=== PATIENT | female | born 1940 | race Caucasian/White ===

== ENCOUNTER → 2018-01-19 10:28 | Outpatient (CLI) | payer MEDICARE, SELFPAY | PROVIDERS: PCP Family Medicine; Visit Provider Internal Medicine Interventional Cardiology | DX: R20.0 Anesthesia of skin (principal); I45.4 Nonspecific intraventricular block; I47.1 Supraventricular tachycardia | CPT/HCPCS: 0298T ==

== ENCOUNTER → 2018-02-09 10:15 | Outpatient (CLI) | payer MEDICARE, SELFPAY | PROVIDERS: PCP Family Medicine; Visit Provider Nurse Practitioner Adult Health | DX: G56.02 Carpal tunnel syndrome, left upper limb (principal); I10 Essential (primary) hypertension | CPT/HCPCS: 95909; 99214 ==

== ENCOUNTER 2018-03-26 16:27 | Outpatient (REF) | payer MEDICARE, SELFPAY | END 2018-03-26 16:47 | LOC: NCHCN 16:27 | PROVIDERS: PCP Family Medicine; Visit Provider Family Medicine | DX: R82.90 Unspecified abnormal findings in urine (principal); Z87.440 Personal history of urinary (tract) infections | CPT/HCPCS: 87077; 87086 ==

== ENCOUNTER 2018-04-08 01:06 | Outpatient (CLI) | payer MEDICARE, SELFPAY ==
--- NOTE | 2018-04-08 10:30 | MERGE_ITS ---
*[facility]* *[facility]* [address] [place] [address] Date of study: 04/08/2018 Transthoracic Echocardiography M-mode, complete 2D, complete spectral Doppler, and color Doppler *STUDY CONCLUSIONS* Summary: 1. Left ventricle: The cavity size was normal. Wall thickness was increased increased in a pattern of mild to moderate LVH. Systolic function was normal. The estimated ejection fraction was 60-65%. Wall motion was normal; there were no regional wall motion abnormalities. Findings consistent with diastolic dysfunction. 2. Aortic valve: A bicuspid morphology cannot be excluded; moderately calcified leaflets. There was moderate stenosis. There was trivial regurgitation. Peak velocity (S): 3.5m/sec. Mean gradient (S): 26mm Hg. Valve area (VTI): 1.2cm^2. 3. 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 4. Mitral valve: Moderately calcified annulus. There was mild regurgitation. 5. Right ventricle: The cavity size was normal. Wall thickness was normal. Systolic function was normal. 6. Pulmonary arteries: Pulmonary systolic pressure was increased, in the range of 35mm Hg to 40mm Hg. *PATIENT PRESENTATION* Height: 162.6cm ((64in) ) S/D Pressure: 145 / 80 Weight: 95.7kg ((210.6lb) ) BSA: 2.12m^2 Test start time: 10:45 AM. Test stop time: 11:40 AM. ORDERING Ijeoma rCuz REFERRING Ijeoma Cruz PERFORMING Unknown PERFORMING Nv *PROCEDURE DATA* Procedure information: The patient was identified by two identifiers. This study was interpreted by [facility]. Pertinent images and digital data are archived for permanent storage and are available for subsequent review. Comparison was made to the study of 01/06/2007. Study status: Routine. Transthoracic echocardiography. M-mode, complete 2D, complete spectral Doppler, and color Doppler. A Transthoracic Echocardiogram was performed. Scanning was performed from the parasternal, apical, subcostal, and suprasternal notch acoustic windows. Images were obtained using an [id number] cardiac ultrasound machine. Image quality was adequate. Study completion: The patient tolerated the procedure well. There were no complications. History: PMH: Murmur. *CARDIAC ANATOMY* Left ventricle: The cavity size was normal. Wall thickness was increased increased in a pattern of mild to moderate LVH. Systolic function was normal. The estimated ejection fraction was 60-65%. Wall motion was normal; there were no regional wall motion abnormalities. Findings consistent with diastolic dysfunction. Aortic valve: A bicuspid morphology cannot be excluded; moderately calcified leaflets. Valve mobility was restricted. Doppler: There was moderate stenosis. There was trivial regurgitation. VTI ratio of LVOT to aortic valve: 0.39. Valve area (VTI): 1.2cm^2. Indexed valve area (VTI): 0.6cm^2/m^2. Peak velocity ratio of LVOT to aortic valve: 0.36. Valve area (Vmax): 1.1cm^2. Indexed valve area (Vmax): 0.5cm^2/m^2. Mean velocity ratio of LVOT to aortic valve: 0.41. Valve area (Vmean): 1.3cm^2. Indexed valve area (Vmean): 0.6cm^2/m^2. Mean gradient (S): 26mm Hg. Peak gradient (S): 48.9mm Hg. Aorta: Aortic root: The aortic root was normal in size. 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 Aortic arch: The aortic arch was normal in size. Mitral valve: Moderately calcified annulus. Mobility was not restricted. Doppler: Transvalvular velocity was within the normal range. There was no evidence for stenosis. There was mild regurgitation. Valve area by pressure half-time: 3.8cm^2. Indexed valve area by pressure half-time: 1.8cm^2/m^2. Peak gradient (D): 5.8mm Hg. Left atrium: The atrium was normal in size. Right ventricle: The cavity size was normal. Wall thickness was normal. Systolic function was normal. Pulmonic valve: Doppler: Transvalvular velocity was within the normal range. There was no evidence for stenosis. There was no significant regurgitation. Tricuspid valve: Structurally normal valve. Doppler: Transvalvular velocity was within the normal range. There was no evidence for stenosis. There was mild regurgitation. Pulmonary artery: Pulmonary systolic pressure was increased, in the range of 35mm Hg to 40mm Hg. Right atrium: The atrium was normal in size. Pericardium: There was no pericardial effusion. Systemic veins: Inferior vena cava: Well visualized. The vessel was patent and normal in size. The respirophasic diameter changes were in the normal range (greater than or equal to 50%). Measurements Left ventricle Value Reference LV ID, ED, PLAX 4.9 cm 3.5 - 6.0 LV ID, ES, PLAX 3.4 cm 2.1 - 4.0 LV PW thickness, ED, PLAX 1.1 cm LV end-diastolic volume, 1-p A2C 81 ml LV ejection fraction, 1-p A2C 62 % LV end-diastolic volume, 1-p A4C 55 ml LV ejection fraction, 1-p A4C 53 % LV e', lateral 0.066 m/sec LV E/e', lateral 18 LV e', medial 0.048 m/sec LV E/e', medial 25 LV e', average 0.057 m/sec LV E/e', average 21 Ventricular septum Value Reference IVS thickness, ED, PLAX 1.3 cm LVOT Value Reference LVOT ID, A-P 2.0 cm LVOT area 3.1 cm^2 LVOT peak velocity, S 1.25 m/sec LVOT mean velocity, S 1 m/sec LVOT VTI, S 32.4 cm LVOT peak gradient, S 6.2 mm Hg LVOT mean gradient, S 4.3 mm Hg Stroke volume (SV), LVOT DP 101 ml Stroke index (SV/bsa), LVOT DP 47 ml/m^2 Aortic valve Value Reference Aortic valve peak velocity, S 3.5 m/sec Aortic valve mean velocity, S 2.42 m/sec Aortic valve VTI, S 84.0 cm Aortic mean gradient, S 26 mm Hg Aortic peak gradient, S 48.9 mm Hg VTI ratio, LVOT/AV 0.39 Aortic valve area, VTI 1.2 cm^2 Velocity ratio, peak, LVOT/AV 0.36 Aortic valve area, peak velocity 1.1 cm^2 Velocity ratio, mean, LVOT/AV 0.41 Aortic valve area, mean velocity 1.3 cm^2 Aortic valve area/bsa, mean velocity 0.6 cm^2/m^2 Aortic regurg deceleration 252 cm/s^2 Aortic regurg pressure half-time 456 ms Aorta Value Reference Aortic root ID, ED 2.6 cm Ascending aorta ID, A-P, S 4.1 cm Left atrium Value Reference LA ID, A-P, ES 4.1 cm LA ID/bsa, A-P 1.9 cm/m^2 <=2.2 LA area, ES, A4C 20.6 cm^2 8.8 - 23.4 LA area, ES, A2C 19 cm^2 LA volume/bsa, ES, 1-p A4C 33 ml/m^2 LA volume, ES, 2-p 56 ml LA volume/bsa, ES, 2-p 26 ml/m^2 LA/aortic root ratio 1.58 Mitral valve Value Reference Mitral E-wave peak velocity 1.21 m/sec Mitral A-wave peak velocity 1.61 m/sec Mitral deceleration time 200 ms 150 - 230 Mitral pressure half-time 58 ms Mitral peak gradient, D 5.8 mm Hg Mitral E/A ratio, peak 0.75 Mitral valve area, PHT, DP 3.8 cm^2 Tricuspid valve Value Reference Tricuspid regurg peak velocity 3.1 m/sec Tricuspid peak RV-RA gradient 39.6 mm Hg Right atrium Value Reference RA area, ES, A4C 15.5 cm^2 8.3 - 19.5 Legend: (L) and (H) nicholas values outside specified reference range. I have personally reviewed the images and have reviewed and edited the reported findings. Electronically signed by Chema Constantino 04/08/2018 12:58
== END 2018-04-08 01:26 ==
PROVIDERS: PCP Family Medicine; Visit Provider Family Medicine
DX: R01.1 Cardiac murmur, unspecified (principal); I50.30 Unspecified diastolic (congestive) heart failure; I35.2 Nonrheumatic aortic (valve) stenosis with insufficiency; I34.0 Nonrheumatic mitral (valve) insufficiency
CPT/HCPCS: 93306

== ENCOUNTER → 2018-07-15 13:34 | Outpatient (BNVA) | payer MEDICARE, SELFPAY | PROVIDERS: PCP Family Medicine; Referring Provider Family Medicine; Visit Provider Student in an Organized Health Care Education/Training Program | DX: I35.0 Nonrheumatic aortic (valve) stenosis (principal); I71.9 Aortic aneurysm of unspecified site, without rupture; Z86.73 Personal history of transient ischemic attack (TIA), and cerebral infarction without residual deficits; I10 Essential (primary) hypertension | CPT/HCPCS: 99204; 99215 ==

== ENCOUNTER 2018-09-11 11:12 | Outpatient (CLI) | payer MEDICARE, SELFPAY ==
[2018-09-11 12:32] LABS: ALT 24 U/L (12-78); AST 23 U/L (15-37); Albumin 3.7 g/dL (3.4-5.0); Alkaline Phosphatase 107 U/L (46-116); BUN 22 mg/dL (7-18); Bilirubin, Total 0.5 mg/dL (0.2-1.0); CREATININE 0.83 mg/dL (0.55-1.02); Calcium 8.5 mg/dL (8.5-10.1); Chloride 101 mmol/L (98-107); Glucose 98 mg/dL (70-100); Sodium 140 mmol/L (136-145); Total Protein 6.6 g/dL (6.4-8.2)
== END 2018-09-11 11:32 ==
PROVIDERS: PCP Family Medicine; Visit Provider Family Medicine
DX: R06.09 Other forms of dyspnea (principal)
CPT/HCPCS: 36415; 80053

== ENCOUNTER 2018-09-25 15:32 | Outpatient (REF) | payer MEDICARE, SELFPAY ==
[2018-09-25 19:39] LABS: Abs Immature Grans 0.01 k/cumm (0.0-0.09); Absolute Basophil Count 0.03 k/cumm (0.0-0.2); Absolute Eosinophil Count 0.25 k/cumm (0.0-0.7); Absolute Lymphocyte Count 1.01 k/cumm (1.2-3.4); Absolute Monocyte Count 0.59 k/cumm (0.11-0.7); Absolute Neutrophil Count 4.27 k/cumm (1.2-6.7); Basophils % 0.5; Eosinophils % 4.1; HCT 40.6 % (36.0-46.0); Immature Grans % 0.2; Lymphocytes % 16.4; Mean Corpuscular Hemoglobin 30.7 pg (27.0-33.0); Mean Corpuscular Volume 95.8 fL (80-95); Mean Platelet Volume 11.4 fL (8.0-11.0); Monocytes % 9.6; Neutrophils % 69.2; Platelet Count 267 x1000/uL (130-400); RBC 4.24 m/cumm (4.00-5.20); RBC Distribution Width 12.7 % (11.7-14.6); White Blood Cell Count 6.16 k/cumm (4.4-10.8)
[2018-09-25 21:02] LABS: Cholesterol 182 mg/dL (50-200); HDL Cholesterol 38 mg/dL (40-60); LDL CHOLESTEROL 111 mg/dL (<100); TSH (W/Ref FT4) 1.54 uIU/mL (0.358-3.74); Triglyceride 119 mg/dL (30-150); Vitamin B12 777 pg/mL (193-986)
[2018-09-25 21:09] LABS: ESR 21 MM/HR (0-30)
[2018-09-25 21:24] LABS: C-Reactive Protein 0.55 mg/dL (0.0-0.3); NT-proBNP 83 pg/mL
[2018-09-28 12:41] LABS: IgA 125 mg/dL (85-499); Interpretation SEE COMMENTS; Tissue Transglutaminase IgA <1.2 U/mL (<4.0)
== END 2018-09-25 15:52 ==
LOC: NCHCN 15:32
PROVIDERS: PCP Family Medicine; Visit Provider Family Medicine
DX: E78.5 Hyperlipidemia, unspecified (principal); R53.83 Other fatigue; R06.09 Other forms of dyspnea; R19.7 Diarrhea, unspecified; R63.4 Abnormal weight loss
CPT/HCPCS: 80061; 82784; 83516; 83721; 85652; 82607; 83880; 84443; 85025; 86140

== ENCOUNTER 2018-10-19 01:12 | Outpatient (CLI) | payer MEDICARE, SELFPAY ==
--- NOTE | 2018-10-19 09:38 | DI.RAD_ITS ---
SYMPTOM/DIAGNOSIS: DYSPNEA ON EXERTION, R06.09 PA AND LATERAL CHEST: The heart is normal in size. The lungs are clear. The mediastinal structures and pleura appear intact. CONCLUSION: Normal chest.
== END 2018-10-19 01:32 ==
PROVIDERS: PCP Family Medicine; Visit Provider Family Medicine
DX: R06.09 Other forms of dyspnea (principal)
CPT/HCPCS: 94060; 94726; 71046

== ENCOUNTER 2018-10-19 02:20 | Outpatient (CLI) | payer MEDICARE, SELFPAY ==
--- NOTE | 2018-10-19 | PFT_ITS ---
PULMONARY FUNCTION TEST REPORT Patient - Maite Boggs [birth year] DATE OF SERVICE October 19, 2018 REQUESTING PROVIDER Ijeoma Cruz M.D. INTERPRETATION OF STUDY Spirometry shows no evidence of obstructive airways disease. No bronchodilator response. LUNG VOLUMES - Lung volumes show no evidence of restriction. DIFFUSION CAPACITY- The patient was unable to perform acceptable DLCO maneuver AIRWAY RESISTANCE Normal. IMPRESSION No evidence of obstructive or restrictive pattern. The patient was unable to perform DLCO maneuver. Clinical correlation recommended. When this study was compared to previous one from 07/18/2011, the patient has 160 cc improvement in FVC and 130 cc improvement in FEV1. Verónica Stevenson M.D. Britney DD 10/21/2018 DT - 10/21/2018
[2018-10-19] MEDS: Albuterol HFA 18 GM 200 PUFF INH IH (09:22)
[2018-10-19] MEDS: Inhaler, Assist Device 1 EACH MC (09:22)
== END 2018-10-19 02:40 ==
PROVIDERS: PCP Family Medicine; Visit Provider Family Medicine
DX: R06.09 Other forms of dyspnea (principal); Z87.01 Personal history of pneumonia (recurrent)
CPT/HCPCS: 94060; 94726

== ENCOUNTER 2018-10-28 00:04 | Outpatient (CLI) | payer MEDICARE, SELFPAY ==
--- NOTE | 2018-10-28 06:58 | MERGEMPI_ITS ---
*[facility]* *[facility]* [address] [place] [address] Myocardial Perfusion Imaging - SPECT Regadenoson Date of study: 10/28/2018 *PATIENT PRESENTATION* Height: 162.6cm (64in) Blood Pressure: Weight: 97.3kg (214lb) BSA: 2.14m^2 Referring physician: Ramírez Waite MD Ordering physician: Chema Constantino This study was performed as a Stress Only study Impressions: Normal perfusion by Tc99m Sestamibi Imaging. Summary: 1. Myocardial perfusion imaging: No myocardial perfusion defects noted. 2. The calculated left ventricular ejection fraction after stress: 51%. There is moderate hypokinesis involving the septal wall(s) of the left ventricle. Indication: R06.09. History: Risk factors: REASON FOR VISIT: PATIENT HAS BEEN EXPERIENCING SHORTNESS OF BREATH WITH EVERYDAY ACTIVITY AND INCREASING FATIGUE OVER THE PAST YEAR. PAST MEDICAL HISTORY: BIPOLAR DISORDER, GERD, SHIELA ON BIPAP, CVA, HTN, AORTIC STENOSIS, AORTIC DILATION. 10/19/18 PULMONARY FUNCTION TEST IMPRESSION: NO EVIDENCE OF OBSTRUCTIVE OR RESTRICTIVE PATTERN. FAMILY HISTORY: NONE. SMOKING STATUS: NEVER SMOKER. EXERCISE ROUTINE: NONE. Dyslipidemia. Cholesterol: 182mg/dl. HDL: 38mg/dl. LDL: 111mg/dl. Triglycerides: 119mg/dl. ALLERGIES: LISINOPRIL, ARIPIPRAZOLE, LATEX, AMITRIPTYLINE, PREGABALIN, HYDROCHLOROTHIAZIDE, ADHESIVE BANDAGES, ENVIRONMENTAL. MEDICATIONS: ASPIRIN 81MG, DAILY. AMLODIPINE 15MG, DAILY. SIMVASTATIN 10MG, QPM. ROPINIROLE 3MG, QPM. RANITIDINE HCL 300MG, QHS. QUETIAPINE 250MG, QPM. PANTOPRAZOLE 40MG, DAILY. NITROGLYCERIN 0.4MG, SL PRN. MULTIVITAMIN, DAILY. GABAPENTIN 300MG QHS, 600MG QAM AND NOON. VITAMIN B-12 1,000MCG, DAILY. CLOTRIMAZOLE 45GM TOPICAL, BID. CITALOPRAM 40MG, DAILY. VITAMIN D3 1,000UNIT, DAILY. VENTOLIN HFA 2 PUFF INHALATION, Q6H PRN. Imaging Technique: Protocol: Regadenoson. Acquisition: Gated SPECT; 1 day - rest/stress. The patient was imaged in the supine position. Attenuation correction used. Isotope administration: - Rest. Tc[99m]-sestamibi. Dose: 9mCi. Injection time: 08:20 AM. Injection to stress time: 00:45. - Stress. Tc[99m]-sestamibi. Dose: 28.5mCi. Injection time: 10:20 AM. 1-2 min before end of exercise Baseline ECG: TODAY: SINUS RHYTHM WITH LEFT BUNDLE BRANCH BLOCK. HEART RATE 68 BPM. PREVIOUS EKG 12/25/17: SINUS RHYTHM WITH LEFT BUNDLE BRANCH BLOCK AND LEFT AXIS. Stress protocol: +--------+--+ + + + !Stage !HR!BP (mmHg) !Symptoms !Comments ! +--------+--+ + + + !Baseline!68!136/80 (99) ! ! ! +--------+--+ + + + !1 min !90!134/70 (91) !7 out of 10 chest !Inject Regadenoson.! ! ! ! !discomfort, abdominal ! ! ! ! ! !pain/pressure, nausea ! ! +--------+--+ + + + !3 min !86!138/72 (94) !4 out of 10 chest ! ! ! ! ! !discomfort, headache, ! ! ! ! ! !nausea, feels weak ! ! +--------+--+ + + + !6 min !84!140/80 (100)! ! ! +--------+--+ + + + !10 min !76!166/88 (114)! ! ! +--------+--+ + + + !1 min !--! ! !Inject Regadenoson.! +--------+--+ + + + * Stress results: The rate-pressure product for the peak heart rate and blood pressure was [id number] Hg/min. Stress ECG: MPI STRESS TEST ENDED IN 12MIN 45 SEC WHEN EFFECTS OF REGADENOSON INJECTION SUBSIDED. SIDE EFFECTS RESOLVED FOLLOWING AMINOPHYLLINE INJECTION AT 10MIN 22SEC. APPROPRIATE HEART RATE AND BLOOD PRESSURE RESPONSE TO REGADENOSON INJECTION. 7/10 LEFT STERNAL CHEST PAIN OCCURING WITH REGADENOSON INJECTION. OTHER SYMPTOMS REPORTED INCLUDE ABDOMINAL DISCOMFORT, NAUSEA, HEADACHE, AND AN OVERALL FEELING OF WEAKNESS. PATIENT VISIBLY SHAKEY 6 MIN INTO TESTING. SYMPTOMS RESOLVING FOLLOWING AMINOPHYLLINE INJECTION. OCCASIONAL PVC NOTED. NO ST SEGMENT CHANGES OBSERVED. Myocardial perfusion: Imaging information: gated. No myocardial perfusion defects noted. Ventricular Function (Wall Motion): The calculated left ventricular ejection fraction after stress: 51%. There is moderate hypokinesis involving the septal wall(s) of the left ventricle. Study data: Ramírez Waite MD supervised and was readily available during the procedure. This study was interpreted by [facility]. Study status: Routine. Consent: The risks, benefits, and alternatives to the procedure were explained to the patient and informed consent was obtained. Procedure: Initial setup. A baseline ECG was recorded. Surface ECG leads and manual cuff blood pressure measurements were monitored. Heart sounds: Normal. Lung sounds: Normal. Regadenoson stress test. Stress testing was performed, with regadenoson by intravenous bolus, for a total dose of 0.4mgover 10.00sec, followed by a 5ml saline flush. The infusion was terminated due to per protocol. The patient was unable to exercise due to left bundle branch block. Study completion: All catheters inserted during the procedure were removed. The patient tolerated the procedure well and was discharged from the lab. Discharge: The patient left the laboratory in stable condition. Birthdate: Patient birthdate: 1940. Sex: Gender: female. Study date: Study date: 10/28/2018. Study time: 00:01 AM. Electronically signed by Ramírez Waite MD 10/28/2018 16:56
[2018-10-28] MEDS: Regadenoson 0.4 MG/5 ML SYR IVP (10:32)
== END 2018-10-28 00:24 ==
PROVIDERS: PCP Family Medicine; Visit Provider Student in an Organized Health Care Education/Training Program
DX: R06.09 Other forms of dyspnea (principal); R53.83 Other fatigue; I10 Essential (primary) hypertension; I35.0 Nonrheumatic aortic (valve) stenosis; E78.5 Hyperlipidemia, unspecified
CPT/HCPCS: 78452; 93016; 93018; 93017; J0280; J2785

== ENCOUNTER 2018-11-06 00:39 | Outpatient (CLI) | payer MEDICARE, SELFPAY ==
--- NOTE | 2018-11-06 14:02 | MERGE_ITS ---
*[facility]* *[facility]* [address] [place] [address] Date of study: 11/06/2018 Transthoracic Echocardiography M-mode, complete 2D, complete spectral Doppler, and color Doppler *STUDY CONCLUSIONS* Summary: 1. Left ventricle: The cavity size was normal. Wall thickness was increased in a pattern of mild LVH. Asymmetric hypertrophy with significant septal hypertrophy (16 mm). Systolic function was normal. The estimated ejection fraction was 55-60%. Wall motion was normal; there were no regional wall motion abnormalities. Doppler parameters are consistent with high ventricular filling pressure. 2. Right ventricle: The cavity size was normal. Systolic function was normal. 3. Ventricular septum: Septal motion showed paradoxical motion consistent with Bundle Branch Block. 4. Left atrium: The atrium was mildly dilated. 5. Aortic valve: Trileaflet; moderately thickened, mildly calcified leaflets. Valve mobility was restricted. Transvalvular velocity was increased. There was moderate stenosis. There was mild regurgitation. Peak velocity (S): 3.3m/sec. VTI ratio of LVOT to aortic valve: 0.41. 6. Inferior vena cava: The vessel was patent and normal in size. The respirophasic diameter changes were in the normal range (greater than or equal to 50%), consistent with normal central venous pressure. *PATIENT PRESENTATION* Height: 162.6cm ((64in) ) S/D Pressure: 135 / 85 Weight: 95.7kg ((210.6lb) ) BSA: 2.12m^2 Test start time: 02:25 PM. Test stop time: 03:30 PM. CONSULTING Ijeoma Cruz V PERFORMING Unknown ORDERING Chema Constantino REFERRING Chema Constantino PERFORMING [facility] TUBE CARRIER RT Sabrina Arroyo)(CT), [facility] *PROCEDURE DATA* Procedure information: The patient was identified by two identifiers. This study was interpreted by [facility]. Pertinent images and digital data are archived for permanent storage and are available for subsequent review. Comparison was made to the study of 04/08/2018. Study status: Routine. Transthoracic echocardiography. M-mode, complete 2D, complete spectral Doppler, and color Doppler. A Transthoracic Echocardiogram was performed. Scanning was performed from the parasternal, apical, subcostal, and suprasternal notch acoustic windows. Images were obtained using an [id number] cardiac ultrasound machine. Image quality was adequate. Study completion: The patient tolerated the procedure well. There were no complications. History: PMH: Aortic stenosis i35.0 SOB R06.02. *CARDIAC ANATOMY* Left ventricle: The cavity size was normal. Wall thickness was increased in a pattern of mild LVH. Asymmetric hypertrophy with significant septal hypertrophy (16 mm). Systolic function was normal. The estimated ejection fraction was 55-60%. Wall motion was normal; there were no regional wall motion abnormalities. Findings consistent with diastolic dysfunction. Doppler parameters are consistent with high ventricular filling pressure. Aortic valve: Trileaflet; moderately thickened, mildly calcified leaflets. Valve mobility was restricted. Doppler: Transvalvular velocity was increased. There was moderate stenosis. There was mild regurgitation. VTI ratio of LVOT to aortic valve: 0.41. Valve area (VTI): 1.3cm^2. Indexed valve area (VTI): 0.6cm^2/m^2. Peak velocity ratio of LVOT to aortic valve: 0.36. Valve area (Vmax): 1.1cm^2. Indexed valve area (Vmax): 0.5cm^2/m^2. Mean velocity ratio of LVOT to aortic valve: 0.39. Valve area (Vmean): 1.2cm^2. Indexed valve area (Vmean): 0.6cm^2/m^2. Mean gradient (S): 26.1mm Hg. Peak gradient (S): 42.7mm Hg. Aorta: Aortic root: The aortic root was normal in size. Ascending aorta: The ascending aorta was mildly dilated (41 mm). Mitral valve: Mildly calcified annulus. Mobility was not restricted. Doppler: Transvalvular velocity was within the normal range. There was no evidence for stenosis. There was trivial regurgitation. Valve area by pressure half-time: 2.7cm^2. Indexed valve area by pressure half-time: 1.3cm^2/m^2. Peak gradient (D): 5mm Hg. Left atrium: The atrium was mildly dilated. Right ventricle: The cavity size was normal. Systolic function was normal. Ventricular septum: Septal motion showed paradoxical motion consistent with Bundle Branch Block. Pulmonic valve: Poorly visualized. Doppler: Transvalvular velocity was within the normal range. There was no evidence for stenosis. There was no significant regurgitation. Tricuspid valve: Structurally normal valve. Doppler: Transvalvular velocity was within the normal range. There was no evidence for stenosis. There was trivial regurgitation. Pulmonary artery: Poorly visualized. Pulmonary systolic pressure was in the range of 35mm Hg to 40mm Hg. Right atrium: The atrium was normal in size. Pericardium: There was no pericardial effusion. Systemic veins: Inferior vena cava: Well visualized. The vessel was patent and normal in size. The respirophasic diameter changes were in the normal range (greater than or equal to 50%), consistent with normal central venous pressure. Measurements Left ventricle Value 04/08/2018 Reference LV ID, ED, PLAX 4.6 cm 4.9 3.5 - 6.0 LV ID, ES, PLAX 3.4 cm 3.4 2.1 - 4.0 LV PW thickness, ED, PLAX 1.0 cm 1.1 LV end-diastolic volume, 92 ml 81 1-p A2C LV ejection fraction, 1-p 56 % 62 A2C LV end-diastolic volume, 69 ml 55 1-p A4C LV ejection fraction, 1-p 52 % 53 A4C LV e', lateral 0.072 m/sec 0.066 LV E/e', lateral 15 18 LV e', medial 0.048 m/sec 0.048 LV E/e', medial 23 25 LV e', average 0.06 m/sec 0.057 LV E/e', average 19 21 Ventricular septum Value 04/08/2018 Reference IVS thickness, ED, PLAX 1.7 cm 1.3 LVOT Value 04/08/2018 Reference LVOT ID, A-P 2.0 cm 2.0 LVOT area 3.1 cm^2 3.1 LVOT peak velocity, S 1.17 m/sec 1.25 LVOT mean velocity, S 0.96 m/sec 1 LVOT VTI, S 27.5 cm 32.4 LVOT peak gradient, S 5.5 mm Hg 6.2 LVOT mean gradient, S 3.9 mm Hg 4.3 Stroke volume (SV), LVOT 86 ml 101 DP Stroke index (SV/bsa), 41 ml/m^2 47 LVOT DP Aortic valve Value 04/08/2018 Reference Aortic valve peak 3.3 m/sec 3.5 velocity, S Aortic valve mean 2.47 m/sec 2.42 velocity, S Aortic valve VTI, S 67.0 cm 84.0 Aortic mean gradient, S 26.1 mm Hg 26 Aortic peak gradient, S 42.7 mm Hg 48.9 VTI ratio, LVOT/AV 0.41 0.39 Aortic valve area, VTI 1.3 cm^2 1.2 Velocity ratio, peak, 0.36 0.36 LVOT/AV Aortic valve area, peak 1.1 cm^2 1.1 velocity Velocity ratio, mean, 0.39 0.41 LVOT/AV Aortic valve area, mean 1.2 cm^2 1.3 velocity Aortic valve area/bsa, 0.6 cm^2/m^2 0.6 mean velocity Aorta Value 04/08/2018 Reference Aortic root ID, ED 2.6 cm 2.6 Ascending aorta ID, A-P, S 4.1 cm 4.1 Left atrium Value 04/08/2018 Reference LA ID, A-P, ES 4.0 cm 4.1 LA ID/bsa, A-P 1.9 cm/m^2 1.9 <=2.2 LA area, ES, A4C 21.7 cm^2 20.6 8.8 - 23.4 LA area, ES, A2C 21 cm^2 19 LA volume/bsa, ES, 1-p A4C 39 ml/m^2 33 LA volume, ES, 2-p 70 ml 56 LA volume/bsa, ES, 2-p 33 ml/m^2 26 LA/aortic root ratio 1.52 1.58 Mitral valve Value 04/08/2018 Reference Mitral E-wave peak 1.11 m/sec 1.21 velocity Mitral A-wave peak 1.42 m/sec 1.61 velocity Mitral deceleration time (H) 282 ms 200 150 - 230 Mitral pressure half-time 82 ms 58 Mitral peak gradient, D 5 mm Hg 5.8 Mitral E/A ratio, peak 0.78 0.75 Mitral valve area, PHT, DP 2.7 cm^2 3.8 Tricuspid valve Value 04/08/2018 Reference Tricuspid regurg peak 3 m/sec 3.1 velocity Tricuspid peak RV-RA 35.6 mm Hg 39.6 gradient Right atrium Value 04/08/2018 Reference RA area, ES, A4C 16.7 cm^2 15.5 8.3 - 19.5 Legend: (L) and (H) nicholas values outside specified reference range. I have personally reviewed the images and have reviewed and edited the reported findings. Electronically signed by Arley Flaherty 11/09/2018 07:59
== END 2018-11-06 00:59 ==
PROVIDERS: PCP Family Medicine; Visit Provider Student in an Organized Health Care Education/Training Program
DX: I35.0 Nonrheumatic aortic (valve) stenosis (principal); R06.02 Shortness of breath; I50.1 Left ventricular failure, unspecified; I10 Essential (primary) hypertension; E78.5 Hyperlipidemia, unspecified
CPT/HCPCS: 93306

== ENCOUNTER → 2018-11-18 13:07 | Outpatient (BNVA) | payer MEDICARE, SELFPAY | PROVIDERS: PCP Family Medicine; Visit Provider Student in an Organized Health Care Education/Training Program | DX: I50.32 Chronic diastolic (congestive) heart failure (principal); I35.0 Nonrheumatic aortic (valve) stenosis; I77.819 Aortic ectasia, unspecified site; I63.9 Cerebral infarction, unspecified; I11.0 Hypertensive heart disease with heart failure; R53.83 Other fatigue | CPT/HCPCS: 99214 ==

== ENCOUNTER 2019-02-11 14:51 | Emergency (ER) | payer MEDICARE, SELFPAY ==
[2019-02-11] VITALS (17 sets, daily range): BP systolic 120–149; BP diastolic 57–75; PULSE 70–87; RESP 12–22; TEMP 36.5–36.6; O2SAT 91–97
[2019-02-11 15:46] LABS: Abs Immature Grans 0.01 k/cumm (0.0-0.09); Absolute Basophil Count 0.02 k/cumm (0.0-0.2); Absolute Eosinophil Count 0.24 k/cumm (0.0-0.7); Absolute Lymphocyte Count 1.51 k/cumm (1.2-3.4); Absolute Monocyte Count 0.49 k/cumm (0.11-0.7); Absolute Neutrophil Count 4.72 k/cumm (1.2-6.7); Basophils % 0.3; Eosinophils % 3.4; HCT 41.3 % (36.0-46.0); HGB 13.6 g/dL (12.0-15.5); Immature Grans % 0.1; Lymphocytes % 21.6; Mean Corp. HGB Concentration 32.9 g/dL (32.0-36.0); Mean Corpuscular Hemoglobin 31.4 pg (27.0-33.0); Mean Corpuscular Volume 95.4 fL (80-95); Mean Platelet Volume 10.6 fL (8.0-11.0); Neutrophils % 67.6; Platelet Count 277 x1000/uL (130-400); RBC 4.33 m/cumm (4.00-5.20); White Blood Cell Count 6.99 k/cumm (4.4-10.8)
--- NOTE | 2019-02-11 15:47 | DI.CT_ITS ---
SYMPTOM/DIAGNOSIS: WEAKNESS NONCONTRAST HEAD CT: Comparison is made with 25 December 2017. No intracranial hemorrhage, mass or infarct is seen. There is no significant atrophy.. The ventricles are normal in size. There are no white matter changes visible. No skull fracture or sinus opacification is seen. IMPRESSION: Negative head CT.
--- NOTE | 2019-02-11 15:47 | ED.GENADUL_ITS ---
Discharge Plan Disposition Patient Disposition: HOME Condition: Stable Discharge Details Chief Complaint: GenMedical Clinical Impression: General weakness, Fatigue Primary Care Provider: Ijeoma Cruz V ED Provider: Ramírez Sheridan Home Meds and New Rx's Prescriptions: Continued amlodipine [Norvasc] 10 mg tablet 15 mg PO DAILY RF: 0 spironolactone 25 mg tablet 12.5 mg PO DAILY Qty: 30 RF: 5 multivitamin 1 EACH tablet 1 ea PO DAILY RF: 0 acetaminophen [Tylenol] 325 MG tablet 500 mg PO PRN RF: 0 nitroglycerin [Nitrostat] 0.4 MG tablet, sublingual 0.4 mg Sublingual DIRECTED RF: 0 aspirin [Aspirin Low-Strength] 81 MG tablet,chewable 81 mg PO DAILY RF: 0 albuterol sulfate [Ventolin HFA] 8 GM HFA aerosol inhaler 2 puff Inhalation Q6H PRN RF: 0 clotrimazole 45 GM cream 45 gm Topical BID RF: 0 omega-3 fatty acids-fish oil 1 EACH capsule 1 ea PO DAILY RF: 0 cholecalciferol (vitamin D3) 400 UNIT tablet,chewable 1,000 unit IU DAILY RF: 0 HAND SPLINTS BILATERAL DAILY RF: 0 ropinirole 1 MG tablet 3 mg PO 5 PM RF: 0 cyanocobalamin (vitamin B-12) [Vitamin B-12] 1,000 MCG tablet 1,000 mcg PO DAILY RF: 0 gabapentin 300 MG capsule 600 mg PO .QAM, NOON RF: 0 citalopram [Celexa] 20 mg tablet 40 mg PO DAILY RF: 0 gabapentin 300 MG capsule 300 mg PO HS RF: 0 quetiapine [Seroquel XR] 200 MG tablet extended release 24 hr 200 mg PO .Q5PM RF: 0 quetiapine [Seroquel XR] 50 MG tablet extended release 24 hr 50 mg PO .Q5PM RF: 0 ranitidine HCl 300 MG tablet 300 mg PO HS RF: 0 simvastatin 10 MG tablet 10 mg PO QPM RF: 0 pantoprazole 40 MG tablet,delayed release (DR/EC) 40 mg PO DAILY RF: 0 Discharge Instructions Instructions: Fatigue (ED) Additional Instructions: follow up with your primary care provider within 1-2 weeks if you have difficulty breathing, severe chest or abdominal pain, weakness that is one sided or feel more ill return to the emergency department Medical Decision Making 78 yo female with hx of htn, hld, who comes in with chief complaint of feeling tired and fatigue for weeks but worse today. Denies any focal weakness, fevers, falls, headaches, chest pain or sob or abd pain. Denies new meds or foods and doesn't have any symptoms so doubt CO poisoning. She has no focal neuro deficits on exam, NIH of 0 with CN II-XII intact. She has been under significant stress recently with diagnosed recently with dementia and also states she has someone that is stalking her. This could be psychosomatic symptoms but will evaluate for possible ischemia, obtain ct head to eval for sdh, and eval for anemia and hypothyroidism. No focal motor deficits so doubt cva at this time imaging and labs unremarkable. Does have some bacteria in her urine but denies any uti symptoms so will hold on abx at this time. She has no deficits and feels well enough to go home. Will d/c and advised f/u with pcp and return precautions given Differential Diagnosis anemia, thyroid disorder, sdh Medical Records Medical records reviewed: Yes I reviewed the patient's medical records. Imaging Data Radiologic Study: Attestation: I personally reviewed and interpreted this imaging study as follows: Imaging: X-Ray Radiologist's impression: no acute findings Radiologic Study #2: Attestation: I personally reviewed and interpreted this imaging study as follows: Imaging: CT Scan Radiologist's impression: no acute findings Lab Data Lab results reviewed: Yes I reviewed the patient's lab results. ECG Data Attestation: I personally reviewed and interpreted this ECG (s) as follows: Prior ECG tracings: available for review Interpretation: sinus rhythm, rate of 76, pr 140, qtc 470 HPI General Mode of arrival: ambulatory . Date/Time Provider Initiated Documentation: 02/11/19 15:14 . Limitations to Documentation: no limitations . Information obtained by: patient . History of Present Illness 78 year old F presents to the emergency department with the chief complaint of fatigue, described as moderate, No relieving factors improve symptom(s), No exacerbating factors reported . Patient did receive the following treatments prior to arrival, none Related Data Home Medications Medication Instructions Recorded Confirmed Hand Splints BILATERAL DAILY 11/30/12 11/18/18 acetaminophen [Tylenol] 500 mg PO PRN tab-cap 11/30/12 02/11/19 albuterol sulfate [Ventolin HFA] 2 puff INHALATION Q6H PRN puff 11/30/12 02/11/19 aspirin [Aspirin Low-Strength] 81 mg PO DAILY tab-cap 11/30/12 02/11/19 cholecalciferol (vitamin D3) 1,000 unit IU DAILY tab.chew 11/30/12 02/11/19 clotrimazole 45 gm TOPICAL BID script 11/30/12 02/11/19 multivitamin 1 ea PO DAILY 11/30/12 02/11/19 nitroglycerin [Nitrostat] 0.4 mg SUBLINGUAL DIRECTED 11/30/12 02/11/19 omega-3 fatty acids-fish oil 1 ea PO DAILY 11/30/12 02/11/19 cyanocobalamin (vitamin B-12) 1,000 mcg PO DAILY 11/19/13 02/11/19 [Vitamin B-12] gabapentin 600 mg PO .QAM, NOON 11/19/13 02/11/19 gabapentin 300 mg PO HS 11/08/15 02/11/19 quetiapine [Seroquel XR] 50 mg PO .Q5PM 11/08/15 02/11/19 quetiapine [Seroquel XR] 200 mg PO .Q5PM 11/08/15 02/11/19 ropinirole 3 mg PO 5 PM tab-cap 01/30/17 02/11/19 pantoprazole 40 mg PO DAILY 12/25/17 02/11/19 ranitidine HCl 300 mg PO HS 12/25/17 02/11/19 simvastatin 10 mg PO QPM 12/25/17 02/11/19 amlodipine 10 mg tablet 15 mg PO DAILY tab 07/15/18 02/11/19 citalopram 20 mg tablet 40 mg PO DAILY tab 07/15/18 02/11/19 spironolactone 25 mg tablet 12.5 mg PO DAILY #30 tab 11/18/18 02/11/19 Previous Rx's Medication Instructions Recorded spironolactone 25 mg tablet 12.5 mg PO DAILY #30 tab 11/18/18 Allergies Allergy/AdvReac Type Severity Reaction Status Date / Time lisinopril Allergy Severe Throat Unverified 02/11/19 15:30 Sweilling aripiprazole [From Abilify] Allergy Intermediate Unverified 02/11/19 15:30 latex Allergy Intermediate Topical Unverified 02/11/19 15:30 Irritation amitriptyline AdvReac Intermediate Burning Unverified 02/11/19 15:30 Sensation pregabalin AdvReac Mild Visual Unverified 02/11/19 15:30 Disturbances hydrochlorothiazide AdvReac Unknown Unknown Unverified 02/11/19 15:30 Environmental Allergy Intermediate Rhinitis Uncoded 02/11/19 15:30 adhesive bandages AdvReac Intermediate Itching, Uncoded 02/11/19 15:30 Skinn Irritation General Stated Complaint: GenMedical CRAIG: 3 Review of Systems Review of Systems All systems reviewed & are unremarkable except as noted in HPI and below Constitutional Denies chills and Denies fever(s) Cardiovascular Denies chest pain and Denies dyspnea Respiratory Denies cough and Denies dyspnea Gastrointestinal Denies abdominal pain, Denies nausea and Denies vomiting Genitourinary Denies dysuria Musculoskeletal Denies joint swelling Integumentary/Breasts Denies rash Psychiatric Denies depression Endocrine Denies cold intolerance and Denies heat intolerance [facility] Social History Smoking/Tobacco Use Status: Never Drug use: Never Substance use type: does not use Do you feel safe in your relationship?: Yes Exam Const General: no acute distress Orientation: alert HENMT Head: normal to inspection Ears: external ears normal General nose exam: external nose normal Mouth: moist mucous membranes Eyes General: appearance normal, both eyes and all related structures Neck Neck: normal visual inspection Resp Effort & Inspection: normal respiratory effort and able to speak in complete sentences Cardio Rate: regular rate Skin General skin exam: no rashes or lesions noted Neuro General: alert and oriented x3 Extrem General: normal to inspection Psych Mental Status: mental status grossly normal Course Vital Signs Temperature 36.6 C 02/11/19 15:26 Pulse 84 02/11/19 15:26 Respiratory Rate 16 02/11/19 15:26 Blood Pressure 149/72 H 02/11/19 15:26 Pulse Oximetry 96 02/11/19 15:26 Temperature 36.6 C 02/11/19 15:26 Temperature Source Skin 02/11/19 15:26 Pulse 84 02/11/19 15:26 Respiratory Rate 16 02/11/19 15:39 Respiratory Effort Non-Labored 02/11/19 15:39 Respiratory Depth Normal 02/11/19 15:39 Respiratory Pattern Normal 02/11/19 15:39 Blood Pressure 149/72 H 02/11/19 15:26 Blood Pressure Position Sitting 02/11/19 15:26 Pulse Oximetry 96 02/11/19 15:26 Oxygen Delivery Method Room Air 02/11/19 15:26 Oxygen Flow Rate 0 02/11/19 15:26 Pain Level 0 02/11/19 15:26 Lab/Test Results Lab/Test Results: Laboratory Tests Range/Units 02/11/19 15:30 WBC (4.4-10.8) k/cumm 6.99 RBC (4.00-5.20) m/cumm 4.33 Hgb (12.0-15.5) g/dL 13.6 Hct (36.0-46.0) % 41.3 MCV (80-95) fL 95.4 H MCH (27.0-33.0) pg 31.4 MCHC (32.0-36.0) g/dL 32.9 RDW (11.7-14.6) % 13.0 Plt Count (130-400) x1000/uL 277 MPV (8.0-11.0) fL 10.6 Immature Gran % 0.1 Neutrophils % 67.6 Lymphocytes % 21.6 Monocytes % 7.0 Eosinophils % 3.4 Basophils % 0.3 Absolute Neutrophils (1.2-6.7) k/cumm 4.72 Absolute Lymphocytes (1.2-3.4) k/cumm 1.51 Absolute Monocytes (0.11-0.7) k/cumm 0.49 Absolute Eosinophils (0.0-0.7) k/cumm 0.24 Absolute Basophils (0.0-0.2) k/cumm 0.02
--- NOTE | 2019-02-11 15:47 | DI.RAD_ITS ---
SYMPTOM/DIAGNOSIS: WEAKNESS , ? PNA PA AND LATERAL CHEST: Comparison is made with 19 Oct 2018 The heart is enlarged and the aorta is tortuous, unchanged. The lungs appear clear. No infiltrate, effusion or pulmonary edema is seen. No thoracic compression fractures are present, IMPRESSION: Cardiomegaly. No acute abnormality.
[2019-02-11 15:57] LABS: ALT 21 U/L (14-59); AST 11 U/L (15-37); Albumin 3.6 g/dL (3.4-5.0); Alkaline Phosphatase 99 U/L (46-116); Anion Gap 9.6 mmol/L (3-11); BUN 26 mg/dL (7-18); Bilirubin, Total 0.5 mg/dL (0.2-1.0); CO2 29.4 mmol/L (21.0-32.0); CREATININE 0.88 mg/dL (0.55-1.02); Calcium 8.3 mg/dL (8.5-10.1); Chloride 103 mmol/L (98-107); Glucose 123 mg/dL (70-100); Magnesium 1.8 mg/dL (1.8-2.4); Potassium 3.6 mmol/L (3.5-5.1); Sodium 142 mmol/L (136-145); Total Protein 6.9 g/dL (6.4-8.2)
[2019-02-11 16:00] LABS: Troponin I < 0.05 ng/mL (0.00-0.06)
[2019-02-11 16:22] LABS: TSH (W/Ref FT4) 2.68 uIU/mL (0.36-3.74)
--- NOTE | 2019-02-11 16:47 | DI.VRAD_ITS ---
EXAM: CT Head Without Contrast EXAM DATE/TIME: 02/11/2019 4:27 PM CLINICAL HISTORY: 78 years old, female; Other: Weakness, general; Additional info: ? Pna TECHNIQUE: Imaging protocol: Computed tomography of the head without contrast. COMPARISON: CT HEAD WITHOUT STROKE PROTOCOL 12/25/2017 9:26 AM FINDINGS: Brain: Normal. No hemorrhage. Unremarkable white matter. No mass effect. Ventricles: Normal. No ventriculomegaly. Bones/joints: Unremarkable. No acute fracture. Sinuses: Visualized sinuses are unremarkable. No fluid levels. Mastoid air cells: Visualized mastoid air cells are well aerated. No mastoid effusion. Soft tissues: Unremarkable. Vasculature: Calcifications of bilateral vertebral and internal carotid arteries. IMPRESSION: No acute intracranial abnormality. Dictated and Authenticated by: Davin Sagastume MD. Ordering:DEVEN Elmore MD
--- NOTE | 2019-02-11 16:53 | DI.VRAD_ITS ---
EXAM: XR Chest, 2 Views EXAM DATE/TIME: 02/11/2019 4:19 PM CLINICAL HISTORY: 78 years old, female; Other: Weakness; Additional info: ? Pna TECHNIQUE: Imaging protocol: XR of the chest, 2 views. COMPARISON: CR XR CHEST 2V PA LATERAL 10/19/2018 9:30 AM FINDINGS: Lungs: Unremarkable. No consolidation. Pleural space: Unremarkable. No pleural effusion. No pneumothorax. Heart/Mediastinum: Unremarkable. No cardiomegaly. Bones/joints: Degenerative changes of the spine. IMPRESSION: No acute abnormality. Dictated and Authenticated by: Davin Sagastume MD. Ordering:DEVEN Elmore MD
[2019-02-11 17:07] LABS: Bilirubin Negative (Negative); Blood Negative (Negative); Clarity Clear (Clear); Glucose Negative (Negative); Ketones Negative (Negative); Leukocyte Esterase Small (Negative); Nitrite Negative (Negative); Urobilinogen 0.2 EU/dL (Up TO 0.2)
[2019-02-11 17:21] LABS: Epithelial Cells Moderate HPF (Negative); RBC Negative (0-2)
[2019-02-11 17:22] LABS: Bacteria Few HPF (Negative); C & S Indicated? Yes; Casts Negative LPF (Negative); Crystals Negative HPF (Negative); Mucus Negative (Negative); Other Cells Mod Transitional (Negative)
== END 2019-02-11 17:42 | disposition home or self-care (01) ==
PROVIDERS: Emergency Provider Emergency Medicine; PCP Family Medicine
DX: R53.1 Weakness (principal); R53.83 Other fatigue; I10 Essential (primary) hypertension
CPT/HCPCS: 36415; 80053; 93005; 99285; 70450; 71046; 81003; 81015; 83735; 84443; 84484; 85025; 87086; 93010; 99284

== ENCOUNTER 2019-04-02 02:11 | Outpatient (CLI) | payer MEDICARE, SELFPAY ==
--- NOTE | 2019-04-02 13:29 | DI.US_ITS ---
APPROVED REPORT Conclusion Left Ventricle : The left ventricle is normal size. The left ventricular systolic function is normal. The left ventricular ejection fraction is within the normal range. Mild concentric left ventricular hypertrophy. The mid anteroseptal wall is mildly hypokinetic. The apical anteroseptal wall is mildly hypokinetic. The apical anterior wall is mildly hypokinetic. The diastolic function is abnormal. Left atrial pressure is elevated. LVEF is 55-60%. Right Ventricle : Right ventricle is normal in size. The right ventricular systolic function appears to be normal. Atria : Left atrium is mildly dilated. The right atrium size is normal. Aortic Valve : Aortic valve is possibly bicuspid. Aortic valve leaflets are moderately thickened. Mod erate aortic stenosis (mean gradient =30 mmHg, peak gradient equals 52 mmHg). Mitral Valve : The mitral valve is thickened but opens well. Moderate mitral annular calcification. M ild mitral stenosis (mean pressure gradient=2.5 mmHg). Mild mitral regurgitation. Great Vessels : The IVC is normal in size and collapses >50% with inspiration. Tricuspid Valve : The tricuspid valve is normal in structure. Mild tricuspid regurgitation. The RVSP is 35-40 mmHg. Echocardiogram dated 11/06/2018 the aortic valve peak gradient has increased from 42-52 but JERAD has no t changed significantly (1.29cm2). The mean gradient has increased from 26-30mmHg. Apical and mid a nteroseptal mild hypokinesis is now present. EXAM: Comprehensive 2D, Doppler, and color-flow Echocardiogram Patient Location: Out-Patient Cook Helper Dessert: Ami Shin [facility] ([facility]) Rhythm: BBB Indications: shortness of breath. aortic stenosis r06.02, i35.0 Left Ventricle The left ventricle is normal size. The left ventricular systolic function is normal. The left ventric ular ejection fraction is within the normal range. Mild concentric left ventricular hypertrophy. The basal anteroseptal wall is mildly hypokinetic. The mid anteroseptal wall is mildly hypokinetic. The a pical anteroseptal wall is mildly hypokinetic. The apical anterior wall is mildly hypokinetic. The di astolic function is abnormal. Left atrial pressure is elevated. LVEF is 55-60%. Right Ventricle Right ventricle is normal in size. The right ventricular systolic function appears to be normal. Atria Left atrium is mildly dilated. The right atrium size is normal. Aortic Valve Aortic valve is possibly bicuspid. Aortic valve leaflets are moderately thickened. Moderate aortic st enosis. JERAD by VTI 1.29cm2. JERAD by vmax is 1.1cm2. JERAD indexed 0.56cm2/m2. Peak and mean gradients are 52 and 30mmhg respectively. DI by VTI = 0.41. Mild aortic regurgitation. Mitral Valve The mitral valve is thickened but opens well. Moderate mitral annular calcification. Mild mitral sten osis (mean pressure gradient=2.5 mmHg). Mild mitral regurgitation. Tricuspid Valve The tricuspid valve is normal in structure. Mild tricuspid regurgitation. The RVSP is 35-40 mmHg. Pulmonic Valve Pulmonic valve is not well visualized. Trace pulmonic regurgitation. Great Vessels The aortic root is normal in size. Ascending aorta is mildly dilated (4.1). The IVC is normal in size and collapses >50% with inspiration. Pericardium Prominent anterior epicardial fat pad is present. 2D Dimensions IVSd 1.67 cm F: 0.6-1.0 LV EDV A2C 69.40 mL PWd 1.15 cm F: 0.6 - 1.0 LV EDV A4C 62.50 mL LVDd 4.63 cm F: 3.9 - 5.3 LA Volume Index A2C 28.28 mL/m2 LVDs 3.10 cm F: 2.2 - 3.5 LA Volume Index A4C 38.02 mL/m2 Aortic Root 2.73 cm F: 2.7 - 3.3 LA Volume Index Biplane 33.82 mL/m2 RA Area A4C 18.08 cm2 LA Area A4C 22.84 cm2 LVOT 1.99 cm (M/F) 1.5-2.5 LA Area A2C 20.32 cm2 Ascending Aorta 4.09 cm F: 2.3 - 3.1 EF AP4 57.60 % LVEF (Teich) 61.66 % EF AP2 58.93 % LVEF (Benitez's) 56.42 % F: 54 - 74 EF BP 56.42 % LV Volume 49.27 mL F: 46 - 106 LV Volume Index 24.75 mL/m2 F: 29 - 61 FS 33.07 % LV Diastology E Decel Time 147.00 (160-240 msec) E/A Ratio 0.7 MED E' 0.04 (>0.07 m/s) LV E/e MED 31.92 (<14) LAT E' 0.06 (>0.1 m/s) LV E/e LAT 17.37 (<14) Pulm Vein s 0.52 m/s PV S/D Ratio 1.44 Pulm Vein d 0.36 m/s Pulm Vein a 0.41 m/s A-A Duration 135.37 msec Aortic Valve LVOT Area 3.11 cm2 LVOT Peak Martín. 1.30 m/s LVOT Mean Martín. 1.08 m/s LVOT Peak Gr. 6.71 mmHg JERAD Vmax Index 0.56 cm2/m2 LVOT Mean Gr. 5.02 mmHg LVOT VTI 0.31 m JERAD Mean Martín. Index 0.65 cm2/m2 AoV Peak Martín. 3.62 (0.5-1.3 m/s) AoV Mean Martín. 2.61 m/s AO Peak GR. 52.35 mmHg AO Mean GR. 30.43 (<5 mmHg) AO VTI 0.76 (0.18-0.25 m) JERAD (VTI) 1.29 (2.5-4.5 cm2) JERAD (VTI) Index 0.65 cm/m2 Mitral Valve MV E Max Martín. 1.12 (0.4-1.3 m/s) MVA VTI 4.62 (4.0-6.0 cm2) MV A Velocity 1.68 (0.4-1.3 m/s) E/A Ratio 0.67 MV Decel. Time 146.77 (160-240 msec) MV PHT 42.56 msec MVA PHT 5.17 cm2 Tricuspid Valve TR P. Velocity 3.01 m/s TV Regurg Vmax 3.01 m/s TR P. Gradient 36.36 mmHg
== END 2019-04-02 02:31 ==
PROVIDERS: PCP Family Medicine; Visit Provider Student in an Organized Health Care Education/Training Program
DX: R06.02 Shortness of breath (principal); I35.0 Nonrheumatic aortic (valve) stenosis; I34.8 Other nonrheumatic mitral valve disorders; I50.1 Left ventricular failure, unspecified; I50.32 Chronic diastolic (congestive) heart failure
CPT/HCPCS: 93306

== ENCOUNTER → 2019-04-09 10:26 | Outpatient (BNVA) | payer MEDICARE, SELFPAY | PROVIDERS: PCP Family Medicine; Referring Provider Family Medicine; Visit Provider Internal Medicine Cardiovascular Disease | DX: I77.819 Aortic ectasia, unspecified site (principal); I50.30 Unspecified diastolic (congestive) heart failure; I35.0 Nonrheumatic aortic (valve) stenosis; R53.83 Other fatigue; I11.0 Hypertensive heart disease with heart failure | CPT/HCPCS: 99204; 99215 ==

== ENCOUNTER 2019-07-19 01:41 | Outpatient (CLI) | payer MEDICARE, SELFPAY ==
--- NOTE | 2019-07-19 07:57 | DI.US_ITS ---
EXAM: US PELVIS TRANSVAGINAL CLINICAL HISTORY: POSTMENOPAUSAL VAGINAL BLEEDING, N95.0. TECHNIQUE: Ultrasound of the pelvic, both abdmonal and tranvaginal was performed using standard prot ocol. COMPARISON: No previous for comparison. FINDINGS: KIDNEYS: Kidneys are symmetric in size. No evidence of renal calculi. No evidence of hydronephrosis. No renal mass or cyst identified. UTERUS: Position: Anteverted. Size: 5.4 x 2.5 x 3.9 cm Endometrium: 0.3 cm. Normal for patient's menstrual status. Myometrium: There are 2 myometrial masses. The larger measures 1.9 x 1.6 x 2.4 cm. The smaller wayne ures 1.5 x 1.6 x 2.5 cm. These are likely uterine fibroids. Cervix: Unremarkable as visualized. OVARIES: Right: Not visualized transabdominally or transvaginally. Left: Not visualized transabdominally or transvaginally. CUL-DE-SAC: Free fluid: None. IMPRESSION: 1. Normal sonographic appearance of the kidneys. 2. Fibroid uterus. Endometrial stripe within normal limits for the patient's age and menstrual statu s. 3. Ovaries not visualized transabdominally or transvaginally.
== END 2019-07-19 02:01 ==
PROVIDERS: PCP Family Medicine; Visit Provider Family Medicine
DX: N95.0 Postmenopausal bleeding (principal); N85.4 Malposition of uterus; D25.9 Leiomyoma of uterus, unspecified
CPT/HCPCS: 76830; 76856

== ENCOUNTER 2019-07-30 09:09 | Outpatient (REF) | payer MEDICARE, SELFPAY ==
--- NOTE | 2019-07-30 08:00 | SKI_PTH ---
PATIENT: Maite Boggs LOC: [facility] U#:[id number] AGE/SX: 78/F ROOM: RE07/30/[address]: Ijeoma Cruz V : 1940 BED: DIS: 07/30/2019 SPEC #: [id number] RECD: 08/02/19 12:28 STATUS: TANVIR RELeslye #: [id number] YAMILETH: 07/30/19 08:[address]: Ijeoma Cruz V DEPT: Surgical Specimen RECD BY: Dulce Woodall Tissues: 1 - SKIN BIOPSY(SHAVE/PUNCH) Procedures: SKIN LEVEL 4 Comments: [id number]
== END 2019-07-30 09:29 ==
LOC: NCHCN 09:09
PROVIDERS: PCP Family Medicine; Visit Provider Family Medicine
DX: C44.319 Basal cell carcinoma of skin of other parts of face (principal)
CPT/HCPCS: 88305

== ENCOUNTER → 2019-10-07 10:29 | Outpatient (BNVA) | payer MEDICARE, SELFPAY | PROVIDERS: PCP Family Medicine; Referring Provider Family Medicine; Visit Provider Internal Medicine Cardiovascular Disease | DX: R01.1 Cardiac murmur, unspecified (principal); I50.30 Unspecified diastolic (congestive) heart failure; I35.0 Nonrheumatic aortic (valve) stenosis; R53.83 Other fatigue; I11.0 Hypertensive heart disease with heart failure | CPT/HCPCS: 99442; 99213 ==

== ENCOUNTER → 2020-04-04 10:27 | Outpatient (BNVA) | payer MEDICARE, SELFPAY | PROVIDERS: PCP Family Medicine; Referring Provider Family Medicine; Visit Provider Internal Medicine Cardiovascular Disease | DX: I35.0 Nonrheumatic aortic (valve) stenosis (principal); I50.30 Unspecified diastolic (congestive) heart failure; I11.0 Hypertensive heart disease with heart failure; Z86.73 Personal history of transient ischemic attack (TIA), and cerebral infarction without residual deficits | CPT/HCPCS: 99214 ==

== ENCOUNTER 2020-05-02 14:07 | Outpatient (REF) | payer MEDICARE, SELFPAY ==
[2020-05-02 19:46] LABS: ALT 15 U/L (14-59); AST 12 U/L (15-37); Albumin 3.9 g/dL (3.4-5.0); Alkaline Phosphatase 89 U/L (46-116); Anion Gap 7.7 mmol/L (3-11); BUN 22 mg/dL (7-18); Bilirubin, Total 0.6 mg/dL (0.2-1.0); CO2 29.3 mmol/L (21.0-32.0); CREATININE 0.98 mg/dL (0.55-1.02); Calcium 8.6 mg/dL (8.5-10.1); Calculated LDL 169 mg/dL (<100); Chloride 106 mmol/L (98-107); Cholesterol 236 mg/dL (<200); Estimated GFR 54.75 (mL/min/1.73m2); Glucose 101 mg/dL (74-106); HDL Cholesterol 44 mg/dL (40-60); Potassium 4.6 mmol/L (3.5-5.1); Sodium 143 mmol/L (136-145); TSH (W/Ref FT4) 1.54 uIU/mL (0.36-3.74); Total Protein 6.9 g/dL (6.4-8.2); Triglyceride 117 mg/dL (<150)
== END 2020-05-02 14:27 ==
LOC: NCHCN 14:07
PROVIDERS: PCP Family Medicine; Visit Provider Family Medicine
DX: I10 Essential (primary) hypertension (principal); E78.5 Hyperlipidemia, unspecified; D64.9 Anemia, unspecified; F31.9 Bipolar disorder, unspecified
CPT/HCPCS: 80053; 80061; 84443; 85014; 85018

== ENCOUNTER 2020-08-30 02:43 | Observation (INO) | payer MEDICARE, SELFPAY ==
[2020-08-30] VITALS (20 sets, daily range): BP systolic 119–161; BP diastolic 53–101; PULSE 63–84; RESP 11–21; TEMP 36.2–36.9; O2SAT 92–97
--- NOTE | 2020-08-30 02:30 | RT.EKG_ITS ---
APPROVED REPORT Exam: Resting ECG Patient Location: E HR:83 bpm ECG Measurements Heart Rate 83 AXIS MI 177 P -50 QRSd 140 QRS -50 QT 425 T 108 QTc 501 Conclusion Ectopic atrial rhythm...abnormal P axis, normal rate Left bundle branch block...QRSd>120, broad/notched R ST elevation secondary to IVCD...Multiple VCG criteria
--- NOTE | 2020-08-30 03:00 | DI.CT_ITS ---
EXAM: CT HEAD WO CLINICAL HISTORY: weakness. TECHNIQUE: Imaging Protocol: Axial computed tomography images with coronal and sagittal reformatted images were created and reviewed COMPARISON: CT CT HEAD WO from 02/11/2019 FINDINGS: There are no skull fractures nor fluid in the visualized paranasal sinuses. There is no evidence of intracranial hemorrhage, mass effect, or shift of midline structures. There are no extra-axial fluid collections. The ventricles are not enlarged or shifted and there is no blo od within the ventricular system nor within the basal cisterns. Heavy calcification of both vertebral arteries at the skull base is noted as well as the intracaverno us and supraclinoid internal carotid arteries. IMPRESSION: No acute intracranial findings on this noninfused CT scan of the brain. Heavy vascular calcifications the skull base as described above. If clinically indicated follow-up MRI can be performed. RADIATION DOSE DELIVERED: 713.3mGy.cm Total DLP DATA REPOSITORY: All CT scans at this facility are submitted to the National Radiology Data Registry (NRDR) Dose Index Registry (DIR) with the [employer] (A[employer]). RADIATION OPTIMIZATION: All CT scans at this facility use at least one of these dose optimization te chniques: automated exposure control; mA and/or kV adjustment per patient size (includes targeted exa ms where dose is matched to clinical indication); or iterative reconstruction.
--- NOTE | 2020-08-30 03:05 | ED.GENADUL_ITS ---
Discharge Plan Disposition Patient Disposition: [facility] INPATIENT Condition: Stable Discharge Details Chief Complaint: Dizzy/Sync Clinical Impression: Light-headed, Dizziness, Elevated troponin Primary Care Provider: Ijeoma Cruz V ED Provider: Ramírez Sheridan Home Meds and New Rx's Prescriptions: No Action N-acetyl cysteine capsule PO DAILY RF: 0 amlodipine [Norvasc] 10 mg tablet 15 mg PO DAILY RF: 0 spironolactone 25 mg tablet 12.5 mg PO DAILY Qty: 30 RF: 5 multivitamin 1 EACH tablet 1 ea PO DAILY RF: 0 acetaminophen [Tylenol] 325 MG tablet 500 mg PO PRN RF: 0 nitroglycerin [Nitrostat] 0.4 MG tablet, sublingual 0.4 mg Sublingual DIRECTED RF: 0 aspirin [Aspirin Low-Strength] 81 MG tablet,chewable 81 mg PO DAILY RF: 0 albuterol sulfate [Ventolin HFA] 8 GM HFA aerosol inhaler 2 puff Inhalation Q6H PRN RF: 0 clotrimazole 45 GM cream 45 gm Topical BID RF: 0 omega-3 fatty acids-fish oil 1 EACH capsule 1 ea PO DAILY RF: 0 cholecalciferol (vitamin D3) 400 UNIT tablet,chewable 1,000 unit IU DAILY RF: 0 ropinirole 1 mg tablet 3 mg PO 5 PM RF: 0 cyanocobalamin (vitamin B-12) [Vitamin B-12] 1,000 MCG tablet 1,000 mcg PO DAILY RF: 0 gabapentin 300 mg capsule 600 mg PO .COMPLEX RF: 0 quetiapine [Seroquel XR] 200 MG tablet extended release 24 hr 200 mg PO .Q5PM RF: 0 quetiapine [Seroquel XR] 50 MG tablet extended release 24 hr 50 mg PO .Q5PM RF: 0 simvastatin 10 MG tablet 10 mg PO QPM RF: 0 pantoprazole 40 mg tablet,delayed release (DR/EC) 20 mg PO DAILY RF: 0 Medical Decision Making 80 yo female with hx of aortic stenosis, diastolic chf, who comes in with ems with intermittent feeling dizzy and generally weak. She states for several days she has felt more tired and weak tessie normal. Tonight she noticed a strange smell and called 911. The fire department cleared her house without finding any gas leaks per report and she reported her dizziness symptoms and weakness so ems brought her here. She states after the smell she started to have a sensation of room unsteadiness, no falls and has no dizziness/unsteadiness now. She denies fevers, chills, chest pain, dyspnea, cough, abdominal pain. She has no focal neuro deficits on exam with good finger operations management professionals strength, no drift, CN II-XII intact, NIH of 0. She does note a mild frontal headache since having the smell, not the worst of her life and was not thunderclap on presentation. She is still feeling general weakness now as her only symptom despite having good strength on her exam. Will obtain labs to evaluate for anemia, electrolyte abnormalities and also obtain ua to evaluate for uti. Has no cough, dyspnea or fevers so doubt pneumonia and is vaccinated for covid so doubt this. Symptoms not consistent with sah but given the headache and weakness will obtain ct to evaluate for possible subdural. no findings to suggest cva on exam. pt remains stable, only lab abnormality is a troponinin of 0.38 and has never had an elevation in the past. She states she has had several episodes in the past where she will feel lightheaded and dizzy similar to tonight but never was evaluated for this. She continues to deny any chest discomfort or dyspnea. Will consult with cardiology at [facility] Spoke with Dr. Louis who reviewed case and presentation and agrees with holding on heparin at this time given lack of chest discomfort or dyspnea. He did recommend trending troponins and obtaining echo, if troponin significantly elevates then would heparanize and reconsult cardiology for possible transfer. Spoke with Dr. Stark who accepts for admission. Other possible cause of her symptoms would be a small cva given the change in smell but given this resolved and has no deficits feel this is unlikely Differential Diagnosis Differential Diagnosis: anemia, electrolyte abnormality, ich, uti Medical Records Medical records reviewed: Yes I reviewed the patient's medical records. Imaging Data Radiologic Study: Attestation: I personally reviewed and interpreted this imaging study as follows: Imaging: CT Scan My impression: no acute findings Radiologist's impression: IMPRESSION: 1. No acute intracranial abnormality seen. 2. Marked degeneration of the right TMJ. Radiologic Study #2: Attestation: I personally reviewed and interpreted this imaging study as follows: Imaging: X-Ray Radiologist's impression: no acute findings on cxr Lab Data Lab results reviewed: Yes I reviewed the patient's lab results. ECG Data Attestation: I personally reviewed and interpreted this ECG (s) as follows: Prior ECG tracings: available for review Interpretation: sinus rhythm, rate of 83, pr 177, left bundle branch block, no acute changes from prior ekg HPI General Mode of arrival: EMS . Date/Time Provider Initiated Documentation: 08/30/20 02:55 . Limitations to Documentation: no limitations . Information obtained by: patient . History of Present Illness 80 year old F presents to the emergency department with the chief complaint of dizzy, described as mild, and it has been intermittent. No relieving factors improve symptom(s), No exacerbating factors reported . Patient did receive the following treatments prior to arrival, none Related Data Home Medications Medication Instructions Recorded Confirmed acetaminophen [Tylenol] 500 mg PO PRN tab-cap 11/30/12 08/30/20 albuterol sulfate [Ventolin HFA] 2 puff INHALATION Q6H PRN puff 11/30/12 08/30/20 aspirin [Aspirin Low-Strength] 81 mg PO DAILY tab-cap 11/30/12 08/30/20 cholecalciferol (vitamin D3) 1,000 unit IU DAILY tab.chew 11/30/12 08/30/20 clotrimazole 45 gm TOPICAL BID script 11/30/12 08/30/20 multivitamin 1 ea PO DAILY 11/30/12 08/30/20 nitroglycerin [Nitrostat] 0.4 mg SUBLINGUAL DIRECTED 11/30/12 04/04/20 omega-3 fatty acids-fish oil 1 ea PO DAILY 11/30/12 08/30/20 cyanocobalamin (vitamin B-12) 1,000 mcg PO DAILY 11/19/13 08/30/20 [Vitamin B-12] quetiapine [Seroquel XR] 50 mg PO .Q5PM 11/08/15 08/30/20 quetiapine [Seroquel XR] 200 mg PO .Q5PM 11/08/15 08/30/20 simvastatin 10 mg PO QPM 12/25/17 08/30/20 amlodipine 10 mg tablet 15 mg PO DAILY tab 07/15/18 08/30/20 spironolactone 25 mg tablet 12.5 mg PO DAILY #30 tab 11/18/18 08/30/20 N-acetyl cysteine PO DAILY 04/09/19 04/04/20 ropinirole 1 mg tablet 3 mg PO 5 PM tab-cap 04/09/19 08/30/20 gabapentin 300 mg capsule 600 mg PO .COMPLEX cap 04/13/19 08/30/20 pantoprazole 40 mg tablet,delayed 20 mg PO DAILY tab 04/13/19 08/30/20 release Previous Rx's Medication Instructions Recorded spironolactone 25 mg tablet 12.5 mg PO DAILY #30 tab 11/18/18 Allergies Allergy/AdvReac Type Severity Reaction Status Date / Time lisinopril Allergy Severe Throat Unverified 08/30/20 02:55 Sweilling aripiprazole [From Abilify] Allergy Intermediate Unverified 08/30/20 02:55 latex Allergy Intermediate Topical Unverified 08/30/20 02:55 Irritation amitriptyline AdvReac Intermediate Burning Unverified 08/30/20 02:55 Sensation pregabalin AdvReac Mild Visual Unverified 08/30/20 02:55 Disturbances hydrochlorothiazide AdvReac Unknown Unknown Unverified 08/30/20 02:55 Environmental Allergy Intermediate Rhinitis Uncoded 08/30/20 02:55 adhesive bandages AdvReac Intermediate Itching, Uncoded 08/30/20 02:55 Skinn Irritation General Stated Complaint: Dizzy/Sync CRAIG: 3 Review of Systems All systems reviewed & are unremarkable except as noted in HPI and below Constitutional Constitutional: Denies chills and Denies fever(s) Eyes Eyes: Denies loss of vision ENT Ears, Nose, Mouth, and Throat: Denies change in voice Cardiovascular Cardiovascular: Denies chest pain and Denies dyspnea Respiratory Respiratory: Denies cough and Denies dyspnea Gastrointestinal Gastrointestinal: Denies abdominal pain, Denies nausea and Denies vomiting Genitourinary Genitourinary: Denies dysuria Neurologic Neurologic: Denies loss of vision [facility] Medical History (Updated 08/30/20 @ 04:28 by Ramírez Sheridan MD) Anemia Anxiety Aortic dilatation Aortic stenosis Balance problem Bicuspid aortic valve Bipolar disorder Carpal tunnel syndrome, bilateral Cervicalgia Chronic diarrhea CVA (cerebral vascular accident) (~1999) Diastolic CHF Diastolic dysfunction Diverticulosis of colon Dizziness Dysphagia Exercise induced bronchospasm Fatigue Fibromyalgia Frequent headaches GERD (gastroesophageal reflux disease) Helicobacter pylori (H. pylori) infection Hyperlipidemia Hypertension Left leg numbness Memory deficit Murmur Myalgia and myositis SHIELA treated with BiPAP Palliative care patient Post traumatic stress disorder Reactive depression (situational) Schizoaffective disorder Seasonal affective disorder Skin tag Sleep apnea Tinnitus Unintentional weight loss Surgical History History of hip replacement Hx of tonsillectomy S/P cholecystectomy (~2001) Family History Mother Bipolar 1 disorder, mixed Heart disease Alcohol abuse Son Alcohol abuse Heart disease Bipolar 1 disorder, mixed Son No problems noted. Son No problems noted. Daughter No problems noted. 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 Pets and animals: No Current gender identity: female What is your relationship status?: How often do you talk on the phone with friends or family?: twice per week How often do you get together with friends or relatives?: once per week How often do you attend jehovah's witness or yazidism services?: 1-3 times per year Panel score (0-1 are the most socially isolated patients): 2 What type of physical activity do you participate in: none and sedentary lifestyle Xochitl/Congregation: Congregation Special xochitl needs: No Seatbelt use: always Water heater temp set <120 deg: Yes Working smoke detector in home: Yes Fire extinguisher in home: Yes Do you feel safe at home: Yes Do you feel safe in your relationship?: Yes Additional Social history: Happily to since 1959. Grew up next door to each other in [place], [place]. Lots of financial stress. Run out of money every month, even with combined SS. Lives in [address] housing. 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 Has a vehicle; only excess needs one. Exam Const General: no acute distress Orientation: alert HENMT Head: normal to inspection Ears: external ears normal General nose exam: external nose normal Mouth: moist mucous membranes Eyes General: appearance normal, both eyes and all related structures Neck Neck: normal visual inspection Resp Effort & Inspection: normal respiratory effort and able to speak in complete sentences Cardio Rate: regular rate Skin General skin exam: no rashes or lesions noted Neuro General: patient alert and patient oriented x3 Extrem General: normal to inspection Psych Mental Status: mental status grossly normal Course Vital Signs Vital signs: Vital Signs Temperature 36.7 C 08/30/20 02:45 Pulse 84 08/30/20 02:45 Respiratory Rate 15 08/30/20 02:45 Blood Pressure 154/101 H 08/30/20 02:45 Pulse Oximetry 97 08/30/20 02:45 Temperature 36.7 C 08/30/20 02:45 Temperature Source Tympanic 08/30/20 02:45 Pulse 84 08/30/20 02:45 Respiratory Rate 15 08/30/20 02:45 Respiratory Effort Non-Labored 08/30/20 02:58 Respiratory Depth Normal 08/30/20 02:58 Respiratory Pattern Normal 08/30/20 02:58 Blood Pressure 154/101 H 08/30/20 02:45 Blood Pressure Position Supine 08/30/20 02:45 Pulse Oximetry 97 08/30/20 02:45 Oxygen Delivery Method Room Air 08/30/20 02:45 Oxygen Flow Rate 0 08/30/20 02:45
[2020-08-30 03:06] LABS: Abs Immature Grans 0.02 10^3/uL (0.0-0.06); Absolute Basophil Count 0.03 10^3/uL (0.0-0.2); Absolute Eosinophil Count 0.23 10^3/uL (0.0-0.7); Absolute Lymphocyte Count 1.79 10^3/uL (1.2-3.4); Absolute Monocyte Count 0.57 10^3/uL (0.1-0.8); Absolute Neutrophil Count 4.79 10^3/uL (1.2-6.7); Basophils % 0.4; Eosinophils % 3.1; HCT 41.6 % (36.0-46.0); HGB 13.6 g/dL (11.2-15.7); Immature Grans % 0.3; Lymphocytes % 24.1; MCH 31.1 pg (27.0-33.0); MCHC 32.7 % (32.0-36.0); MPV 10.1 fL (8.0-11.0); Monocytes % 7.7; Neutrophils % 64.4; Nucleated RBC 0 %; Platelet Count 272 10^3/uL (130-400); RBC 4.38 10^6/uL (3.93-5.22); RDW-SD 42.9 fL; WBC 7.43 10^3/uL (4.4-10.8)
[2020-08-30] MEDS: Acetaminophen 500 MG TAB 1000 MG PO (03:19)
--- NOTE | 2020-08-30 03:19 | NUR.NOTE ---
Nursing Note: Pt to radiology via stretcher
[2020-08-30 03:21] LABS: Prothrombin Time 10.4 sec (9.3-11.0)
[2020-08-30 03:23] LABS: Bilirubin Negative (Negative); Blood Negative (Negative); Clarity Clear (Clear); Glucose Negative (Negative); Ketones Negative (Negative); Leukocyte Esterase Negative (Negative); Nitrite Negative (Negative); Urobilinogen 0.2 EU/dL (Up TO 0.2)
--- NOTE | 2020-08-30 03:30 | DI.RAD_ITS ---
EXAM: XR PORTABLE CHEST AP CLINICAL HISTORY: weakness, elevated troponin. TECHNIQUE: 2D digital imaging was performed. COMPARISON: No exams were available for comparison FINDINGS: Heart size is normal. The mediastinum is not widened. Lungs are clear. No infiltrates nor obvious pleural effusions. Chest leads in place. Incidentally noted is evidence of previous right shoulder surgery including bi ceps tenodesis. IMPRESSION: No acute pulmonary findings on this single AP portable view of the chest. DATA REPOSITORY: RADIATION DOSE DELIVERED:
[2020-08-30 03:34] LABS: Carboxyhemoglobin 1.4 %
[2020-08-30 03:34] LABS: ALT 22 U/L (14-59); AST 15 U/L (15-37); Albumin 3.8 g/dL (3.4-5.0); Alkaline Phosphatase 108 U/L (46-116); Anion Gap 5.8 mmol/L (3-11); BUN 26 mg/dL (7-18); Bilirubin, Direct 0.1 mg/dL (0.0-0.2); Bilirubin, Total 0.4 mg/dL (0.2-1.0); CO2 33.2 mmol/L (21.0-32.0); CREATININE 0.9 mg/dL (0.55-1.02); Calcium 8.7 mg/dL (8.5-10.1); Chloride 101 mmol/L (98-107); Glucose 112 mg/dL (74-106); NT-proBNP 191 pg/mL (<300); Potassium 3.9 mmol/L (3.5-5.1); Sodium 140 mmol/L (136-145); Total Protein 7.4 g/dL (6.4-8.2)
[2020-08-30 03:36] LABS: Troponin I 0.38 ng/mL (<0.06)
--- NOTE | 2020-08-30 03:45 | DI.VRAD_ITS ---
PROCEDURE INFORMATION: Exam: CT Head Without Contrast Exam date and time: 08/30/2020 3:23 AM Age: 80 years old Clinical indication: Dizziness and other: General weakness; Patient HX: Headache, dizziness, weakness, smells burning odor TECHNIQUE: Imaging protocol: Computed tomography of the head without contrast. Radiation optimization: All CT scans at this facility use at least one of these dose optimization techniques: automated exposure control; mA and/or kV adjustment per patient size (includes targeted exams where dose is matched to clinical indication); or iterative reconstruction. Other technique: STROKE PROTOCOL was implemented. COMPARISON: CT HEAD WO 02/11/2019 4:27 PM FINDINGS: Brain: No acute intracranial hemorrhage, mass-effect, midline shift, or extra-axial collection is seen. The alexis white matter differentiation appears preserved. Cerebral ventricles: The ventricular system and basilar cisterns appear appropriate in size and configuration. Bones/joints: The bony calvarium appears intact. No depressed skull fracture is seen. There is marked degeneration of the right temporomandibular joint. Paranasal sinuses: The visualized paranasal sinuses appear well-aerated. Mastoid air cells: The mastoid air cells appear well-aerated. Auditory system: The middle ear cavities appear clear. Soft tissue density material within the right external auditory canal probably represents cerumen; however, direct inspection is recommended for definitive evaluation. Orbital cavity: The globes and intraorbital structures appear grossly intact. Vasculature: There is atherosclerotic calcification within the intracranial portion of the internal carotid and vertebral arteries bilaterally. Soft tissues: No significant scalp lesion is seen. IMPRESSION: 1. No acute intracranial abnormality seen. 2. Marked degeneration of the right TMJ. ASSESSMENT: ASPECTS ([place] Stroke Program Early CT Score) is 10. Dictated and Authenticated by: Jeffrey Alfonso MD. Ordering:DEVEN Elmore MD
[2020-08-30] MEDS: Aspirin 81 MG CHEW 324 MG CH (03:52)
--- NOTE | 2020-08-30 03:58 | DI.VRAD_ITS ---
PROCEDURE INFORMATION: Exam: XR Chest Exam date and time: 08/30/2020 3:38 AM Age: 80 years old Clinical indication: Abnormal findings; Abnormal diagnostic tests; Other: Elevated troponin; Other: Weakness TECHNIQUE: Imaging protocol: XR of the chest Views: 1 view. COMPARISON: CR XR CHEST 2V PA LATERAL 02/11/2019 4:17 PM FINDINGS: Lungs: There is diffuse coarsening of interstitial pulmonary markings as seen previously. No pulmonary consolidation is demonstrated. Pleural spaces: No pleural effusion or pneumothorax is demonstrated. Heart/Mediastinum: Heart size is normal. Cardiac monitoring leads overlie the exam. Bones/joints: There is resorption of the distal right clavicle, also seen on the comparison exam from February 11, 2019. Otherwise, the visualized bony structures appear grossly intact, as seen. IMPRESSION: No active disease is seen in the chest. Dictated and Authenticated by: Jeffrey Alfonso MD. Ordering:DEVEN Elmore MD
--- NOTE | 2020-08-30 07:00 | HPE_ITS ---
Date of service: 08/30/20 Time of Service: 07:01 Assessment and Plan Assessment and plan (1) Elevated troponin: Start date: 08/30/20 Status: Acute Assessment and plan: This is an 80-year-old lady presents with an odd smell with concerns for gas or smoke in her house with associated headache most likely a migraine headache with olfactory aura. She has had migraine with visual auras in the past. She was brought to the ED for evaluation with vague symptoms associated with this headache and not feeling well for several days prior. He was found to have an elevated troponin with a history of aortic stenosis and use of nitroglycerin probable angina. She does have a history of right-sided CHF. Her BNP was normal. She does need an updated echocardiogram which was scheduled in near future. After consultation with [facility] cardiology it was thought best to keep the patient in observation to update her electrocardiogram and trend her troponins with her recent symptoms though there were no overt exertional symptoms. She is a DNR/DNI. (2) Aortic stenosis: Status: Chronic Assessment and plan: Update echocardiogram and trend troponins with eleva do troponins and vague symptoms recently. Consider local cardiology consultation. Qualifiers: Cardiac valve disease etiology: nonrheumatic Qualified Code(s): I35.0 - Nonrheumatic aortic (valve) stenosis (3) Migraine headache with aura: Start date: 08/30/20 Status: Acute Assessment and plan: Patient had neurological symptoms consistent with migraine headache and olfactory aura though usually she has visual auras. This has resolved. Imaging was negative for any acute CVA by CT but if persistent symptoms consider MRI of the brain. Observation for now. Qualifiers: Status migrainosus presence: without status migrainosus Intractability: not intractable Qualified Code(s): G43.109 - Migraine with aura, not intractable, without status migrainosus History of Present Illness History of Present Illness Chief Complaint: Strange smell and headache. Narrative: This is an 80-year-old female patient who has had several days of feeling more tired and weak than her normal baseline. She has a history of and denies any exertional chest pain or dyspnea. She did have a sudden onset of an odd smell in the house associated with a headache which was similar to her previous migraines which she did have visual auras. She also had associated nausea. She reported to the ED physician that she felt slightly dizzy and unsteady as if the room was moving. She had no true vertigo. She called EMS because of the smell worried about gas leaks or fire and she was brought to the ED for evaluation. She has had no recent respiratory infections or exposure to COVID-19 and has had her vaccine. At the time I saw the patient she had no headache or respiratory symptoms and no cardiovascular symptoms. In the ED she had a CT of the head which was negative for acute changes but her lab revealed an elevated troponin. With her significant which is due point updated ultr asound she was admitted for observation and trending of troponins. [facility] cardiology was consulted in the ED and advised this treatment plan. Pertinent review of systems negative for any other neurological symptoms the patient has had no recent trauma. He does have a history of CVA. As stated she has a history of migraines but usually with visual auras. Review of Systems Narrative: 13 point review of systems otherwise unrevealing or stable. Patient does have a history of right-sided CHF and does have nitroglycerin to take for chest pain but has not had recent chest pain. ON LICENSE OF [facility] Medical History (Updated 08/30/20 @ 07:20 by Garcia Cason) Anemia Anxiety Aortic dilatation Aortic stenosis Balance problem Bicuspid aortic valve Bipolar disorder Carpal tunnel syndrome, bilateral Cervicalgia Chronic diarrhea CVA (cerebral vascular accident) (~1999) Diastolic CHF Diastolic dysfunction Diverticulosis of colon Dizziness Dysphagia Exercise induced bronchospasm Fatigue Fibromyalgia Frequent headaches GERD (gastroesophageal reflux disease) Helicobacter pylori (H. pylori) infection Hyperlipidemia Hypertension Left leg numbness Memory deficit Murmur Myalgia and myositis SHIELA treated with BiPAP Palliative care patient Post traumatic stress disorder Reactive depression (situational) Schizoaffective disorder Seasonal affective disorder Skin tag Sleep apnea Tinnitus Unintentional weight loss Surgical History History of hip replacement Hx of tonsillectomy S/P cholecystectomy (~2001) Family History Mother Bipolar 1 disorder, mixed Heart disease Alcohol abuse Son Alcohol abuse Heart disease Bipolar 1 disorder, mixed Son No problems noted. Son No problems noted. Daughter No problems noted. 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 Pets and animals: No Current gender identity: female What is your relationship status?: How often do you talk on the phone with friends or family?: twice per week How often do you get together with friends or relatives?: once per week How often do you attend mu-ism or anglican services?: 1-3 times per year Panel score (0-1 are the most socially isolated patients): 2 What type of physical activity do you participate in: none and sedentary lifestyle Xochitl/Mosque: Protestant Special xochilt needs: No Seatbelt use: always Water heater temp set <120 deg: Yes Working smoke detector in home: Yes Fire extinguisher in home: Yes Do you feel safe at home: Yes Do you feel safe in your relationship?: Yes Additional Social history: Happily to since 1959. Grew up next door to each other in [place], [place]. Lots of financial stress. Run out of money every month, even with combined SS. Lives in [address] 8 housing. 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 Has a vehicle; only excess needs one. Meds Home Medications and Allergies Allergies Allergy/AdvReac Type Severity Reaction Status Date / Time lisinopril Allergy Severe Throat Unverified 08/30/20 02:55 Sweilling aripiprazole [From Abilify] Allergy Intermediate Unverified 08/30/20 02:55 latex Allergy Intermediate Topical Unverified 08/30/20 02:55 Irritation amitriptyline AdvReac Intermediate Burning Unverified 08/30/20 02:55 Sensation pregabalin AdvReac Mild Visual Unverified 08/30/20 02:55 Disturbances hydrochlorothiazide AdvReac Unknown Unknown Unverified 08/30/20 02:55 Environmental Allergy Intermediate Rhinitis Uncoded 08/30/20 02:55 adhesive bandages AdvReac Intermediate Itching, Uncoded 08/30/20 02:55 Skinn Irritation Home Medications Medication Instructions Recorded Confirmed Type acetaminophen [Tylenol] 500 mg PO PRN tab-cap 11/30/12 08/30/20 History albuterol sulfate [Ventolin HFA] 2 puff INHALATION Q6H PRN puff 11/30/12 08/30/20 History aspirin [Aspirin Low-Strength] 81 mg PO DAILY tab-cap 11/30/12 08/30/20 History cholecalciferol (vitamin D3) 1,000 unit IU DAILY tab.chew 11/30/12 08/30/20 History clotrimazole 45 gm TOPICAL BID script 11/30/12 08/30/20 History multivitamin 1 ea PO DAILY 11/30/12 08/30/20 History nitroglycerin [Nitrostat] 0.4 mg SUBLINGUAL DIRECTED 11/30/12 04/04/20 History omega-3 fatty acids-fish oil 1 ea PO DAILY 11/30/12 08/30/20 History cyanocobalamin (vitamin B-12) 1,000 mcg PO DAILY 11/19/13 08/30/20 History [Vitamin B-12] quetiapine [Seroquel XR] 50 mg PO .Q5PM 11/08/15 08/30/20 History quetiapine [Seroquel XR] 200 mg PO .Q5PM 11/08/15 08/30/20 History simvastatin 10 mg PO QPM 12/25/17 08/30/20 History amlodipine 10 mg tablet 15 mg PO DAILY tab 07/15/18 08/30/20 History spironolactone 25 mg tablet 12.5 mg PO DAILY #30 tab 11/18/18 08/30/20 Rx N-acetyl cysteine PO DAILY 04/09/19 04/04/20 History ropinirole 1 mg tablet 3 mg PO 5 PM tab-cap 04/09/19 08/30/20 History gabapentin 300 mg capsule 600 mg PO .COMPLEX cap 04/13/19 08/30/20 History pantoprazole 40 mg tablet,delayed 20 mg PO DAILY tab 04/13/19 08/30/20 History release Exam Narrative Exam Narrative: General: Patient appears appropriate for age, alert and oriented x3 and in no acute distress. She is moderately obese. HEENT: Normocephalic, eyes with pupils equal and reactive to light symmetrically, extraocular movement intact and sclera anicteric. Oropharynx with moist mucosa. Neck: Supple without JVD. Back: Stooped posture with no CVA tenderness, slight kyphosis over upper back. Lungs: Clear to auscultation and percussion. Breast: Exam deferred. Heart: Regular rate and rhythm with 4/6 crescendo systolic murmur over left sternal border, no rubs or gallops. Abdomen: Obese contour, soft and nontender to palpation with no palpable hepatosplenomegaly. Bowel sounds positive in all quadrants. Extremities: Nonpitting edema more on the left than the right lower extremity with good capillary refill, well-healed surgical scars over both hips status pos t bilateral MADISYN. No clubbing or cyanosis. Joints have osteoarthritic changes with fair range of motion. Skin: Normal color, warm and dry. Neuro: cranial nerves II through XII grossly intact, no focalizing motor deficits. Psych: Normal mood and affect, no abnormal thought processes. Remote and recent memory grossly intact. Results Imaging Imaging Studies: Exam: CT Head Without Contrast Exam date and time: 08/30/2020 3:23 AM Age: 80 years old Clinical indication: Dizziness and other: General weakness; Patient HX: Headache, dizziness, weakness, smells burning odor COMPARISON: CT HEAD WO 02/11/2019 4:27 PM FINDINGS: Brain: No acute intracranial hemorrhage, mass-effect, midline shift, or extra-axial collection is seen. The alexis white matter differentiation appears preserved. Cerebral ventricles: The ventricular system and basilar cisterns appear appropriate in size and configuration. Bones/joints: The bony calvarium appears intact. No depressed skull fracture is seen. There is marked degeneration of the right temporomandibular joint. Paranasal sinuses: The visualized paranasal sinuses appear well-aerated. Mastoid air cells: The mastoid air cells appear well-aerated. Auditory system: The middle ear cavities appear clear. Soft tissue density material within the right external auditory canal probably represents cerumen; however, direct inspection is recommended for definitive evaluation. Orbital cavity: The globes and intraorbital structures appear grossly intact. Vasculature: There is atherosclerotic calcification within the intracranial portion of the internal carotid and vertebral arteries bilaterally. Soft tissues: No significant scalp lesion is seen. IMPRESSION: 1. No acute intracranial abnormality seen. 2. Marked degeneration of the right TMJ. ASSESSMENT: ASPECTS ([place] Stroke Program Early CT Score) is 10. Dictated and Authenticated by: Jeffrey Alfonso MD. Exam: XR Chest Exam date and time: 08/30/2020 3:38 AM Age: 80 years old Clinical indication: Abnormal findings; Abnormal diagnostic tests; Other: Elevated troponin; Other: Weakness TECHNIQUE: Imaging protocol: XR of the chest Views: 1 view. COMPARISON: CR XR CHEST 2V PA LATERAL 02/11/2019 4:17 PM FINDINGS: Lungs: There is diffuse coarsening of interstitial pulmonary markings as seen previously. No pulmonary consolidation is demonstrated. Pleural spaces: No pleural effusion or pneumothorax is demonstrated. Heart/Mediastinum: Heart size is normal. Cardiac monitoring leads overlie the exam. Bones/joints: There is resorption of the distal right clavicle, also seen on the comparison exam from February 11, 2019. Otherwise, the visualized bony structures appear grossly intact, as seen. IMPRESSION: No active disease is seen in the chest. Dictated and Authenticated by: Jeffrey Alfonso MD. Labs Result diagrams: 08/30/20 02:52 08/30/20 02:52 Labs: Laboratory Results - last 24 hr 08/30/20 08/30/20 08/30/20 02:52 02:52 02:52 WBC 7.43 RBC 4.38 Hgb 13.6 Hct 41.6 MCV 95.0 MCH 31.1 MCHC 32.7 RDW 12.0 Plt Count 272 MPV 10.1 Immature Gran % 0.3 Neutrophils % 64.4 Lymphocytes % 24.1 Monocytes % 7.7 Eosinophils % 3.1 Basophils % 0.4 Nucleated RBC % 0 Absolute Neutrophils 4.79 Absolute Lymphocytes 1.79 Absolute Monocytes 0.57 Absolute Eosinophils 0.23 Absolute Basophils 0.03 PT 10.4 INR 1.0 APTT 25.0 Carboxyhemoglobin % Sodium 140 Potassium 3.9 Chloride 101 Carbon Dioxide 33.2 H Anion Gap 5.8 BUN 26 H Creatinine 0.9 Estimated GFR/1.73 m2 >= 60.00 Glucose 112 H Calcium 8.7 Magnesium 2.0 Total Bilirubin 0.4 Conjugated Bilirubin 0.1 AST 15 ALT 22 Alkaline Phosphatase 108 Troponin I 0.38 H* NT-Pro-B Natriuret Pep 191 Total Protein 7.4 Albumin 3.8 Urine Color Urine Clarity Urine pH Ur Specific Spencer Urine Protein Urine Ketones Urine Blood Urine Nitrite Urine Bilirubin Urine Urobilinogen Ur Leukocyte Esterase Urine Glucose COVID-19 Source 08/30/20 08/30/20 08/30/20 02:52 03:11 03:27 WBC RBC Hgb Hct MCV MCH MCHC RDW Plt Count MPV Immature Gran % Neutrophils % Lymphocytes % Monocytes % Eosinophils % Basophils % Nucleated RBC % Absolute Neutrophils Absolute Lymphocytes Absolute Monocytes Absolute Eosinophils Absolute Basophils PT INR APTT Carboxyhemoglobin % 1.4 Sodium Potassium Chloride Carbon Dioxide Anion Gap BUN Creatinine Estimated GFR/1.73 m2 Glucose Calcium Magnesium Total Bilirubin Conjugated Bilirubin AST ALT Alkaline Phosphatase Troponin I Cancelled NT-Pro-B Natriuret Pep Total Protein Albumin Urine Color Yellow Urine Clarity Clear Urine pH 7.0 Ur Specific Spencer 1.020 Urine Protein Negative Urine Ketones Negative Urine Blood Negative Urine Nitrite Negative Urine Bilirubin Negative Urine Urobilinogen 0.2 Ur Leukocyte Esterase Negative Urine Glucose Negative COVID-19 Source 08/30/20 03:40 WBC RBC Hgb Hct MCV MCH MCHC RDW Plt Count MPV Immature Gran % Neutrophils % Lymphocytes % Monocytes % Eosinophils % Basophils % Nucleated RBC % Absolute Neutrophils Absolute Lymphocytes Absolute Monocytes Absolute Eosinophils Absolute Basophils PT INR APTT Carboxyhemoglobin % Sodium Potassium Chloride Carbon Dioxide Anion Gap BUN Creatinine Estimated GFR/1.73 m2 Glucose Calcium Magnesium Total Bilirubin Conjugated Bilirubin AST ALT Alkaline Phosphatase Troponin I NT-Pro-B Natriuret Pep Total Protein Albumin Urine Color Urine Clarity Urine pH Ur Specific Spencer Urine Protein Urine Ketones Urine Blood Urine Nitrite Urine Bilirubin Urine Urobilinogen Ur Leukocyte Esterase Urine Glucose COVID-19 Source Nasopharyx Last Vital Signs Temp 36.6 C 08/30/20 05:23 Pulse 72 08/30/20 05:23 Resp 16 08/30/20 05:23 BP 152/96 H 08/30/20 05:23 Pulse Ox 95 08/30/20 05:23 COVID-19 Screening Have you, or household traveled for leisure in last 14 days?: No Had IN PERSON contact w/suspected or confirmed C-19 person: No
[2020-08-30] MEDS: Spironolactone 25 MG TAB 12.5 MG PO (08:29)
[2020-08-30] MEDS: Gabapentin 600 MG TAB PO ×2 (08:29→11:55)
[2020-08-30] MEDS: Pantoprazole 20 MG TABCR PO (08:29)
[2020-08-30] MEDS: Aspirin 81 MG CHEW PO (08:30)
[2020-08-30] MEDS: Heparin 5,000 UNITS/ML VIAL 5000 UNITS SC ×2 (08:30→17:05)
[2020-08-30] MEDS: amLODIPine 10 MG TAB 15 MG PO (08:30)
[2020-08-30 10:11] LABS: COVID-19 PCR Negative (Negative)
--- NOTE | 2020-08-30 10:22 | PDOC.CMIN ---
- If Service Date Differs Date of service: 08/30/20 Time of Service: 17:06 Care Management Initial Assess REASON FOR HOSPITALIZATION:: Lightheaded, Elevated troponin, change in smell PAST MEDICAL HISTORY/PAST SURGICAL HISTORY:: Anemia (Chronic). Anxiety (Chronic). Aortic dilatation (Acute). Aortic stenosis (Chronic). Balance problem (Acute). Bicuspid aortic valve (Acute). Bipolar disorder (Acute). Carpal tunnel syndrome, bilateral (Acute). Cervicalgia (Acute). Chronic diarrhea (Acute). CVA (cerebral vascular accident) (Chronic ~1999). Diastolic CHF (Acute). Diastolic dysfunction (Acute). Diverticulosis of colon (Acute). Dizziness (Acute). Dysphagia (Acute). Exercise induced bronchospasm (Acute). Fatigue (Acute). Fibromyalgia (Acute). Frequent headaches (Acute). GERD (gastroesophageal reflux disease) (Chronic). Helicobacter pylori (H. pylori) infection (Acute). Hyperlipidemia (Acute). Hypertension (Chronic). Left leg numbness (Acute). Memory deficit (Acute). Murmur (Acute). Myalgia and myositis (Acute). SHIELA treated with BiPAP (Acute). Palliative care patient (Acute). Post traumatic stress disorder (Acute). Reactive depression (situational) (Acute). Schizoaffective disorder (Acute). Seasonal affective disorder (Acute). Skin tag (Acute). Sleep apnea (Acute). Tinnitus (Acute). Unintentional weight loss (Acute). History of hip replacement (Chronic). Hx of tonsillectomy (Chronic). S/P cholecystectomy (Acute ~2001) PREVIOUS FUNCTIONAL STATUS/SOCIAL/FAMILY SUPPORTS:: Maite resides in [facility] with her of 61 years, Jesus. 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 The couple has four children; three sons and a daughter; Raquel as well as grandchildren. They struggle financially to make ends meet and experience food insecurity. The couple previously attended spirtual services at [facility]. Rosalie requires some support with ambulation, but otherwise, the couple is independent at baseline in the community. CURRENT FUNCTIONAL STATUS:: Maite was lying in bed with a washcloth over her eyes. CM will [place] pass back when Maite is more open to discussion. Her CM from [facility]; Geeta called to check in and offer support as needed. ADVANCE DIRECTIVES:: None on file at [facility]. Has patient been provided with info about the portal/API?: Yes Did the patient sign up for the portal?: Yes (Previously ) CODE STATUS:: DNR/DNI INSURANCE COVERAGE / FINANCIAL ISSUES:: Medicare CURRENT HOME/COMMUNITY SERVICES/EQUIPMENT:: Grab bars, CPAP, Section 8 housing, [facility] PRIMARY CARE PHYSICIAN:: Ijeoma Cruz POTENTIAL DISCHARGE NEEDS:: Review community based supports; outpatient follow up plan. PT/OT consults. PATIENT/FAMILY EDUCATION NEEDS:: Review discharge instructions, discuss Ask Me Three. ANTICIPATED BARRIERS TO DISCHARGE:: None identified. TRANSPORTATION:: Via private vehicle with family. PLAN:: Maite continues to be monitored and evaluated. Troponins are being trended, awaiting ECHO. CM to request PT/OT evaluations when appropriate. Anticipate Maite will return home with outpatient follow up plan and transport via private vehicle with her , Jesus.
[2020-08-30 13:31] LABS: Troponin I 0.25 ng/mL (<0.06)
[2020-08-30 14:22] LABS: Bilirubin Negative (Negative); Blood Negative (Negative); Clarity Clear (Clear); Glucose Negative (Negative); Ketones Negative (Negative); Leukocyte Esterase Small (Negative); Nitrite Negative (Negative); Specific Gravity 1.015 (1.005-1.025); Urobilinogen 0.2 EU/dL (Up TO 0.2); pH 7.5 (5-8)
[2020-08-30] MEDS: Acetaminophen 325 MG TAB 650 MG PO (14:29)
[2020-08-30 14:39] LABS: Bacteria Rare HPF (Negative); C & S Indicated? Yes; Casts Negative LPF (Negative); Crystals Negative HPF (Negative); Epithelial Cells Few HPF (Negative); Mucus Negative (Negative); Other Cells Rare Renal (Negative); RBC 0-2 HPF (0-2)
--- NOTE | 2020-08-30 15:30 | CHAPLAIN ---
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 She is resting in bed with the curtains down, and tells me about her headaches and strange smells that are affecting her. She says her body doesn't feel right. She and her belonged to the [facility] for many years, but found the anabaptism leadership and others to be judgmental. Maite and her have since been involved in [employer] and practice [employer] along with believing in God. Maite said she has been receiving good care and has been in touch with her by phone.
[2020-08-30] MEDS: rOPINIRole 1 MG TAB 3 MG PO (17:04)
[2020-08-30] MEDS: Simvastatin 10 MG TAB PO (20:08)
[2020-08-30] MEDS: Normal Saline Flush 10 ML SYR IVP (20:08)
[2020-08-31] MEDS: Heparin 5,000 UNITS/ML VIAL 5000 UNITS SC ×2 (00:27→08:58)
[2020-08-31 00:30] VITALS: BP 131/70; PULSE 72; RESP 16; TEMP 36.8; O2SAT 92
[2020-08-31 04:00] VITALS: BP 120/72; PULSE 73; RESP 18; TEMP 36.8; O2SAT 95
[2020-08-31 06:52] LABS: Absolute Basophil Count 0.03 10^3/uL (0.0-0.2); Absolute Eosinophil Count 0.18 10^3/uL (0.0-0.7); Absolute Lymphocyte Count 1.69 10^3/uL (1.2-3.4); Absolute Monocyte Count 0.41 10^3/uL (0.1-0.8); Absolute Neutrophil Count 2.75 10^3/uL (1.2-6.7); Basophils % 0.6; Eosinophils % 3.6; HCT 39.2 % (36.0-46.0); HGB 12.7 g/dL (11.2-15.7); Lymphocytes % 33.4; MCH 31.1 pg (27.0-33.0); MCHC 32.4 % (32.0-36.0); MCV 95.8 fL (80-95); MPV 10.2 fL (8.0-11.0); Monocytes % 8.1; Neutrophils % 54.3; Nucleated RBC 0 %; Platelet Count 252 10^3/uL (130-400); RBC 4.09 10^6/uL (3.93-5.22); RDW 12.2 % (11.7-14.6); RDW-SD 42.8 fL; WBC 5.06 10^3/uL (4.4-10.8)
[2020-08-31 07:00] VITALS: PULSE 73
[2020-08-31 08:05] VITALS: BP 126/65; PULSE 78; RESP 18; TEMP 36.7; O2SAT 91
[2020-08-31] MEDS: Gabapentin 600 MG TAB PO (08:59)
[2020-08-31] MEDS: Pantoprazole 20 MG TABCR PO (08:59)
[2020-08-31] MEDS: Aspirin 81 MG CHEW PO (08:59)
[2020-08-31] MEDS: Normal Saline Flush 10 ML SYR IVP (08:59)
[2020-08-31] MEDS: amLODIPine 10 MG TAB 15 MG PO (08:59)
[2020-08-31] MEDS: Spironolactone 25 MG TAB 12.5 MG PO (09:00)
--- NOTE | 2020-08-31 10:30 | PDOC.CMDIS ---
LACE Index Scoring Tool - Questions: Length of Stay (in days): 1 Acuity (Admit via E.D.?): Yes Comorbidities: Congestive Heart Failure E.D. Visits: 1 - Answers: Total Score: 7 Risk of Readmission: Low Risk Care Management Discharge Reason for Hospitalization: Lightheaded, Elevated troponin, change in smell Discharge Plan: Maite will return home when ready per MD. She will follow up with her PCP and plan of care as prescribed. She will resume prior outpatient supports including [facility] [employer] program. She will transport via private vehicle with family. Patient/Family Education Needs: Review discharge instructions, discuss Ask Me Three. - MH Services (Omit if N/A) Current MH Services: Internal [facility] ([employer])
--- NOTE | 2020-08-31 10:40 | DSE_ITS ---
Date of service: 08/31/20 Time of Service: 10:40 DS: Diagnosis Discharge Diagnosis (1) Elevated troponin: Status: Acute (2) Aortic stenosis: Status: Chronic (3) Migraine headache with aura: Status: Acute Discharge Plan Disposition Patient Disposition: HOME Condition: Good Discharge Details Reason For Visit: , ELEVATED TROPONIN, MIGRAINE WITH OLFACTORY AUR Admit Date/Time: 08/30/20 04:24 Admit Provider: Garcia Cason Attending Provider: Garcia Cason Primary Care Provider: Ijeoma Cruz V Hospital Course Hospital Course: This is an 80-year-old female patient who has had several days of feeling more tired and weak than her normal baseline. She has a history of and denies any exertional chest pain or dyspnea. She did have a sudden onset of an odd smell in the house associated with a headache which was similar to her previous henry yong which she did have visual auras. She also had associated nausea. She reported to the ED physician that she felt slightly dizzy and unsteady as if the room was moving. She had no true vertigo. She called EMS because of the smell worried about gas leaks or fire and she was brought to the ED for evaluation. She has had no recent respiratory infections or exposure to COVID-19 and has had her vaccine. At the time I saw the patient she had no headache or respiratory symptoms and no cardiovascular symptoms. In the ED she had a CT of the head which was negative for acute changes but her lab revealed an elevated troponin. With her significant which is due point updated ultrasound she was admitted for observation and trending of troponins. [facility] [place] was consulted in the ED and advised this treatment plan. Pertinent review of systems negative for any other neurological symptoms the patient has had no recent trauma. She does have a history of CVA. As stated she has a history of migraines but usually with visual auras. Her initial troponin was 0.38, repeat was 0.25. Echocardiogram showed no segmental wall motion abnormalities with an EF of 60%. The aortic valve was not well visualized; mean gradient across the aortic valve was 22 mmHg. She will d/c with PCP follow up in 1-2 weeks. Resume normal home medications. Home Meds and New Rx's Prescriptions: Continued N-acetyl cysteine capsule PO DAILY RF: 0 amlodipine [Norvasc] 10 mg tablet 15 mg PO DAILY RF: 0 spironolactone 25 mg tablet 12.5 mg PO DAILY Qty: 30 RF: 5 multivitamin 1 EACH tablet 1 ea PO DAILY RF: 0 acetaminophen [Tylenol] 325 MG tablet 500 mg PO PRN RF: 0 nitroglycerin [Nitrostat] 0.4 MG tablet, sublingual 0.4 mg Sublingual DIRECTED RF: 0 aspirin [Aspirin Low-Strength] 81 MG tablet,chewable 81 mg PO DAILY RF: 0 albuterol sulfate [Ventolin HFA] 8 GM HFA aerosol inhaler 2 puff Inhalation Q6H PRN RF: 0 clotrimazole 45 GM cream 45 gm Topical BID RF: 0 omega-3 fatty acids-fish oil 1 EACH capsule 1 ea PO DAILY RF: 0 cholecalciferol (vitamin D3) 400 UNIT tablet,chewable 1,000 unit IU DAILY RF: 0 ropinirole 1 mg tablet 3 mg PO 5 PM RF: 0 cyanocobalamin (vitamin B-12) [Vitamin B-12] 1,000 MCG tablet 1,000 mcg PO DAILY RF: 0 gabapentin 300 mg capsule 600 mg PO .COMPLEX RF: 0 quetiapine [Seroquel XR] 200 MG tablet extended release 24 hr 200 mg PO .Q5PM RF: 0 quetiapine [Seroquel XR] 50 MG tablet extended release 24 hr 50 mg PO .Q5PM RF: 0 simvastatin 10 MG tablet 10 mg PO QPM RF: 0 pantoprazole 40 mg tablet,delayed release (DR/EC) 20 mg PO DAILY RF: 0 Discharge Instructions Instructions: Acute Headache (DC) Stand Alone Forms: Nursing Discharge Form Referrals: Ijeoma Cruz MD [Primary Care Provider] - 09/01/20 8:45 am (appt was already made tomorrow, call if you would like to reschedule, if so make in one to two weeks) Activity:: Activity as Tolerated Equipment/Supplies:: No Equipment Needed Diet:: Low Sodium Discharge Orders Discharge Orders: Discharge Order (Routine); Ordered 08/31/20 Ordered By: Taiwo Ulloa DS: Summary Time Spent with Patient providing and/or coordinating discharge services: Greater than 30 minutes Status at Discharge Functional status at discharge: independent ambulation Overall status at discharge: patient is back to baseline Mental Status: mental status grossly normal Speech and Movement: speech and movement normal Mood: congruent mood Affect: normal affect Exam Narrative Exam Narrative: Lying in dark room with dark tinted glasses on. No headache; avoids bright lights as a preventative migrain measure. Const General: cooperative and no acute distress Nutritional Appearance: average body habitus Orientation: alert and oriented x3 Resp Effort & Inspection: normal respiratory effort Auscultation: clear to auscultation bilaterally Cardio Jugular venous pressure: no JVD Rate: regular rate Rhythm: regular rhythm Heart Sounds: S1 normal and S2 normal GI Palpation: soft and nontender Neuro General: patient alert, patient oriented x3 and no focal motor deficits Extrem General: no pedal edema and no calf tenderness Psych Mental Status: mental status grossly normal Speech and Movement: speech and movement normal Mood: congruent mood Affect: normal affect DS: Data Vitals/I&O Vitals and I&O: Vital Signs Temperature 36.7 C 08/31/20 08:05 Temperature Source Tympanic 08/31/20 08:05 Pulse 78 08/31/20 08:05 Pulse Rhythm Regular 08/31/20 00:30 Pulse 73 08/30/20 04:50 Respiratory Rate 18 08/31/20 08:05 Respiratory Effort Non-Labored 08/31/20 00:30 Respiratory Depth Normal 08/31/20 00:30 Respiratory Pattern Normal 08/31/20 00:30 Blood Pressure 126/65 08/31/20 08:05 Blood Pressure Mean 74 08/30/20 04:31 Blood Pressure Position Supine 08/30/20 02:45 Pulse Oximetry 91 L 08/31/20 08:05 Oxygen Delivery Method Room Air 08/31/20 08:05 Oxygen Flow Rate 0 08/31/20 08:05 Pain Level 0 08/31/20 04:00 Intake & Output 08/30/20 08/30/20 08/31/20 11:59 23:59 11:59 Intake Total 125 / 855 730 / 855 240 / 240 Output Total 1999 / 1999 1000 / 1000 Balance -275 / -1145 -870 / -1145 -760 / -760 Weight 71 kg 71 kg Intake: IV Oral 125 / 845 720 / 845 240 / 240 Output: Urine 1999 / 1999 1000 / 1000 Other: Urine Color Yellow Yellow Yellow Urine Appearance Clear Clear Urine Odor Strong Stool Size Moderate Stool Characteristics Soft Formed Brown Voiding Methods Toilet Toilet Toilet Data Completed and Pending Labs on day of discharge: Labs from last 24 hours 08/31/20 08/30/20 08/30/20 06:30 13:38 12:45 WBC 5.06 D RBC 4.09 Hgb 12.7 Hct 39.2 MCV 95.8 H MCH 31.1 MCHC 32.4 RDW 12.2 Plt Count 252 MPV 10.2 Immature Gran % 0.0 Neutrophils % 54.3 Lymphocytes % 33.4 Monocytes % 8.1 Eosinophils % 3.6 Basophils % 0.6 Nucleated RBC % 0 Absolute Neutrophils 2.75 Absolute Lymphocytes 1.69 Absolute Monocytes 0.41 Absolute Eosinophils 0.18 Absolute Basophils 0.03 Troponin I 0.25 H* TSH Urine Color Yellow Urine Clarity Clear Urine pH 7.5 Ur Specific [place] 1.015 Urine Protein Negative Urine Ketones Negative Urine Blood Negative Urine Nitrite Negative Urine Bilirubin Negative Urine Urobilinogen 0.2 Ur Leukocyte Esterase Small H Urine RBC 0-2 Urine WBC 3-5 Ur Epithelial Cells Few Urine Crystals Negative Urine Bacteria Rare Urine Casts Negative Urine Mucus Negative Urine Other Rare renal Ur Culture Indicated? Yes Urine Glucose Negative 08/30/20 12:45 WBC RBC Hgb Hct MCV MCH MCHC RDW Plt Count MPV Immature Gran % Neutrophils % Lymphocytes % Monocytes % Eosinophils % Basophils % Nucleated RBC % Absolute Neutrophils Absolute Lymphocytes Absolute Monocytes Absolute Eosinophils Absolute Basophils Troponin I TSH 2.90 Urine Color Urine Clarity Urine pH Ur Specific [place] Urine Protein Urine Ketones Urine Blood Urine Nitrite Urine Bilirubin Urine Urobilinogen Ur Leukocyte Esterase Urine RBC Urine WBC Ur Epithelial Cells Urine Crystals Urine Bacteria Urine Casts Urine Mucus Urine Other Ur Culture Indicated? Urine Glucose 08/30/20 13:38 Urine - Reflex from Urine Culture - Pending Preliminary micro results at discharge 08/30/20 13:38 Urine Culture - Pending Urine - Reflex from [facility] Medical History Anemia Anxiety Aortic dilatation Aortic stenosis Balance problem Bicuspid aortic valve Bipolar disorder Carpal tunnel syndrome, bilateral Cervicalgia Chronic diarrhea CVA (cerebral vascular accident) (~1999) Diastolic CHF Diastolic dysfunction Diverticulosis of colon Dizziness Dysphagia Exercise induced bronchospasm Fatigue Fibromyalgia Frequent headaches GERD (gastroesophageal reflux disease) Helicobacter pylori (H. pylori) infection Hyperlipidemia Hypertension Left leg numbness Memory deficit Murmur Myalgia and myositis SHIELA treated with BiPAP Palliative care patient Post traumatic stress disorder Reactive depression (situational) Schizoaffective disorder Seasonal affective disorder Skin tag Sleep apnea Tinnitus Unintentional weight loss Surgical History History of hip replacement Hx of tonsillectomy S/P cholecystectomy (~2001) Family History Mother Bipolar 1 disorder, mixed Heart disease Alcohol abuse Son Alcohol abuse Heart disease Bipolar 1 disorder, mixed Son No problems noted. Son No problems noted. Daughter No problems noted. 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 Pets and animals: No Current gender identity: female What is your relationship status?: How often do you talk on the phone with friends or family?: twice per week How often do you get together with friends or relatives?: once per week How often do you attend cheondoism or anabaptist services?: 1-3 times per year Panel score (0-1 are the most socially isolated patients): 2 What type of physical activity do you participate in: none and sedentary lifestyle Xochitl/Hinduism: Temple Special xochitl needs: No Seatbelt use: always Water heater temp set <120 deg: Yes Working smoke detector in home: Yes Fire extinguisher in home: Yes Do you feel safe at home: Yes Do you feel safe in your relationship?: Yes Additional Social history: Happily to since 1959. Grew up next door to each other in [place], [place]. Lots of financial stress. Run out of money every month, even with combined SS. Lives in [address] housing. 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 Has a vehicle; only excess needs one.
[2020-08-31 11:12] VITALS: BP 119/61; PULSE 72; RESP 18; TEMP 36.8; O2SAT 94
--- NOTE | 2020-08-31 14:31 | CHAPLAIN ---
Maite requested a visit. We met yesterday as well. 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 Today she asked to talk about her fear of not being strong enough in a apocalyptic time to deal with a devil or something that might represent a devil, if she were tempted, especially if it meant protecting her kids, or others. We talked about Maite's stephie in God, her relationship with God and all she as done so help others, which covers the two main tenants of God's expectations for us. Maite shared some personal experiences that indicated she has a great deal of strength when she knows what she needs to do. Maite's Jesus, was admitted after she was and they're both being discharged today.
== END 2020-08-31 14:02 | disposition home or self-care (01) ==
LOC: ER 05:03 → MS 05:18
PROVIDERS: Admitting Provider Family Medicine; Emergency Provider Emergency Medicine; PCP Family Medicine; Visit Provider Family Medicine
DX: R77.8 Other specified abnormalities of plasma proteins (principal); I35.0 Nonrheumatic aortic (valve) stenosis; G43.109 Migraine with aura, not intractable, without status migrainosus; D64.9 Anemia, unspecified; F41.9 Anxiety disorder, unspecified; I11.0 Hypertensive heart disease with heart failure; I50.30 Unspecified diastolic (congestive) heart failure; Z86.73 Personal history of transient ischemic attack (TIA), and cerebral infarction without residual deficits; K57.30 Diverticulosis of large intestine without perforation or abscess without bleeding; G47.33 Obstructive sleep apnea (adult) (pediatric); M79.7 Fibromyalgia
CPT/HCPCS: 36415; 80053; 82375; 87635; 93005; 99217; 99220; 99285; 70450; 71045; 81003; 81015; 82248; 83735; 83880; 84443; 84484; 85025; 85610; 85730; 87086; 93010; 93306; G0378; J1644; J3490

== ENCOUNTER 2020-09-01 14:57 | Outpatient (REF) | payer MEDICARE, SELFPAY ==
[2020-09-01 16:46] LABS: Hemoglobin A1C 5.7 % (<5.7)
[2020-09-01 17:02] LABS: Calculated LDL 149 mg/dL (<100); Cholesterol 225 mg/dL (<200); HDL Cholesterol 51 mg/dL (40-60); Triglyceride 128 mg/dL (<150)
== END 2020-09-01 14:58 | disposition home or self-care (01) ==
LOC: NCHCN 14:57
PROVIDERS: PCP Family Medicine; Visit Provider Family Medicine
DX: E78.5 Hyperlipidemia, unspecified (principal); R73.9 Hyperglycemia, unspecified
CPT/HCPCS: 80061; 83036

== ENCOUNTER → 2020-10-12 11:22 | Outpatient (BNVA) | payer MEDICARE, SELFPAY | PROVIDERS: PCP Family Medicine; Referring Provider Family Medicine; Visit Provider Internal Medicine Cardiovascular Disease | DX: I50.30 Unspecified diastolic (congestive) heart failure (principal); R77.8 Other specified abnormalities of plasma proteins; R01.1 Cardiac murmur, unspecified; I77.819 Aortic ectasia, unspecified site; I35.0 Nonrheumatic aortic (valve) stenosis; Z63.8 Other specified problems related to primary support group | CPT/HCPCS: 99214 ==

== ENCOUNTER 2021-01-12 12:54 | Observation (INO) | payer MEDICARE, SELFPAY ==
[2021-01-12] VITALS (76 sets, daily range): BP systolic 85–162; BP diastolic 59–122; PULSE 67–108; RESP 11–42; TEMP 36.5–37.1; O2SAT 88–97
--- NOTE | 2021-01-12 13:00 | RT.EKG_ITS ---
APPROVED REPORT Exam: Resting ECG Reason for Exam: chest pain Patient Location: E HR:84 bpm ECG Measurements Heart Rate 84 AXIS HI 164 P 20 QRSd 136 QRS -56 QT 403 T 103 QTc 476 Conclusion Sinus rhythm...normal P axis, V-rate 60- 99 LVH with secondary repolarization abnormality...multi-LVH criteria, abnrm ST-T ST elevation secondary to LVH...Multiple VCG criteria. Sinus. LBBB. No STEMI. No change from previous. I have reviewed and interpreted ECG and agree with software generated interpretation.
--- NOTE | 2021-01-12 13:15 | DI.RAD_ITS ---
Exam(s) XR CHEST 2V PA LATERAL EXAM: XR CHEST 2V PA LATERAL CLINICAL HISTORY: CP TECHNIQUE: 2D digital imaging was performed. COMPARISON: CR XR CHEST 2V PA LATERAL from 02/11/2019 FINDINGS: MEDIASTINUM: Normal. HEART: Normal. PULMONARY VASCULATURE: Normal. LUNGS: Clear. PLEURAL SPACE: No pleural effusion or pneumothorax. BONE:Within normal limits for the patient's age. OTHER FINDINGS:Normal. IMPRESSION: No acute pulmonary findings. DATA REPOSITORY: RADIATION DOSE DELIVERED:
--- NOTE | 2021-01-12 13:22 | W.ED.GENAD ---
Discharge Plan Disposition Condition: Good Discharge Details Chief Complaint: Chest Pain Admit Date/Time: 01/12/21 19:45 Admit Provider: Vidal Bhatia Attending Provider: Vidal Bhatia Primary Care Provider: Ijeoma Cruz V ED Provider: Nadine Howard Discharge Instructions Activity:: Activity as Tolerated Equipment/Supplies:: No Equipment Needed Diet:: Heart Healthy Discharge Orders Discharge Orders: Discharge Order (Routine); Ordered 01/13/21 Ordered By: Wendie Mims Discharge Data Discharge Date/Time-TO BE ENTERED AT DEPARTURE: 01/12/21 20:58 Medical Decision Making Patient is a pleasant 80-year-old female presenting today with chief complaint of chest pain. Past medical history is pertinent for atrial fibrillation, bipolar, aortic stenosis, NSTEMI, anxiety, aortic dilatation, aortic stenosis, bicuspid aortic valve, CVA, diastolic CHF, polymyalgia, GERD, hyperlipidemia, hypertension, PTSD, schizoaffective disorder. She described the pain as a brick sitting on my chest. States this radiates to the lateral side of her neck. No pain radiating into her back. She denies any GI upset. Reports that the discomfort began when she woke up approximately 30 minutes prior to arrival. Said that she was awake late last night after having a disagreement with her . She states that her has Alzheimer's and has been worsening. That she has had to hide the knives, car keys and medications for his own safety. Patient reports that she sublingual nitro with the onset of symptoms. States that she has had minimal change in her symptoms after this. She denies any chest pain currently. No shortness of breath. Is reporting feeling anxious. On exam, patient appears very anxious but not. She has a notable murmur consistent with her history of aortic stenosis. Lungs are clear. No lower extremity edema or calf tenderness. 1+ DP pulses, extremities. Primarily concern for ACS given patient's history. Also considered anxiety. Patient not having any shortness of breath, she is not tachycardic or hypoxic. I did not see indication to be concerned for pulmonary embolism, dissection. She does not have any pain with palpation although both musculoskeletal source could be contributing to this versus other. EKG was obtained and reviewed by Dr. Rodriguez. Patient was in sinus rhythm with rate 84. LVH is noted with repolarization abnormality. She recommends no change from previous. Last cardiology note dated 10/12/2020 shows unchanged moderate aortic stenosis. Dilated aortic root. Recommended repeat echo in 1 to 2 years. Hypertension was controlled with melatonin alone working. Patient reports she has not taken her morning medications as of yet. Patient is on aspirin atorvastatin with her history of stroke. Does note that after the patient's recent NSTEMI, she did not mention ischemic evaluation. An echo was obtained showing a normal EF without any wall nodding abnormalities. He did recommend a nuclear stress test. I do not see that stress testing has been completed as of yet. Discussed stress testing with patient. She reports that she did not have it completed secondary to stress at home. Patient received aspirin and 0.5 mg of Ativan. Continues to be asymptomatic. Anxiety minimally improved. Care management has been involved. Patient is under the management of stress. Currently, the patient is dealing with her needs having progressively worsening Alzheimer's at home. Question of safety in the home. Care management going to have [facility] human services check on the patient's and his current mental stability welfare. Their ethical thing to do with other services may be available to the patient and her to help during this difficult time. Reviewed recent note from admission. Patient was admitted for observation and trending of troponins after she was found to be elevated at 0.38. Patient reports that her pain in her left shoulder has began to increase. She states that her chest pain seems to still be at bay. This was initially linked together, and is concerned that this is a ACS equivalent and will will give another sublingual nitro. Patient reports no real change in her discomfort. Labs are reviewed. No leukocytosis. Stable H&H. Calcium low at 8.1, no other significant electrolyte abnormalities. Troponin is less than 0.05. We will plan for repeat given onset of symptoms. Patient is eating and comfortable in the department. Repeat troponin remains less than 0.05. I discussed the findings with the patient. Her heart score is 5 putting her in the moderate range. I feel that admission for continued observation and trending of troponins would be appropriate at this time. I also discussed with the patient that she will need to have a stress test as was directed by her speech language pathologist travel. However, given the days ago unlikely to occur during this admission. Patient I did discuss disposition at length. She would prefer admission. She is concerned that the struggle situation at home is likely to exacerbate her current condition. Consulted with Dr. Bhatia who agrees to admission for continued monitoring. Shravan anna ultimately need the stress test that had been previously recommended. Called patient's , Jesus [phone], at her request. HPI General Mode of arrival: EMS. Date/Time Provider Initiated Documentation: 01/12/21 13:01. Limitations to Documentation: no limitations. Information obtained by: patient, RN notes reviewed and old records reviewed. History of Present Illness 80 year old F presents to the emergency department with the chief complaint of chest pain, described as moderate, Quality is described as other (pressure), and is localized to the chest. Patient neck and extremity. Patient started experiencing this minute(s) (30) and it has been constant. No relieving factors improve symptom(s), No exacerbating factors reported . Patient notes denies cough, fever/chills, loss of appetite, nausea/vomiting, rash, shortness of breath and weakness. Patient did receive the following treatments prior to arrival, other (nitro) Related Data Home Medications Medication Instructions Recorded Confirmed acetaminophen [Tylenol] 500 mg PO PRN tab-cap 11/30/12 01/12/21 albuterol sulfate [Ventolin HFA] 2 puff INHALATION Q6H PRN puff 11/30/12 08/30/20 aspirin [Aspirin Low-Strength] 81 mg PO DAILY tab-cap 11/30/12 01/12/21 clotrimazole 45 gm TOPICAL BID script 11/30/12 01/12/21 multivitamin 1 ea PO DAILY 11/30/12 01/12/21 nitroglycerin [Nitrostat] 0.4 mg SUBLINGUAL DIRECTED 11/30/12 01/12/21 omega-3 fatty acids-fish oil 1 ea PO DAILY 11/30/12 01/12/21 cyanocobalamin (vitamin B-12) 1,000 mcg PO DAILY 11/19/13 01/12/21 [Vitamin B-12] quetiapine [Seroquel XR] 50 mg PO .Q5PM 11/08/15 01/13/21 quetiapine [Seroquel XR] 200 mg PO .Q5PM 11/08/15 01/12/21 simvastatin 10 mg PO QPM 12/25/17 01/12/21 amlodipine 10 mg tablet 15 mg PO DAILY tab 07/15/18 01/12/21 spironolactone 25 mg tablet 12.5 mg PO DAILY #30 tab 11/18/18 01/12/21 N-acetyl cysteine PO DAILY 04/09/19 04/04/20 ropinirole 1 mg tablet 3 mg PO 5 PM tab-cap 04/09/19 01/12/21 gabapentin 300 mg capsule 600 mg PO .COMPLEX cap 04/13/19 01/12/21 pantoprazole 40 mg tablet,delayed 20 mg PO DAILY tab 04/13/19 01/12/21 release cholecalciferol (vitamin D3) 10 1,000 unit PO DAILY tab.chew 10/12/20 01/12/21 mcg (400 unit) chewable tablet alprazolam 0.25 mg PO BID PRN PRN #20 tab 01/13/21 Previous Rx's Medication Instructions Recorded spironolactone 25 mg tablet 12.5 mg PO DAILY #30 tab 11/18/18 alprazolam 0.25 mg PO BID PRN PRN #20 tab 01/13/21 Allergies Allergy/AdvReac Type Severity Reaction Status Date / Time lisinopril Allergy Severe Throat Unverified 01/12/21 13:47 Sweilling aripiprazole [From Abilify] Allergy Intermediate Unverified 01/12/21 13:47 latex Allergy Intermediate Topical Unverified 01/12/21 13:47 Irritation amitriptyline AdvReac Intermediate Burning Unverified 01/12/21 13:47 Sensation pregabalin AdvReac Mild Visual Unverified 01/12/21 13:47 Disturbances hydrochlorothiazide AdvReac Unknown Unknown Unverified 01/12/21 13:47 Environmental Allergy Intermediate Rhinitis Uncoded 01/12/21 13:47 adhesive bandages AdvReac Intermediate Itching, Uncoded 01/12/21 13:47 Skinn Irritation General Stated Complaint: Chest Pain CRAIG: 2 Review of Systems Constitutional Constitutional: Reports as per HPI, Denies chills, Denies fever(s), Denies headache(s), Denies lethargy and Denies poor appetite Eyes Eyes: Denies change in vision ENT Ears, Nose, Mouth, and Throat: Denies dizziness and Denies headache(s) Cardiovascular Cardiovascular: Reports as per HPI, Reports chest pain, Reports chest pain at rest, Reports chest pain with activity, Denies leg edema, Denies lightheadedness, Reports radiating jaw, neck or arm pain, Denies palpitations, Denies dyspnea and Denies dyspnea on exertion Respiratory Respiratory: Reports as per HPI, Denies chest congestion, Denies cough, Denies pain on inspiration, Denies pain with cough, Denies dyspnea, Denies dyspnea on exertion and Denies wheezing Gastrointestinal Gastrointestinal: Reports as per HPI, Denies abdominal pain, Denies diarrhea, Denies nausea and Denies vomiting Musculoskeletal Musculoskeletal: Reports as per HPI and Denies back pain Integumentary/Breasts Skin/Breast: Reports as per HPI and Denies rash Neurologic Neurologic: Reports as per HPI, Denies dizziness and Denies headache(s) Endocrine Endocrine: Denies palpitations Allergic/Immunologic Allergic/Immunologic: Denies wheezing [facility] Medical History (Updated 01/13/21 @ 13:15 by Wendie Mims NP) Abnormal auditory perception (12/12/14) Anemia Anxiety Aortic dilatation Aortic stenosis Balance problem Bicuspid aortic valve Bipolar disorder Carpal tunnel syndrome of left wrist (01/06/18) Carpal tunnel syndrome, bilateral Cervicalgia Chronic diarrhea CVA (cerebral vascular accident) (~1999) Diastolic CHF Diastolic dysfunction Diverticulosis of colon Dizziness Dysphagia Exercise induced bronchospasm Facial basal cell cancer Fatigue Fibromyalgia Frequent headaches GERD (gastroesophageal reflux disease) Helicobacter pylori (H. pylori) infection Hyperlipidemia Hypertension Left leg numbness Light-headed Memory deficit Migraine headache with aura Murmur Myalgia and myositis No known problems (12/08/12) SHIELA treated with BiPAP Palliative care patient Post traumatic stress disorder Reactive airway disease Reactive depression (situational) Schizoaffective disorder Seasonal affective disorder Sensorineural hearing loss, asymmetrical (02/24/15) Skin lesion Skin tag Sleep apnea Tinnitus Tinnitus, bilateral (02/24/15) Unintentional weight loss Weight loss Surgical History History of hip replacement Hx of tonsillectomy S/P cholecystectomy (~2001) Family History Mother Bipolar 1 disorder, mixed Heart disease Alcohol abuse Son Alcohol abuse Heart disease Bipolar 1 disorder, mixed Son No problems noted. Son No problems noted. Daughter No problems noted. Social History Smoking/Tobacco Use Status: Former Tobacco Use Second Hand Exposure: No Smoking risk assessment performed?: Yes Alcohol Intake: current Alcohol Intake frequency: holidays/special occasions only Alcohol type: beer Counseling given: No Drug use: Never Substance use type: does not use Details: Uses CBD cream on hands for arthritis. 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 Xochitl/Baptism: Jew Special xochitl needs: No Seatbelt use: always Water heater temp set <120 deg: Yes Working smoke detector in home: Yes Fire extinguisher in home: Yes Do you feel safe at home: Yes Do you feel safe in your relationship?: Yes Additional Social history: Happily to since 1959. Grew up next door to each other in [place], [place]. Lots of financial stress. Run out of money every month, even with combined SS. Lives in [address] housing. 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 Has a vehicle; only excess needs one. Exam Const General: cooperative, healthy appearing, comfortable, no acute distress, well developed and anxious Nutritional Appearance: well nourished and overweight Orientation: alert, awake and oriented x3 HENMT Head: normal to inspection Ears: hearing grossly normal bilaterally Mouth: moist mucous membranes Chest Chest: normal inspection of the chest, normal palpation of entire chest wall and no crepitus Resp Effort & Inspection: normal respiratory effort, able to speak in complete sentences and no respiratory distress Auscultation: clear to auscultation bilaterally, no rales, no rhonchi and no wheezes Cardio Rate: regular rate Rhythm: regular rhythm Heart Sounds: S1 normal and S2 normal GI Inspection: normal to inspection, no edema and non-distended Palpation: soft, no hepatosplenomegaly, not firm, no guarding, not rigid and nontender Auscultation: normal bowel sounds Skin General skin exam: no rashes or lesions noted Trauma: no lacerations or abrasions Neuro General: patient alert, patient awake and patient oriented x3 Cognition: normal cognition Speech: speech normal Gait: normal gait Extrem General: normal to inspection, capillary refill normal, no pedal edema, no calf tenderness and normal gait Psych Appearance: grossly normal and well kempt Mental Status: mental status grossly normal Speech and Movement: speech and movement normal Course Vital Signs Vital signs: Vital Signs Temperature 37.1 C 01/12/21 12:57 Pulse 88 01/12/21 12:57 Respiratory Rate 18 01/12/21 12:57 Blood Pressure 153/80 H 01/12/21 12:57 Pulse Oximetry 95 01/12/21 12:57 Temperature 37.1 C 01/12/21 12:57 Temperature Source Skin 01/12/21 12:57 Pulse 88 01/12/21 12:57 Respiratory Rate 18 01/12/21 12:57 Blood Pressure 153/80 H 01/12/21 12:57 Pulse Oximetry 95 01/12/21 12:57 Oxygen Delivery Method Room Air 01/12/21 12:57 Oxygen Flow Rate 0 01/12/21 12:57 Pain Level 2 01/12/21 12:57
[2021-01-12] MEDS: Aspirin 81 MG CHEW 324 MG CH (13:39)
[2021-01-12] MEDS: LORazepam 2 MG/ML VIAL 0.5 MG IVP (13:40)
[2021-01-12 13:41] LABS: Abs Immature Grans 0.01 10^3/uL (0.0-0.06); Absolute Basophil Count 0.03 10^3/uL (0.0-0.2); Absolute Eosinophil Count 0.24 10^3/uL (0.0-0.7); Absolute Lymphocyte Count 1.36 10^3/uL (1.2-3.4); Absolute Monocyte Count 0.54 10^3/uL (0.1-0.8); Absolute Neutrophil Count 3.72 10^3/uL (1.2-6.7); Basophils % 0.5; Eosinophils % 4.1; HCT 40.7 % (36.0-46.0); HGB 13.2 g/dL (11.2-15.7); Immature Grans % 0.2; Lymphocytes % 23.1; MCH 30.2 pg (27.0-33.0); MCHC 32.4 % (32.0-36.0); MCV 93.1 fL (80-95); MPV 10.4 fL (8.0-11.0); Monocytes % 9.2; Neutrophils % 62.9; Nucleated RBC 0 %; Platelet Count 269 10^3/uL (130-400); RBC 4.37 10^6/uL (3.93-5.22); RDW 12.2 % (11.7-14.6); RDW-SD 42.5 fL
[2021-01-12 13:56] LABS: ALT 20 U/L (14-59); AST 12 U/L (15-37); Albumin 3.7 g/dL (3.4-5.0); Alkaline Phosphatase 103 U/L (46-116); Anion Gap 4.7 mmol/L (3-11); BUN 17 mg/dL (7-18); Bilirubin, Total 0.6 mg/dL (0.2-1.0); CO2 32.3 mmol/L (21.0-32.0); CREATININE 0.8 mg/dL (0.55-1.02); Calcium 8.1 mg/dL (8.5-10.1); Chloride 104 mmol/L (98-107); Glucose 109 mg/dL (74-106); Magnesium 2.1 mg/dL (1.8-2.4); Sodium 141 mmol/L (136-145); Total Protein 6.9 g/dL (6.4-8.2)
[2021-01-12 14:02] LABS: Troponin I < 0.05 ng/mL (<0.06)
[2021-01-12 14:07] LABS: PTT Activated 25.7 sec (21.0-27.5); Prothrombin Time 10.4 sec (9.3-11.0)
[2021-01-12] MEDS: nitroGLYcerin 0.4 MG TAB SL (14:22)
[2021-01-12] MEDS: Normal Saline 500 ML IV (14:25)
--- NOTE | 2021-01-12 16:00 | RT.EKG_ITS ---
APPROVED REPORT Exam: Resting ECG Reason for Exam: Patient Location: E HR:67 bpm ECG Measurements Heart Rate 67 AXIS [place] 178 P -4 QRSd 140 QRS -52 QT 455 T 115 QTc 480 Conclusion Sinus rhythm...normal P axis, V-rate 60- 99 Left bundle branch block...QRSd>120, broad/notched R Consider anterolateral infarct...Q >30mS, I aVL V3-V6,I,aVL
[2021-01-12 16:38] LABS: Troponin I < 0.05 ng/mL (<0.06)
[2021-01-12 17:28] LABS: Source Nasal/Nares
[2021-01-12 18:19] LABS: COVID-19 PCR Negative (Negative)
--- NOTE | 2021-01-12 20:22 | HPE_ITS ---
Date of service: 01/12/21 Time of Service: 20:22 Assessment and Plan Assessment and plan (1) Chest pain at rest: Status: Acute Assessment and plan: I suspect that her chest pain was brought on by the increased stress she has at home with dealing with her who has Alzheimer's and whose had erratic behavior including a occult consumption of alcohol. Because the patient did have a type II demand ischemic NSTEMI in August but never followed up with her stress MPI she will need to have this completed. Are now going into the weekend and a stress test will not be possible while she is inpatient. As all of her troponins have been negative I think if she remains free of ischemic chest pain tonight and tomorrow she can be discharge home for follow up Lexiscan stress MPI next week. (2) Aortic stenosis: Status: Chronic Assessment and plan: I think that her symptoms of exertional dyspnea are related to her moderate aortic stenosis. Qualifiers: Cardiac valve disease etiology: nonrheumatic Qualified Code(s): I35.0 - Nonrheumatic aortic (valve) stenosis (3) Diastolic CHF: Status: Acute Assessment and plan: she does not appear to be in acute CHF. will continue her home meds (spironolactone and norvasc; not clear to me why she is not on a BB) (4) Schizoaffective disorder: Status: Acute Assessment and plan: continue her home meds (Seroquel) (5) Anxiety: Status: Chronic Assessment and plan: will order prn xanax History of Present Illness History of Present Illness Chief Complaint: chest pressure Narrative: 80-year- old female with a past medical history significant for atrial fibrillation, moderate aortic stenosis, normal left ventricular function with an LVEF of 60%, type II NSTEMI in August 2020 for which she has not had a follow-up stress MPI or cardiac catheterization, history of bipolar disorder, history of stroke, essential hypertension, left bundle branch block who presents emergency department this afternoon with new onset left arm and neck and jaw pain associated with chest pressure but no dyspnea. Patient states that her discomfort awoke her from her nap. She took one nitroglycerin tablet which eased her jaw and left arm discomfort. But she states she had some residual chest heaviness when she presented emergency room to get checked out. On arrival to the emergency department she had stated to the PA that she was not having any chest discomfort but she tells me she still had residual chest discomfort. She was hypertensive on arrival with a blood pressure 153/80, but was in sinus rhythm at a rate of 88 bpm. EKG demonstrated normal sinus rhythm at a rate of 84 bpm with a left bundle branch block pattern. She had concordant T wave inversions in one and aVL. She has some J-point elevation and repolarization abnormalities across the precordial leads V3 through V6. When compared to her prior EKG there is no significant changes. Second EKG was performed in the emergency department showed similar findings. Serial troponins have been checked and first 2 sets of troponin I levels were normal at less than 0.05. Since admission her third set of troponin has returned normal as well. She is currently free of any symptoms of chest pain or pressure. While in the emergency department she was given Ativan 0.5 mg IV for anxiety. When she reportedly had recurrence of the left arm and shoulder discomfort she was given a nitroglycerin 0.4 mg sublingual. Her heart score is 6 putting her in the moderate probability for her chest pain being due to ischemic pain. She is cu rrently free of any chest pain or pressure. She does admit that with mild exertion she gets dyspneic. Patient will be monitored overnight for any further chest discomfort or cardiac arrhythmias. If she remains asymptomatic she will be discharged home in the morning with a follow-up stress MPI Lexiscan next week. Patient would benefit from receiving some additional help in dealing with her who has Alzheimer's who is caused her considerable amount of stress which I think precipitated this afternoon's episode of chest discomfort. Review of Systems Cardiovascular Cardiovascular: Reports as per HPI, Reports chest pain with activity, Denies leg edema, Reports radiating jaw, neck or arm pain, Denies palpitations, Reports dyspnea on exertion (mild activity such as walking 100 yds) and Denies paroxysmal nocturnal dyspnea Respiratory Respiratory: Denies cough and Reports dyspnea on exertion (mild activity such as walking 100 yds) Gastrointestinal Gastrointestinal: Reports system reviewed and no additional complaints, except as documented Genitourinary Genitourinary: Reports system reviewed and no additional complaints, except as documented Musculoskeletal Musculoskeletal: Reports system reviewed and no additional complaints, except as documented Integumentary/Breasts Skin/Breast: Reports system reviewed and no additional complaints, except as documented Neurologic Neurologic: Reports restless legs Psychiatric Psychiatric: Reports anxiety and Reports depression Endocrine Endocrine: Reports system reviewed and no additional complaints, except as documented and Denies palpitations Hematologic/Lymphatic Hematologic/Lymphatic: Reports system reviewed and no additional complaints, except as documented Allergic/Immunologic Allergic/Immunologic: Reports system reviewed and no additional complaints, except as documented [facility] Medical History (Updated 01/12/21 @ 23:42 by Vidal Bhatia) Anemia Anxiety Aortic dilatation Aortic stenosis Balance problem Bicuspid aortic valve Bipolar disorder Carpal tunnel syndrome, bilateral Cervicalgia Chronic diarrhea CVA (cerebral vascular accident) (~1999) Diastolic CHF Diastolic dysfunction Diverticulosis of colon Dizziness Dysphagia Exercise induced bronchospasm Fatigue Fibromyalgia Frequent headaches GERD (gastroesophageal reflux disease) Helicobacter pylori (H. pylori) infection Hyperlipidemia Hypertension Left leg numbness Memory deficit Murmur Myalgia and myositis SHIELA treated with BiPAP Palliative care patient Post traumatic stress disorder Reactive depression (situational) Schizoaffective disorder Seasonal affective disorder Skin tag Sleep apnea Tinnitus Unintentional weight loss Surgical History History of hip replacement Hx of tonsillectomy S/P cholecystectomy (~2001) Family History Mother Bipolar 1 disorder, mixed Heart disease Alcohol abuse Son Alcohol abuse Heart disease Bipolar 1 disorder, mixed Son No problems noted. Son No problems noted. Daughter No problems noted. Social History (Updated 01/12/21 @ 23:31 by Vidal Bhatia) Smoking/Tobacco Use Status: Former Tobacco Use Second Hand Exposure: No Smoking risk assessment performed?: Yes Alcohol Intake: current Alcohol Intake frequency: holidays/special occasions only Alcohol type: beer Counseling given: No Drug use: Never Substance use type: does not use Details: Uses CBD cream on hands for arthritis. 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 Xochitl/[employer] Special xochitl needs: No Seatbelt use: always Water heater temp set <120 deg: Yes Working smoke detector in home: Yes Fire extinguisher in home: Yes Do you feel safe at home: Yes Do you feel safe in your relationship?: Yes Additional Social history: Happily to since 1959. Grew up next door to each other in [place], [place]. Lots of financial stress. Run out of money every month, even with combined SS. Lives in [address] housing. 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 Has a vehicle; only excess needs one. Meds Allergies and Home Medications Allergies Allergy/AdvReac Type Severity Reaction Status Date / Time lisinopril Allergy Severe Throat Unverified 01/12/21 13:47 Sweilling aripiprazole [From Abilify] Allergy Intermediate Unverified 01/12/21 13:47 latex Allergy Intermediate Topical Unverified 01/12/21 13:47 Irritation amitriptyline AdvReac Intermediate Burning Unverified 01/12/21 13:47 Sensation pregabalin AdvReac Mild Visual Unverified 01/12/21 13:47 Disturbances hydrochlorothiazide AdvReac Unknown Unknown Unverified 01/12/21 13:47 Environmental Allergy Intermediate Rhinitis Uncoded 01/12/21 13:47 adhesive bandages AdvReac Intermediate Itching, Uncoded 01/12/21 13:47 Skinn Irritation Home Medications Medication Instructions Recorded Confirmed Type acetaminophen [Tylenol] 500 mg PO PRN tab-cap 11/30/12 01/12/21 History albuterol sulfate [Ventolin HFA] 2 puff INHALATION Q6H PRN puff 11/30/12 08/30/20 History aspirin [Aspirin Low-Strength] 81 mg PO DAILY tab-cap 11/30/12 01/12/21 History clotrimazole 45 gm TOPICAL BID script 11/30/12 01/12/21 History multivitamin 1 ea PO DAILY 11/30/12 01/12/21 History nitroglycerin [Nitrostat] 0.4 mg SUBLINGUAL DIRECTED 11/30/12 01/12/21 History omega-3 fatty acids-fish oil 1 ea PO DAILY 11/30/12 01/12/21 History cyanocobalamin (vitamin B-12) 1,000 mcg PO DAILY 11/19/13 01/12/21 History [Vitamin B-12] quetiapine [Seroquel XR] 50 mg PO .Q5PM 11/08/15 08/30/20 History quetiapine [Seroquel XR] 200 mg PO .Q5PM 11/08/15 01/12/21 History simvastatin 10 mg PO QPM 12/25/17 01/12/21 History amlodipine 10 mg tablet 15 mg PO DAILY tab 07/15/18 01/12/21 History spironolactone 25 mg tablet 12.5 mg PO DAILY #30 tab 11/18/18 01/12/21 Rx N-acetyl cysteine PO DAILY 04/09/19 04/04/20 History ropinirole 1 mg tablet 3 mg PO 5 PM tab-cap 04/09/19 01/12/21 History gabapentin 300 mg capsule 600 mg PO .COMPLEX cap 04/13/19 01/12/21 History pantoprazole 40 mg tablet,delayed 20 mg PO DAILY tab 04/13/19 01/12/21 History release cholecalciferol (vitamin D3) 10 1,000 unit PO DAILY tab.chew 10/12/20 01/12/21 History mcg (400 unit) chewable tablet Exam Narrative Exam Narrative: Older white female who appears to be younger than her stated age of 80 who is alert and oriented person place time and circumstance. At present she seems to be calm. Skin is nondiaphoretic. HEENT is unremarkable Neck is without JVD and neck is supple. Carotid pulses have bilateral bruits versus transmitted aortic stenosis murmur. Pulses somewhat weak and delayed. Lungs are clear to auscultation Heart is regular rate and rhythm with a harsh crescendo decrescendo murmur over the right second intercostal space with a palpable thrill grade 4 murmur. At the apex she has a softer high-pitched blowing holosystolic murmur. There is no rub and no gallops. Abdomen is soft nontender nondistended no bruits no palpable masses normal active bowel sounds no organomegaly Lower extremities without peripheral cyanosis or edema. She has normal pedal pulses. Neuro exam is grossly intact with no focal deficits. Results Imaging Chest x-ray: report reviewed (FINDINGS: MEDIASTINUM: Normal. HEART: Normal. PULMONARY VASCULATURE: Normal. LUNGS: Clear. PLEURAL SPACE: No pleural effusion or pneumothorax. BONE:Within normal limits for the patient's age. OTHER FINDINGS:Normal. IMPRESSION: No acute pulmonary findings.) and image reviewed EKG: image reviewed Labs Result diagrams: 01/12/21 13:10 01/12/21 13:10 Labs: Laboratory Results - last 24 hr 01/12/21 01/12/21 01/12/21 13:10 13:10 13:10 WBC 5.90 RBC 4.37 Hgb 13.2 Hct 40.7 MCV 93.1 MCH 30.2 MCHC 32.4 RDW 12.2 Plt Count 269 MPV 10.4 Immature Gran % 0.2 Neutrophils % 62.9 Lymphocytes % 23.1 Monocytes % 9.2 Eosinophils % 4.1 Basophils % 0.5 Nucleated RBC % 0 Absolute Neutrophils 3.72 Absolute Lymphocytes 1.36 Absolute Monocytes 0.54 Absolute Eosinophils 0.24 Absolute Basophils 0.03 PT 10.4 INR 1.0 APTT 25.7 Sodium 141 Potassium 4.0 Chloride 104 Carbon Dioxide 32.3 H Anion Gap 4.7 BUN 17 Creatinine 0.8 Estimated GFR/1.73 m2 >= 60.00 Glucose 109 H Calcium 8.1 L Magnesium 2.1 Total Bilirubin 0.6 AST 12 L ALT 20 Alkaline Phosphatase 103 Troponin I < 0.05 Total Protein 6.9 Albumin 3.7 COVID-19 Source SARS-CoV-2 (PCR) 01/12/21 01/12/21 16:15 17:20 WBC RBC Hgb Hct MCV MCH MCHC RDW Plt Count MPV Immature Gran % Neutrophils % Lymphocytes % Monocytes % Eosinophils % Basophils % Nucleated RBC % Absolute Neutrophils Absolute Lymphocytes Absolute Monocytes Absolute Eosinophils Absolute Basophils PT INR APTT Sodium Potassium Chloride Carbon Dioxide Anion Gap BUN Creatinine Estimated GFR/1.73 m2 Glucose Calcium Magnesium Total Bilirubin AST ALT Alkaline Phosphatase Troponin I < 0.05 Total Protein Albumin COVID-19 Source Nasal/Nares SARS-CoV-2 (PCR) Negative Last Vital Signs Temp 37.1 C 01/12/21 12:57 Pulse 70 01/12/21 17:46 Resp 21 01/12/21 17:50 BP 144/80 H 01/12/21 17:46 Pulse Ox 96 01/12/21 17:50
[2021-01-12 21:08] LABS: Troponin I < 0.05 ng/mL (<0.06)
[2021-01-12] MEDS: Simvastatin 10 MG TAB PO (23:03)
[2021-01-12] MEDS: rOPINIRole 1 MG TAB 3 MG PO (23:03)
[2021-01-13 00:01] LABS: NT-proBNP 119 pg/mL (<300)
[2021-01-13 03:42] VITALS: BP 107/64; PULSE 77; RESP 17; TEMP 36.8; O2SAT 92
[2021-01-13 07:00] VITALS: PULSE 79
[2021-01-13 07:22] LABS: Calculated LDL 145 mg/dL (<100); Cholesterol 202 mg/dL (<200); HDL Cholesterol 41 mg/dL (40-60); Triglyceride 80 mg/dL (<150)
[2021-01-13 07:27] LABS: Hemoglobin A1C 5.7 % (<5.7)
[2021-01-13] MEDS: Enoxaparin 40 MG/0.4 ML SYR SC (08:19)
[2021-01-13] MEDS: Multivitamin TAB 1 TAB PO (08:20)
[2021-01-13] MEDS: amLODIPine 10 MG TAB 15 MG PO (08:20)
[2021-01-13] MEDS: Gabapentin 300 MG CAP 600 MG PO ×2 (08:20→11:38)
[2021-01-13] MEDS: Omega-3 Fatty Acids 1000 MG CAP PO (08:20)
[2021-01-13] MEDS: Cholecalciferol (Vitamin D3) 1,000 UNIT TAB 1000 UNITS PO (08:20)
[2021-01-13] MEDS: Cyanocobalamin 500 MCG TAB 1000 MCG PO (08:21)
[2021-01-13] MEDS: Spironolactone 25 MG TAB 12.5 MG PO (08:21)
[2021-01-13] MEDS: Pantoprazole 20 MG TABCR PO (08:21)
[2021-01-13] MEDS: Aspirin 81 MG CHEW PO (08:21)
[2021-01-13 08:25] VITALS: BP 145/80; PULSE 81; RESP 16; TEMP 36.6; O2SAT 93
[2021-01-13] MEDS: Clotrimazole 1% 15 GM TUBE TP (11:39)
[2021-01-13 11:44] VITALS: PULSE 86
--- NOTE | 2021-01-13 12:46 | DSE_ITS ---
Date of service: 01/13/21 Time of Service: 12:46 DS: Diagnosis Discharge Diagnosis (1) Chest pain at rest: Start date: 01/13/21 Start time: 12:46 Status: Acute Asessment and Plan: Patient was admitted overnight for CP likely brought on by increased stress at home. She does express at times she does not feel safe at home due to her having dementia with mood swings and he also is having SI, with with erratic behaviour and large amounts of alcoholic consumption. She states at times she is unable to control him and his mood swings come and go, he is not the man she 61 years ago. She has tried reaching out for help in the community but feels that no one has been able to help her. CM contacted. They stated they would follow up with her on Friday and contact [facility] for community resources we spoke about different options when she is not feeling safe and she agrees to these options. She also know she needs to have a stress test. She was given xanax which helped her CP. Will give her script for this and recommend follow up with her PCP in 1 week. Will order outpatient nuclear lexiscan stress for her. She should f/u with cardiology after. (2) Aortic stenosis: Start date: 01/13/21 Start time: 12:53 Status: Chronic Asessment and Plan: her symptoms of exertional dyspnea are related to her moderate aortic stenosis. (3) Diastolic CHF: Start date: 01/13/21 Start time: 12:54 Status: Acute Asessment and Plan: she does not appear to be in acute CHF. will continue her home meds (spironolactone and norvasc; not clear to me why she is not on a BB) (4) Schizoaffective disorder: Start date: 01/13/21 Start time: 12:54 Status: Acute Asessment and Plan: continue home meds (5) Anxiety: Start date: 01/13/21 Start time: 12:55 Status: Chronic Asessment and Plan: will order xanax discussed with Dr. Bhatia. Discharge Plan Disposition Patient Disposition: HOME Condition: Good Discharge Details Reason For Visit: Chest Pain Admit Date/Time: 01/12/21 19:45 Admit Provider: Vidal Bhatia Attending Provider: Vidal Bhatia Primary Care Provider: Ijeoma Cruz V Hospital Course Hospital Course: 80 y.o female with PMH of schizo disorder, aortic steniosis, diastolic CHF, Fibromyalgia, Afib, CVA, HTN, presented to [facility] ED with CP yesterday afternoon new onset to left jaw arm and neck. She was suppose to have a stress test back in August ordered by Cardiology but she has been under alot of stress from dealing with home stressors with her (see diagnosis). Today she has no pain, she is more tearful over her home situation. She feels she if failing her though it is not her fault. Trops negative in the ED. Labs and imaging unremarkable. She does need and a stress test, which will be ordered for outpatient. At this time I believe her cause of pain was anxiety brought on by home. Xanax helped take her pain away. We spoke about her home life and have a plan she is agreeable. CM is involved and will reach out to her on Friday. She is being discharged home on xanax. She will be scheduled for outpatient NPI due to aortic stenosis she will need lexiscan. She denies CP, SOB, N/V/D. Follow with PCP in 1 wee. Home Meds and New Rx's Prescriptions: New alprazolam 0.25 mg Tablet 0.25 mg PO BID PRN PRN (Reason: Anxiety) Qty: 20 RF: 0 Continued N-acetyl cysteine capsule PO DAILY RF: 0 amlodipine [Norvasc] 10 mg tablet 15 mg PO DAILY RF: 0 spironolactone 25 mg tablet 12.5 mg PO DAILY Qty: 30 RF: 5 multivitamin 1 EACH tablet 1 ea PO DAILY RF: 0 acetaminophen [Tylenol] 325 MG tablet 500 mg PO PRN RF: 0 nitroglycerin [Nitrostat] 0.4 MG tablet, sublingual 0.4 mg Sublingual DIRECTED RF: 0 aspirin [Aspirin Low-Strength] 81 MG tablet,chewable 81 mg PO DAILY RF: 0 albuterol sulfate [Ventolin HFA] 8 GM HFA aerosol inhaler 2 puff Inhalation Q6H PRN RF: 0 clotrimazole 45 GM cream 45 gm Topical BID RF: 0 omega-3 fatty acids-fish oil 1 EACH capsule 1 ea PO DAILY RF: 0 ropinirole 1 mg tablet 3 mg PO 5 PM RF: 0 cholecalciferol (vitamin D3) 10 mcg (400 unit) tablet,chewable 1,000 unit PO DAILY RF: 0 cyanocobalamin (vitamin B-12) [Vitamin B-12] 1,000 MCG tablet 1,000 mcg PO DAILY RF: 0 gabapentin 300 mg capsule 600 mg PO .COMPLEX RF: 0 quetiapine [Seroquel XR] 200 MG tablet extended release 24 hr 200 mg PO .Q5PM RF: 0 quetiapine [Seroquel XR] 50 MG tablet extended release 24 hr 50 mg PO .Q5PM RF: 0 simvastatin 10 MG tablet 10 mg PO QPM RF: 0 pantoprazole 40 mg tablet,delayed release (DR/EC) 20 mg PO DAILY RF: 0 Discharge Instructions Instructions: Stress (DC), Help Prevent Suicide in Older Adults (DC), Anxiety (DC), Nuclear Stress Test (DC), Depression in Older Adults (DC) Additional Instructions: Call 911 if you do not feel safe and feel you have no where to go Take xanax as needed Case management will reach out to you Friday for services with [facility] Take xanax as needed for anxiety, follow up with your PCP in 1 week We will call you with date and time of your nuclear stress test Stand Alone Forms: Nursing Discharge Form Referrals: Ijeoma Cruz MD [Primary Care Provider] - (Please call office during regular business hours for follow-up appointment in 1 to 2 weeks. ) Activity:: Activity as Tolerated Equipment/Supplies:: No Equipment Needed Diet:: Heart Healthy Discharge Orders Discharge Orders: Discharge Order (Routine); Ordered 01/13/21 Ordered By: Wendie Mims Other Ambulatory Orders: NM MPI rest or stress day 1 (Routine) Location: None Selected Ordered By: Wendie Mims DS: Summary Time Spent with Patient providing and/or coordinating discharge services: Greater than 30 minutes Status at Discharge Functional status at discharge: independent ambulation Overall status at discharge: patient is back to baseline Mental Status: mental status grossly normal and other (tearful) Speech and Movement: speech and movement normal Mood: other (tearful) Affect: normal affect Exam Narrative Exam Narrative: Older white female who appears to be younger than her stated age of 80 who is alert and oriented person place time and circumstance. At present she seems to be calm. Skin is nondiaphoretic. She does get tearful and weepy at times HEENT is unremarkable Neck is without JVD and neck is supple. Carotid pulses have bilateral bruits versus transmitted aortic stenosis murmur. Pulses somewhat weak and delayed. Lungs are clear to auscultation Heart is regular rate and rhythm with a harsh crescendo decrescendo murmur over the right second intercostal space with a palpable thrill grade 4 murmur. At the apex she has a softer high-pitched blowing holosystolic murmur. There is no rub and no gallops. Abdomen is soft nontender nondistended no bruits no palpable masses normal active bowel sounds no organomegaly Lower extremities without peripheral cyanosis or edema. She has normal pedal pulses. Neuro exam is grossly intact with no focal deficits. Psych Mental Status: mental status grossly normal and other (tearful) Speech and Movement: speech and movement normal Mood: other (tearful) Affect: normal affect DS: Data Vitals/I&O Vitals and I&O: Vital Signs Temperature 36.6 C 01/13/21 08:25 Temperature Source Tympanic 01/13/21 08:25 Pulse 81 01/13/21 08:25 Pulse Rhythm Regular 01/12/21 23:57 Pulse 90 01/12/21 19:50 Respiratory Rate 16 01/13/21 08:25 Respiratory Effort Non-Labored 01/12/21 23:57 Respiratory Depth Normal 01/12/21 23:57 Respiratory Pattern Normal 01/12/21 23:57 Blood Pressure 145/80 H 01/13/21 08:25 Blood Pressure Mean 94 01/12/21 19:46 Pulse Oximetry 93 01/13/21 08:25 Oxygen Delivery Method Room Air 01/13/21 08:25 Oxygen Flow Rate 0 01/13/21 08:25 Pain Level 0 01/13/21 08:25 Comment 01/12/21 21:07 Intake & Output 01/12/21 01/13/21 01/13/21 23:59 11:59 23:59 Intake Total 500 / 500 480 / 480 Output Total 500 / 500 Balance 500 / 500 - / -20 Weight 83.9 kg Intake: IV 500 / 500 Oral 480 / 480 Output: Urine 500 / 500 Other: Urine Color Yellow Urine Appearance Clear Clear Urine Odor Normal Voiding Methods Toilet Data Completed and Pending Completed studies during hospitalization [Text1]: Exam(s) XR CHEST 2V PA LATERAL EXAM: XR CHEST 2V PA LATERAL CLINICAL HISTORY: CP TECHNIQUE: 2D digital imaging was performed. COMPARISON: CR XR CHEST 2V PA LATERAL from 02/11/2019 FINDINGS: MEDIASTINUM: Normal. HEART: Normal. PULMONARY VASCULATURE: Normal. LUNGS: Clear. PLEURAL SPACE: No pleural effusion or pneumothorax. BONE:Within normal limits for the patient's age. OTHER FINDINGS:Normal. IMPRESSION: No acute pulmonary findings. Labs on day of discharge: Labs from last 24 hours 01/13/21 01/13/21 01/12/21 06:33 06:33 20:45 WBC RBC Hgb Hct MCV MCH MCHC RDW Plt Count MPV Immature Gran % Neutrophils % Lymphocytes % Monocytes % Eosinophils % Basophils % Nucleated RBC % Absolute Neutrophils Absolute Lymphocytes Absolute Monocytes Absolute Eosinophils Absolute Basophils PT INR APTT Sodium Potassium Chloride Carbon Dioxide Anion Gap BUN Creatinine Estimated GFR/1.73 m2 Glucose Hemoglobin A1c 5.7 Calcium Magnesium Total Bilirubin AST ALT Alkaline Phosphatase Troponin I < 0.05 NT-Pro-B Natriuret Pep 119 Total Protein Albumin Triglycerides 80 Total Cholesterol 202 H LDL Cholesterol, Calc 145 H HDL Cholesterol 41 COVID-19 Source SARS-CoV-2 (PCR) 01/12/21 01/12/21 01/12/21 17:20 16:15 13:10 WBC RBC Hgb Hct MCV MCH MCHC RDW Plt Count MPV Immature Gran % Neutrophils % Lymphocytes % Monocytes % Eosinophils % Basophils % Nucleated RBC % Absolute Neutrophils Absolute Lymphocytes Absolute Monocytes Absolute Eosinophils Absolute Basophils PT 10.4 INR 1.0 APTT 25.7 Sodium Potassium Chloride Carbon Dioxide Anion Gap BUN Creatinine Estimated GFR/1.73 m2 Glucose Hemoglobin A1c Calcium Magnesium Total Bilirubin AST ALT Alkaline Phosphatase Troponin I < 0.05 NT-Pro-B Natriuret Pep Total Protein Albumin Triglycerides Total Cholesterol LDL Cholesterol, Calc HDL Cholesterol COVID-19 Source Nasal/Nares SARS-CoV-2 (PCR) Negative 01/12/21 01/12/21 13:10 13:10 WBC 5.90 RBC 4.37 Hgb 13.2 Hct 40.7 MCV 93.1 MCH 30.2 MCHC 32.4 RDW 12.2 Plt Count 269 MPV 10.4 Immature Gran % 0.2 Neutrophils % 62.9 Lymphocytes % 23.1 Monocytes % 9.2 Eosinophils % 4.1 Basophils % 0.5 Nucleated RBC % 0 Absolute Neutrophils 3.72 Absolute Lymphocytes 1.36 Absolute Monocytes 0.54 Absolute Eosinophils 0.24 Absolute Basophils 0.03 PT INR APTT Sodium 141 Potassium 4.0 Chloride 104 Carbon Dioxide 32.3 H Anion Gap 4.7 BUN 17 Creatinine 0.8 Estimated GFR/1.73 m2 >= 60.00 Glucose 109 H Hemoglobin A1c Calcium 8.1 L Magnesium 2.1 Total Bilirubin 0.6 AST 12 L ALT 20 Alkaline Phosphatase 103 Troponin I < 0.05 NT-Pro-B Natriuret Pep Total Protein 6.9 Albumin 3.7 Triglycerides Total Cholesterol LDL Cholesterol, Calc HDL Cholesterol COVID-19 Source SARS-CoV-2 (PCR) [facility] Medical History (Updated 01/13/21 @ 13:15 by Wendie Mims NP) Abnormal auditory perception (12/12/14) Anemia Anxiety Aortic dilatation Aortic stenosis Balance problem Bicuspid aortic valve Bipolar disorder Carpal tunnel syndrome of left wrist (01/06/18) Carpal tunnel syndrome, bilateral Cervicalgia Chronic diarrhea CVA (cerebral vascular accident) (~1999) Diastolic CHF Diastolic dysfunction Diverticulosis of colon Dizziness Dysphagia Exercise induced bronchospasm Facial basal cell cancer Fatigue Fibromyalgia Frequent headaches GERD (gastroesophageal reflux disease) Helicobacter pylori (H. pylori) infection Hyperlipidemia Hypertension Left leg numbness Light-headed Memory deficit Migraine headache with aura Murmur Myalgia and myositis No known problems (12/08/12) SHIELA treated with BiPAP Palliative care patient Post traumatic stress disorder Reactive airway disease Reactive depression (situational) Schizoaffective disorder Seasonal affective disorder Sensorineural hearing loss, asymmetrical (02/24/15) Skin lesion Skin tag Sleep apnea Tinnitus Tinnitus, bilateral (02/24/15) Unintentional weight loss Weight loss Surgical History History of hip replacement Hx of tonsillectomy S/P cholecystectomy (~2001) Family History Mother Bipolar 1 disorder, mixed Heart disease Alcohol abuse Son Alcohol abuse Heart disease Bipolar 1 disorder, mixed Son No problems noted. Son No problems noted. Daughter No problems noted. Social History Smoking/Tobacco Use Status: Former Tobacco Use Second Hand Exposure: No Smoking risk assessment performed?: Yes Alcohol Intake: current Alcohol Intake frequency: holidays/special occasions only Alcohol type: beer Counseling given: No Drug use: Never Substance use type: does not use Details: Uses CBD cream on hands for arthritis. 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 Xochitl/Temple: Mu-Ism Special xochitl needs: No Seatbelt use: always Water heater temp set <120 deg: Yes Working smoke detector in home: Yes Fire extinguisher in home: Yes Do you feel safe at home: Yes Do you feel safe in your relationship?: Yes Additional Social history: Happily to since 1959. Grew up next door to each other in [place], [place]. Lots of financial stress. Run out of money every month, even with combined SS. Lives in [address] housing. 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 Has a vehicle; only excess needs one.
--- NOTE | 2021-01-16 08:56 | PDOC.ERCMPRO ---
- If Service Date Differs Date of service: 01/12/21 Time of Service: 14:00 Care Management Progress Note Maite presents in the ED for chest pain. At the request of ED provider, EMMETT meets with Maite to offer resources as Maite is feeling overwhelmed with caring for her , Jesus, who has a diagnosis of Alzheimer. Maite reports her is connected with [facility] and that a [facility] nurse comes into the house once a week. She has also been in contact with the [facility] and they will be providing an aide at some point but due to current staffing issues, they do not have an aide available at this time. Maite also shares that their daughter, Raquel, has applied for guardianship of Jesus and that once she has obtained guardianship, the plan is to look for a halfway facility for him. EMMETT has a long conversation with Maite about the ED provider's safety concerns. Maite advises that her can become argumentative and screams but denies that he has ever been physically aggressive or threatening towards her. Maite also shares that Jesus has made some suicidal statements recently, saying that he should just walk out into the road and get hit by a car. Maite gives permission to contact [facility] to relay this information and to ask that they outreach to Jesus. Also with Maite's verbal permission, EMMETT contacts Jesus Osborn's PCP's office, and requests that they place referrals for Home Health services and for a palliative care consult to provide the couple with additional supports.
== END 2021-01-13 14:53 | disposition home or self-care (01) ==
LOC: ER 20:02 → MS 20:34
PROVIDERS: Admitting Provider Internal Medicine; Emergency Provider Physician Assistant; PCP Family Medicine; Visit Provider Internal Medicine
DX: R07.89 Other chest pain (principal); I35.0 Nonrheumatic aortic (valve) stenosis; I50.30 Unspecified diastolic (congestive) heart failure; F25.9 Schizoaffective disorder, unspecified; F41.9 Anxiety disorder, unspecified; I48.91 Unspecified atrial fibrillation; I25.2 Old myocardial infarction; Z86.73 Personal history of transient ischemic attack (TIA), and cerebral infarction without residual deficits; I44.7 Left bundle-branch block, unspecified; I11.0 Hypertensive heart disease with heart failure; D64.9 Anemia, unspecified; Q23.1 Congenital insufficiency of aortic valve; K52.9 Noninfective gastroenteritis and colitis, unspecified; M79.7 Fibromyalgia; G47.33 Obstructive sleep apnea (adult) (pediatric); Z20.822 Contact with and (suspected) exposure to COVID-19
CPT/HCPCS: 36415; 80053; 80061; 87635; 93005; 96361; 96374; 99285; J1650; 71046; 83036; 83735; 83880; 84484; 85025; 85610; 85730; 93010; 99217; 99219; G0378; J2060; J3490

== ENCOUNTER 2021-01-25 02:24 | Outpatient (CLI) | payer MEDICARE, SELFPAY ==
--- NOTE | 2021-01-25 11:00 | DI.NM_ITS ---
APPROVED REPORT Exam: Exercise Treadmill Patient Location: Out-Patient Room/Bed: Stress Nurse: Mitzy Marshall RN Ordering Provider:KASSY MURPHYHALLE, Contact Number: [phone] BMI: 30.61 Baseline Rhythm: SR w/ LBBB Indications: Chest pain, nonrheumatic aortic stenosis Medical History Medical History: Anemia, anxiety, aortic stenosis, bicuspid aortic valve, heart murmur, hypertension, hyperlipidemia, diastolic CHF, pre-diabetes, bipolar, dizziness, fibromyalgia, gerd, SHIELA w/ bipap, [facility] (2018) Cardiac Medications: spironolactone, simvastatin, pantoprazole, nitro, gabapentin, aspirin, amlodipin e, albuterol sulfate, acetylcysteine Allergies: lisinopril, aripiprazole, latex, amitriptyline, pregabalin, hydrochlorothiazide, adhesives , environmental allergies Cardiac Risk Factors: Hypertension, hyperlipidemia, pre-diabetes, family hx Previous Cardiac Procedures: None Pretest Chest Pain Characteristics: None Exercise History: Sedentary Physical Disabilities: BLL weakness Lung Sounds: Clear to auscultation Heart Sounds: Murmur Stress Test Details Test: Pharmacologic stress was paired with low level exercise. Reason for pharmacologic stress test: LBBB. Nuclear Acquisition: Rest Tc-99m/Stress Tc-99m 1 day Rest Isotope: Tc-99m Sestamibi. Dose: 12.1 Date: 01/25/2021 Injection Time: 11.0 Stress Isotope: Tc-99m Sestamibi. Dose: 36.1 Date: 01/25/2021 Injection Time: 1346 HR Resting HR Supine: 71 bpm Max Heart Rate (APMHR): 140.012266 bpm Resting HR Standin bpm Target HR (85% APMHR): 119.195247 bpm Max HR Achieved: 111 bpm % of APMHR: 79.29 Recovery HR: 87 bpm BP Resting BP Supine: 150/90 mmHg Resting BP Standin/88 mmHg Max BP: 154/88 mmHg Recovery BP: 146/90 mmHg ECG Resting ECG: Sinus Rhythm, LBBB Ectopy: Rare PVC Comment: Significant artifact present during ambulation to treadmill Stress ECG: Sinus Tachycardia, LBBB ST Change: Nondiagnostic LBBB Arrhythmia: Occasional PVC Recovery ECG: Sinus Rhythm, LBBB Recovery ST Change: Nondiagnostic LBBB Recovery Arrhythmia: Rare PAC and PVC Clinical Stress Symptoms: Dyspnea, Chest pain, General Fatigue, Nausea Exercise duration: 4 min06 sec Exercise capacity: 1.77 METs Rate Pressure Product: 35459 Stress Test Summary STAGE HR BP Symptoms NOTES Supine 71 150/90 1 min post Lexiscan injection 109 Moderate SOB, flushed, chest tightness 7/10, moderate headache SpO 2 95% 3 min post Lexiscan injection 99 Nausea SpO2 96% 6 min post Lexiscan injection 99 144/92 Symptoms improving SpO2 96% 9 min post Lexiscan injection 86 146/90 Symptoms improving SpO2 97% 12 min post Lexiscan injection Symptoms resolved other than lingering mild headache SpO2 96% MPI Conclusion Myocardial perfusion appears within normal limits, no evidence of significant ischemia or prior infar ction EF 53% Radiologist Interpretation Radiologist agrees with Wet Machine Operator's Interpretation. Radiologist Interpretation by: Link Cerrato MD Interpretation Date/Time: 01/30/2021 13:15:13
[2021-01-25] MEDS: Regadenoson 0.4 MG/5 ML SYR IVP (13:59)
== END 2021-01-25 02:44 ==
PROVIDERS: PCP Family Medicine; Visit Provider Nurse Practitioner Family
DX: R07.9 Chest pain, unspecified (principal); I35.0 Nonrheumatic aortic (valve) stenosis; Q23.1 Congenital insufficiency of aortic valve; R01.1 Cardiac murmur, unspecified; I10 Essential (primary) hypertension; E78.5 Hyperlipidemia, unspecified; R73.03 Prediabetes; Z82.49 Family history of ischemic heart disease and other diseases of the circulatory system
CPT/HCPCS: 78452; 93016; 93018; 93017; J2785

== ENCOUNTER 2021-07-13 18:05 | Emergency (ER) | payer MEDICARE, SELFPAY ==
[2021-07-13] VITALS (22 sets, daily range): BP systolic 136–213; BP diastolic 73–113; PULSE 64–100; RESP 12–23; TEMP 36.7; O2SAT 91–98
--- NOTE | 2021-07-13 18:00 | RT.EKG_ITS ---
APPROVED REPORT Exam: Resting ECG Reason for Exam: stroke? Patient Location: E HR:89 bpm ECG Measurements Heart Rate 89 AXIS MO 194 P 50 QRSd 138 QRS -51 QT 397 T 113 QTc 483 Conclusion Sinus rhythm...normal P axis, Probable left atrial enlargement Left bundle branch block... ST elevation secondary to IVCD.
--- NOTE | 2021-07-13 18:30 | DI.CT_ITS ---
Exam(s) CT BRAIN NECK CTA EXAM: CT BRAIN NECK CTA CLINICAL HISTORY: R eyelid drooping, flashing lights. TECHNIQUE: Imaging Protocol: Axial CT angiography was performed with multi-slice acquisition and mu lti-planar and/or 3D reconstructions. CONTRAST MATERIAL: Intravenous: Omnipaque 350 Contrast volume:85 cc COMPARISON: CT CT HEAD WO from 08/30/2020 CT,NM,TMT NM MPI REST STRESS GRP from 01/25/2021 FINDINGS: CT Head W/O and W contrast: Ventricles and Extra axial spaces: Normal in size and morphology for the patient's age. Hemorrhage: None. Cerebral parenchyma: Normal. Midline shift: None. Brainstem/Cerebellum: Normal. Calvarium: Normal. Visualized Paranasal sinuses/Mastoids: Clear. Soft Tissues: Unremarkable. Enhancement: Normal. CTA Brain W: Internal Carotid Arteries: Petrous: Mural calcification. No significant stenosis. Cavernous: Mural calcification. No significant stenosis Cerebral: Normal. Middle Cerebral Arteries: Right: No aneurysm, occlusion or significant stenosis. Left: No aneurysm, occlusion or significant stenosis. Anterior Cerebral Arteries: Right: No aneurysm, occlusion or significant stenosis. Left: No aneurysm, occlusion or significant stenosis. Posterior cerebral Arteries: Right: No aneurysm, occlusion or significant stenosis. Left: No aneurysm, occlusion or significant stenosis. Vertebral Arteries: Right: Calcification and severe stenosis at the level of the foramen magnum.. No aneurysm, occlusion . Left: Calcification and severe stenosis distally at the level of the foramen magnum.. No aneurysm, o cclusion . Basilar Artery: No aneurysm, occlusion or significant stenosis. CTA Neck W: Common Carotid: Right: No aneurysm, occlusion or significant stenosis. Left: No aneurysm, occlusion or significant stenosis. External Carotid: Right:no aneurysm, occlusion or significant stenosis. Left: No aneurysm, occlusion or significant stenosis. Internal Carotid: Right: Mild plaque common carotid bulb and proximal right internal carotid artery. No aneurysm, oc clusion or significant stenosis. Left: Mixed calcified and noncalcified plaque at the common carotid bulb and proximal ICA, moderate stenosis. No aneurysm, occlusion or significant stenosis. Vertebral Artery: Right: No aneurysm, occlusion or significant stenosis. Left: No aneurysm, occlusion or significant stenosis. Lung Apices: Normal. Bones: Normal. Soft Tissues: 12 millimeter cystic-appearing nodule of the right lobe of the thyroid. Does not meet size criteria for follow-up. IMPRESSION: 1. Severe stenosis distal bilateral vertebral arteries at the level of the skull base.. 2. Unremarkable CT Head. 3. Moderate stenosis of the left proximal internal carotid artery. RADIATION DOSE DELIVERED: 1,936.15mGy.cm Total DLP DATA REPOSITORY: All CT scans at this facility are submitted to the National Radiology Data Registry (NRDR) Dose Index Registry (DIR) with the [employer] (ACR). RADIATION OPTIMIZATION: All CT scans at this facility use at least one of these dose optimization te chniques: automated exposure control; mA and/or kV adjustment per patient size (includes targeted exa ms where dose is matched to clinical indication); or iterative reconstruction.
--- NOTE | 2021-07-13 18:30 | DI.RAD_ITS ---
Exam(s) XR CHEST 2V PA LATERAL EXAM: XR CHEST 2V PA LATERAL CLINICAL HISTORY: chest pain TECHNIQUE: 2D digital imaging was performed. COMPARISON: CR XR CHEST 2V PA LATERAL from 01/12/2021 FINDINGS: MEDIASTINUM: Aorta mildly tortuous. HEART: Mildly enlarged. PULMONARY VASCULATURE: Normal. LUNGS: Clear. PLEURAL SPACE: No pleural effusion or pneumothorax. BONE:Unremarkable for age. Soft tissues: Cholecystectomy clips. No free air. IMPRESSION: No acute abnormality. DATA REPOSITORY: RADIATION DOSE DELIVERED:
[2021-07-13 18:59] LABS: Abs Immature Grans 0.02 10^3/uL (0.0-0.06); Absolute Basophil Count 0.04 10^3/uL (0.0-0.2); Absolute Eosinophil Count 0.22 10^3/uL (0.0-0.7); Absolute Lymphocyte Count 2.38 10^3/uL (1.2-3.4); Absolute Monocyte Count 0.96 10^3/uL (0.1-0.8); Absolute Neutrophil Count 6.39 10^3/uL (1.2-6.7); Basophils % 0.4; Eosinophils % 2.2; HCT 43.7 % (36.0-46.0); HGB 14.2 g/dL (11.2-15.7); Immature Grans % 0.2; Lymphocytes % 23.8; MCH 31.1 pg (27.0-33.0); MCHC 32.5 % (32.0-36.0); MCV 95.6 fL (80-95); MPV 10.9 fL (8.0-11.0); Monocytes % 9.6; Neutrophils % 63.8; Nucleated RBC 0 %; Platelet Count 342 10^3/uL (130-400); RBC 4.57 10^6/uL (3.93-5.22); RDW 12.4 % (11.7-14.6); WBC 10.01 10^3/uL (4.4-10.8)
[2021-07-13] MEDS: amLODIPine 10 MG TAB PO (19:10)
[2021-07-13 19:11] LABS: Prothrombin Time 10.5 sec (9.3-11.0)
[2021-07-13] MEDS: amLODIPine 5 MG TAB PO (19:11)
[2021-07-13 19:18] LABS: ALT 15 U/L (14-59); AST 14 U/L (15-37); Albumin 4.3 g/dL (3.4-5.0); Alkaline Phosphatase 102 U/L (46-116); Anion Gap 5.2 mmol/L (3-11); BUN 25 mg/dL (7-18); Bilirubin, Total 0.5 mg/dL (0.2-1.0); CO2 32.8 mmol/L (21.0-32.0); CREATININE 0.8 mg/dL (0.55-1.02); Calcium 8.8 mg/dL (8.5-10.1); Chloride 101 mmol/L (98-107); Glucose 94 mg/dL (74-106); Potassium 3.5 mmol/L (3.5-5.1); Sodium 139 mmol/L (136-145); Total Protein 7.8 g/dL (6.4-8.2); Troponin I < 50 ng/L (<or=60)
[2021-07-13 19:25] LABS: NT-proBNP 213 pg/mL (<300)
[2021-07-13] MEDS: Omnipaque 350 MG/ML 100 ML BTL IJ (19:29)
[2021-07-13] MEDS: Normal Saline Flush 10 ML SYR IVP (19:30)
--- NOTE | 2021-07-13 19:42 | DI.VRAD_ITS ---
PROCEDURE INFORMATION: Exam: XR Chest Exam date and time: 07/13/2021 7:32 PM Age: 80 years old Clinical indication: Other: Generalized chest pain TECHNIQUE: Imaging protocol: XR of the chest. Views: 2 views. COMPARISON: CR XR CHEST 2V PA LATERAL 01/12/2021 2:58 PM FINDINGS: Lungs: The lungs are clear without infiltrate or edema. Pleural spaces: Unremarkable. No pleural effusion. No pneumothorax. Heart/Mediastinum: Unremarkable. No cardiomegaly. Vasculature: The descending thoracic aorta is mildly tortuous. Bones/joints: Widening of the right acromioclavicular joint, unchanged, representing sequela prior injury or prior surgery. Organs: Cholecystectomy clips are seen within the right upper quadrant. IMPRESSION: No acute findings. Dictated and Authenticated by: Yolette Ceja MD. Ordering:RACHEL Drake MD
--- NOTE | 2021-07-13 19:45 | ED.GENADUL_ITS ---
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 Weight loss Surgical History History of hip replacement Hx of tonsillectomy S/P cholecystectomy (~2001) Family History Mother Bipolar 1 disorder, mixed Heart disease Alcohol abuse Son Alcohol abuse Heart disease Bipolar 1 disorder, mixed Son No problems noted. Son No problems noted. Daughter No problems noted. Grandson Bipolar 1 disorder, mixed Social History Smoking/Tobacco Use Status: Former Tobacco Use Second Hand Exposure: No Smoking risk assessment performed?: Yes Alcohol Intake: current Alcohol Intake frequency: holidays/special occasions only Alcohol type: beer Counseling given: No Substance use type: other Details: Uses CBD cream on hands for arthritis. 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 Xochitl/Amish: Taoism Special xochitl needs: No Seatbelt use: always Water heater temp set <120 deg: Yes Working smoke detector in home: Yes Fire extinguisher in home: Yes Do you feel safe at home: Yes Do you feel safe in your relationship?: Yes Additional Social history: Happily to since 1959. Grew up next door to each other in [place], [place]. Lots of financial stress. Run out of money every month, even with combined SS. Lives in [address] housing. 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 She is caring more for her , who is quite sedentary. 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 Planning on downsizing soon, moving to smaller apt in same building. Trying to stay within budget. Quite active when I saw her, up and down, showing me things, etc. Does not appear severely chronically ill. Mood appears well controlled. Exam Const General: cooperative, healthy appearing, comfortable, no acute distress and anxious (Slightly) Orientation: alert, awake and oriented x3 [facility] Head: normal to inspection, normocephalic and atraumatic Ears: hearing grossly normal bilaterally Face and sinus: normal facial exam Mouth: oral mucosae normal and moist mucous membranes Eyes General: appearance normal, both eyes and all related structures Alignment and Position: alignment normal Periorbital: periorbital findings normal Eyelids: eyelids normal Conjunctivae: conjunctivae normal Sclera: sclerae normal Cornea: corneas normal Pupils: PERRL EOM: EOM intact bilaterally Direct ophthalmoscopy: normal light reflex Neck Neck: normal visual inspection, full ROM, no lymphadenopathy, no meningeal signs, trachea midline, supple and nontender Carotids: no bruits Resp Effort & Inspection: normal respiratory effort and able to speak in complete sentences Auscultation: clear to auscultation bilaterally Cardio Rate: regular rate Rhythm: regular rhythm Heart Sounds: murmur GI Palpation: soft, not firm, no guarding, no pulsatile masses and nontender Auscultation: normal bowel sounds Back/Spine/Pelvis Back: No back tenderness Skin General skin exam: no rashes or lesions noted Neuro General: patient alert, patient awake, patient oriented x3, moves all extremities and no focal motor deficits Cranial Nerves: CN's II-XI intact bilaterally Cognition: normal cognition Speech: speech normal Gait: normal gait Motor: muscle tone normal throughout, strength 5/5 throughout, no pronator drift, no movement abnormalities noted and no fasciculations Sensory Exam: no sensory deficits noted Coordination: Does not sway with eyes open Extrem General: normal to inspection, full ROM, capillary refill normal, no pedal edema and no calf tenderness Psych Appearance: grossly normal Mental Status: mental status grossly normal Course Vital Signs Vital signs: Vital Signs Temperature 36.7 C 07/13/21 18:08 Pulse 94 H 07/13/21 18:08 Respiratory Rate 13 07/13/21 18:08 Blood Pressure 213/108 H 07/13/21 18:08 Pulse Oximetry 97 07/13/21 18:08 Temperature 36.7 C 07/13/21 18:08 Temperature Source Skin 07/13/21 18:08 Pulse 79 07/13/21 19:01 Pulse 81 07/13/21 19:01 Respiratory Rate 16 07/13/21 19:01 Respiratory Effort 07/13/21 18:44 Respiratory Depth Normal 07/13/21 18:44 Respiratory Pattern Normal 07/13/21 18:44 Blood Pressure 155/87 H 07/13/21 19:01 Blood Pressure Mean 102 07/13/21 19:01 Pulse Oximetry 93 07/13/21 19:01 Oxygen Delivery Method Room Air 07/13/21 18:08 Oxygen Flow Rate 0 07/13/21 18:08 Pain Level 0 07/13/21 18:08 Lab/Test Results Lab/Test Results: Laboratory Tests Range/Units 07/13/21 07/13/21 07/13/21 18:17 18:17 18:17 WBC (4.4-10.8) 10^3/uL 10.01 RBC (3.93-5.22) 10^6/uL 4.57 Hgb (11.2-15.7) g/dL 14.2 Hct (36.0-46.0) % 43.7 MCV (80-95) fL 95.6 H MCH (27.0-33.0) pg 31.1 MCHC (32.0-36.0) % 32.5 RDW (11.7-14.6) % 12.4 Plt Count (130-400) 10^3/uL 342 MPV (8.0-11.0) fL 10.9 Immature Gran % 0.2 Neutrophils % 63.8 Lymphocytes % 23.8 Monocytes % 9.6 Eosinophils % 2.2 Basophils % 0.4 Nucleated RBC % % 0 Absolute Neutrophils (1.2-6.7) 10^3/uL 6.39 Absolute Lymphocytes (1.2-3.4) 10^3/uL 2.38 Absolute Monocytes (0.1-0.8) 10^3/uL 0.96 H Absolute Eosinophils (0.0-0.7) 10^3/uL 0.22 Absolute Basophils (0.0-0.2) 10^3/uL 0.04 PT (9.3-11.0) sec 10.5 INR (0.9-1.1) 1.0 Sodium (136-145) mmol/L 139 Potassium (3.5-5.1) mmol/L 3.5 Chloride (98-107) mmol/L 101 Carbon Dioxide (21.0-32.0) mmol/L 32.8 H Anion Gap (3-11) mmol/L 5.2 BUN (7-18) mg/dL 25 H Creatinine (0.55-1.02) mg/dL 0.8 Estimated GFR/1.73 m2 (mL/min/1.73m2) >= 60.00 Glucose (74-106) mg/dL 94 Calcium (8.5-10.1) mg/dL 8.8 Magnesium (1.8-2.4) mg/dL 2.0 Total Bilirubin (0.2-1.0) mg/dL 0.5 AST (15-37) U/L 14 L ALT (14-59) U/L 15 Alkaline Phosphatase (46-116) U/L 102 Troponin I (<or=60) ng/L < 50 NT-Pro-B Natriuret Pep (<300) pg/mL Total Protein (6.4-8.2) g/dL 7.8 Albumin (3.4-5.0) g/dL 4.3 Range/Units 07/13/21 18:17 WBC (4.4-10.8) 10^3/uL RBC (3.93-5.22) 10^6/uL Hgb (11.2-15.7) g/dL Hct (36.0-46.0) % MCV (80-95) fL MCH (27.0-33.0) pg MCHC (32.0-36.0) % RDW (11.7-14.6) % Plt Count (130-400) 10^3/uL MPV (8.0-11.0) fL Immature Gran % Neutrophils % Lymphocytes % Monocytes % Eosinophils % Basophils % Nucleated RBC % % Absolute Neutrophils (1.2-6.7) 10^3/uL Absolute Lymphocytes (1.2-3.4) 10^3/uL Absolute Monocytes (0.1-0.8) 10^3/uL Absolute Eosinophils (0.0-0.7) 10^3/uL Absolute Basophils (0.0-0.2) 10^3/uL PT (9.3-11.0) sec INR (0.9-1.1) Sodium (136-145) mmol/L Potassium (3.5-5.1) mmol/L Chloride (98-107) mmol/L Carbon Dioxide (21.0-32.0) mmol/L Anion Gap (3-11) mmol/L BUN (7-18) mg/dL Creatinine (0.55-1.02) mg/dL Estimated GFR/1.73 m2 (mL/min/1.73m2) Glucose (74-106) mg/dL Calcium (8.5-10.1) mg/dL Magnesium (1.8-2.4) mg/dL Total Bilirubin (0.2-1.0) mg/dL AST (15-37) U/L ALT (14-59) U/L Alkaline Phosphatase (46-116) U/L Troponin I (<or=60) ng/L NT-Pro-B Natriuret Pep (<300) pg/mL 213 Total Protein (6.4-8.2) g/dL Albumin (3.4-5.0) g/dL
--- NOTE | 2021-07-13 19:53 | DI.VRAD_ITS ---
PROCEDURE INFORMATION: Exam: CT Angiography Head With Contrast, Arteriography Exam date and time: 07/13/2021 6:47 PM Age: 80 years old Clinical indication: Other: R eyelid drooping, flashing lights TECHNIQUE: Imaging protocol: Computed tomography angiography of the head with contrast. Exam focused on the arteries. 3D rendering (Not supervised by radiologist): MIP and/or 3D reconstructed images were created by the technologist. Radiation optimization: All CT scans at this facility use at least one of these dose optimization techniques: automated exposure control; mA and/or kV adjustment per patient size (includes targeted exams where dose is matched to clinical indication); or iterative reconstruction. Contrast material: OMNIPAQUE 350; Contrast volume: 85 ml; Contrast route: INTRAVENOUS (IV); COMPARISON: HEAD^MRA COW 12/25/2017 12:05 PM FINDINGS: ANTERIOR CIRCULATION: Right internal carotid artery: Peripheral calcific atherosclerotic plaque throughout the cavernous segment resulting in areas of mild stenosis. No high-grade stenosis or occlusion. No aneurysm. Right middle cerebral artery: No occlusion or significant stenosis. No aneurysm. Right anterior cerebral artery: No occlusion or significant stenosis. No aneurysm. Left internal carotid artery: Peripheral calcific atherosclerotic plaque throughout the cavernous segment resulting in areas of mild stenosis. No high-grade stenosis or occlusion. No aneurysm. Left middle cerebral artery: No occlusion or significant stenosis. No aneurysm. Left anterior cerebral artery: No occlusion or significant stenosis. No aneurysm. POSTERIOR CIRCULATION: Right vertebral artery: Atherosclerotic plaque throughout the V4 segment, resulting in severe stenosis within the junction of the proximal and mid V4 segment. Normal contrast opacification distal to the stenosis without occlusion. Left vertebral artery: Atherosclerotic plaque throughout the V4 segment resulting in severe stenosis of the junction of the proximal and mid segment. Normal contrast opacification distal to the stenosis without occlusion. Basilar artery: Minimal dolichoectasia. No occlusion or significant stenosis. No aneurysm. Right posterior cerebral artery: Unremarkable. No occlusion or significant stenosis. No aneurysm. Left posterior cerebral artery: Unremarkable. No occlusion or significant stenosis. No aneurysm. Brain: No significant volume loss within the brain parenchyma. A few scattered areas of low attenuation are seen within the subcortical and periventricular white matter. No loss of alexis-white differentiation to suggest an acute cortical infarct. No intracranial hemorrhage. No midline shift. Cerebral ventricles: No hydrocephalus. Orbital cavity: Bilateral lens replacements. The intraorbital contents are otherwise normal appearance. Bones/joints: Unremarkable. No acute fracture. Mastoid air cells: The mastoid air cells are well aerated. Soft tissues: Unremarkable. Paranasal sinuses: The paranasal sinuses are well aerated. IMPRESSION: 1. 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 2. No large vessel hemodynamically significant stenosis or occlusion within the remaining intracranial arteries. 3. No evidence for an acute intracranial process. PROCEDURE INFORMATION: Exam: CT Angiography Neck With Contrast Exam date and time: 07/13/2021 6:47 PM Age: 80 years old Clinical indication: Other: R eyelid drooping, flashing lights TECHNIQUE: Imaging protocol: Computed tomography angiography of the neck with contrast. 3D rendering (Not supervised by radiologist): MIP and/or 3D reconstructed images were created by the technologist. Radiation optimization: All CT scans at this facility use at least one of these dose optimization techniques: automated exposure control; mA and/or kV adjustment per patient size (includes targeted exams where dose is matched to clinical indication); or iterative reconstruction. Contrast material: OMNIPAQUE 350; Contrast volume: 85 ml; Contrast route: INTRAVENOUS (IV); COMPARISON: HEAD^MRA COW 12/25/2017 12:05 PM FINDINGS: Right common carotid artery: No stenosis. No dissection or occlusion. Right internal carotid artery: Mild atherosclerotic plaque within the right carotid bulb and proximal right ICA without stenosis, occlusion or dissection. Right external carotid artery: No occlusion or stenosis of the origin. Left common carotid artery: No stenosis. No dissection or occlusion. Left internal carotid artery: Soft and calcific atherosclerotic plaque within the left carotid bulb and proximal left ICA resulting in moderate stenosis. No occlusion. Left external carotid artery: No occlusion or stenosis of the origin. Right vertebral artery: No stenosis. No dissection or occlusion. Left vertebral artery: No stenosis. No dissection or occlusion. Aorta: The great vessels of the level aortic arch opacify normally with contrast without stenosis, occlusion or dissection. Thyroid: A predominantly cystic and partially calcified nodule is seen extending off of the posterior margin of the midpole of the right lobe of the thyroid gland measuring 12 x 10 x 11 mm. Soft tissues: Normal. No significant soft tissue swelling. Bones/joints: No acute fracture. Diffuse cervical spondylosis, with varying degrees of moderate to severe neural foraminal and mild spinal canal stenosis seen at C3-C4 through C6-C7. Lungs: The lung apices are well aerated. IMPRESSION: 1. Moderate stenosis within the proximal left ICA. No occlusion. 2. The remaining extracranial arteries are widely patent without stenosis, occlusion or dissection. 3. 12 x 10 x 11 mm predominantly cystic nodule extending off the posterior margin of the midpole of the right lobe of the thyroid gland. No additional follow-up is necessary per current ACR guidelines. REFERENCES: NASCET CRITERIA. The degree of internal carotid artery stenosis is based on NASCET criteria. Normal is no stenosis. Mild is less than 50% stenosis. Moderate is 50-69% stenosis. Severe is 70% to 99% stenosis. Total occlusion is no detectable patent lumen. Dictated and Authenticated by: Yolette Ceja MD. Ordering:RACHEL Drake MD
[2021-07-13 20:13] LABS: Source Nasal/Nares
[2021-07-13 20:18] LABS: Bilirubin Negative (Negative); Blood Negative (Negative); Clarity Clear (Clear); Glucose Negative (Negative); Ketones Negative (Negative); Leukocyte Esterase Small (Negative); Nitrite Negative (Negative); Urobilinogen 0.2 EU/dL (Up TO 0.2)
[2021-07-13 20:29] LABS: Bacteria Rare HPF (Negative); C & S Indicated? Yes; Crystals Few Calcium Oxalate HPF (Negative); Epithelial Cells Moderate HPF (Negative); Mucus Negative (Negative); RBC Negative HPF (0-2)
[2021-07-13] MEDS: ACETAMINOPHEN 1,000 MG/100 ML BTL 400 MG IVPB (20:33)
[2021-07-13 21:12] LABS: COVID-19 PCR Negative (Negative)
[2021-07-13 21:27] LABS: ESR 10 mm/hr (0-30)
[2021-07-13 21:53] LABS: C-Reactive Protein < 0.05 mg/dL (0.0-0.3)
[2021-07-13 22:01] LABS: Troponin I < 50 ng/L (<or=60)
--- NOTE | 2021-07-13 22:16 | NUR.NOTE ---
Referral faxed to [facility], [place] to f/u jer for visual changes.Nursing Note:
== END 2021-07-13 22:29 | disposition home or self-care (01) ==
PROVIDERS: Emergency Provider Physician Assistant; PCP Family Medicine
DX: H53.19 Other subjective visual disturbances (principal); R51.9 Headache, unspecified; Z20.822 Contact with and (suspected) exposure to COVID-19; R07.9 Chest pain, unspecified; H02.401 Unspecified ptosis of right eyelid; M79.18 Myalgia, other site; I11.0 Hypertensive heart disease with heart failure; I50.30 Unspecified diastolic (congestive) heart failure; R42 Dizziness and giddiness; R82.79 Other abnormal findings on microbiological examination of urine
CPT/HCPCS: 36415; 36416; 70496; 70498; 80053; 82962; 85652; 87635; 93005; 96365; 99284; 99285; 71046; 81003; 81015; 83735; 83880; 84484; 85025; 85610; 86140; 87086; 93010; J0131; J3490

== ENCOUNTER 2021-09-05 02:45 | Outpatient (CLI) | payer MEDICARE, SELFPAY ==
[2021-09-05 11:45] LABS: FREE T4 0.86 ng/dL (0.76-1.46); TSH 1.39 uIU/mL (0.36-3.74)
[2021-09-05 22:19] LABS: T3,Free 3.2 pg/mL (2.8-5.3)
== END 2021-09-05 02:46 | disposition home or self-care (01) ==
LOC: LBO 02:45
PROVIDERS: PCP Family Medicine; Visit Provider Ophthalmology Ophthalmic Plastic and Reconstructive Surgery
DX: H02.423 Myogenic ptosis of bilateral eyelids (principal)
CPT/HCPCS: 36415; 83519; 84439; 84443; 84481

== ENCOUNTER 2021-10-12 19:08 | Outpatient (REF) | payer MEDICARE, SELFPAY | END 2021-10-12 19:09 | disposition home or self-care (01) | LOC: LBN 19:08 | PROVIDERS: PCP Family Medicine; Visit Provider Physician Assistant Medical | DX: R39.89 Other symptoms and signs involving the genitourinary system (principal) | CPT/HCPCS: 87086 ==

== ENCOUNTER 2021-10-20 17:29 | Emergency (ER) | payer MEDICARE, SELFPAY ==
[2021-10-20 17:40] VITALS: BP 163/70; PULSE 87; RESP 16; TEMP 37; O2SAT 96
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
[2021-10-20] MEDS: Ondansetron 4 MG/2 ML VIAL IVP ×2 (18:14→19:14)
[2021-10-20] MEDS: Ondansetron 4 MG/2 ML VIAL (18:15)
[2021-10-20 18:16] LABS: Bilirubin Negative (Negative); Blood Trace-intact (Negative); Clarity Clear (Clear); Glucose Negative (Negative); Ketones Negative (Negative); Leukocyte Esterase Trace (Negative); Nitrite Negative (Negative); Specific Gravity >= 1.030 (1.005-1.025); Urobilinogen 0.2 EU/dL (Up TO 0.2)
[2021-10-20 18:17] LABS: Abs Immature Grans 0.01 10^3/uL (0.0-0.06); Absolute Basophil Count 0.04 10^3/uL (0.0-0.2); Absolute Eosinophil Count 0.12 10^3/uL (0.0-0.7); Absolute Monocyte Count 0.79 10^3/uL (0.1-0.8); Absolute Neutrophil Count 6.35 10^3/uL (1.2-6.7); Basophils % 0.4; Eosinophils % 1.3; HCT 45.1 % (36.0-46.0); HGB 14.6 g/dL (11.2-15.7); Immature Grans % 0.1; Lymphocytes % 18.9; MCH 31.3 pg (27.0-33.0); MCHC 32.4 % (32.0-36.0); MCV 97 fL (80-95); MPV 10.6 fL (8.0-11.0); Monocytes % 8.8; Neutrophils % 70.5; Platelet Count 301 10^3/uL (130-400); RBC 4.67 10^6/uL (3.93-5.22); RDW 12.1 % (11.7-14.6); RDW-SD 43.3 fL; WBC 9.01 10^3/uL (4.4-10.8)
[2021-10-20 18:29] LABS: Bacteria Negative HPF (Negative); C & S Indicated? Yes; Casts Negative LPF (Negative); Crystals Negative HPF (Negative); Epithelial Cells Few HPF (Negative); Mucus Negative (Negative); Other Cells Negative (Negative); RBC Negative HPF (0-2)
[2021-10-20 18:36] LABS: ALT 24 U/L (14-59); AST 17 U/L (15-37); Albumin 4.3 g/dL (3.4-5.0); Alkaline Phosphatase 104 U/L (46-116); Anion Gap 8.6 mmol/L (3-11); BUN 24 mg/dL (7-18); Bilirubin, Total 0.9 mg/dL (0.2-1.0); CO2 29.4 mmol/L (21.0-32.0); Calcium 8.8 mg/dL (8.5-10.1); Chloride 104 mmol/L (98-107); Estimated GFR 53.21 (mL/min/1.73m2); Glucose 125 mg/dL (74-106); Magnesium 2.3 mg/dL (1.8-2.4); Potassium 3.5 mmol/L (3.5-5.1); Sodium 142 mmol/L (136-145); Total Protein 7.7 g/dL (6.4-8.2)
[2021-10-20 18:53] VITALS: BP 158/76; PULSE 88; RESP 18; O2SAT 97
[2021-10-20] MEDS: cefTRIAXone 1 GM/50 ML BAG IVPB (19:13)
[2021-10-20] MEDS: cefTRIAXone 1 GM/50 ML BAG 4 GM (19:13)
[2021-10-20] MEDS: Normal Saline 1,000 ML 1000 ML IV (19:14)
[2021-10-20 20:35] VITALS: BP 144/69; PULSE 77; RESP 18; O2SAT 97
--- NOTE | 2021-10-20 23:40 | NUR.NOTE ---
Referral faxed to [facility] to follow up for GI problems within a week.Nursing Note:
[2021-10-20 23:47] VITALS: BP 150/91; PULSE 78; RESP 14; TEMP 36.7; O2SAT 95
== END 2021-10-20 23:50 | disposition home or self-care (01) ==
PROVIDERS: Emergency Medicine; Emergency Provider Student in an Organized Health Care Education/Training Program; PCP Family Medicine
DX: E86.0 Dehydration (principal); K52.9 Noninfective gastroenteritis and colitis, unspecified
CPT/HCPCS: 80053; 96361; 96365; 96375; 99284; 81003; 81015; 83735; 85025; 87086; 99283; J0696; J2405

== ENCOUNTER 2021-10-22 14:29 | Emergency (ER) | payer MEDICARE, SELFPAY ==
[2021-10-22 15:06] VITALS: BP 146/97; PULSE 85; RESP 20; TEMP 36; O2SAT 94
[2021-10-22 17:20] VITALS: BP 124/77; PULSE 83; RESP 17; TEMP 36.6; O2SAT 96
[2021-10-22] MEDS: Normal Saline 1,000 ML 1000 ML IV ×2 (18:04→19:33)
[2021-10-22] MEDS: Ondansetron 4 MG/2 ML VIAL IVP (18:05)
[2021-10-22 18:32] LABS: Abs Immature Grans 0.02 10^3/uL (0.0-0.06); Absolute Basophil Count 0.04 10^3/uL (0.0-0.2); Absolute Lymphocyte Count 1.12 10^3/uL (1.2-3.4); Absolute Monocyte Count 0.52 10^3/uL (0.1-0.8); Basophils % 0.5; Eosinophils % 1.4; HCT 41.7 % (36.0-46.0); HGB 13.4 g/dL (11.2-15.7); Immature Grans % 0.3; Lymphocytes % 15.1; MCH 31.5 pg (27.0-33.0); MCHC 32.1 % (32.0-36.0); MCV 98 fL (80-95); MPV 10.7 fL (8.0-11.0); Neutrophils % 75.7; Platelet Count 261 10^3/uL (130-400); RBC 4.25 10^6/uL (3.93-5.22); RDW 12.1 % (11.7-14.6)
[2021-10-22 18:42] LABS: Bilirubin Small (Negative); Blood Negative (Negative); Clarity Clear (Clear); Glucose Negative (Negative); Ketones Trace mg/dL (Negative); Leukocyte Esterase Negative (Negative); Nitrite Negative (Negative); Specific Gravity >= 1.030 (1.005-1.025); Urobilinogen 0.2 EU/dL (Up TO 0.2); pH 5.5 (5-8)
[2021-10-22 19:02] LABS: ALT 35 U/L (14-59); AST 24 U/L (15-37); Alkaline Phosphatase 93 U/L (46-116); Anion Gap 6.5 mmol/L (3-11); BUN 21 mg/dL (7-18); Bilirubin, Total 0.8 mg/dL (0.2-1.0); CO2 32.5 mmol/L (21.0-32.0); CREATININE 0.8 mg/dL (0.55-1.02); Calcium 8.7 mg/dL (8.5-10.1); Chloride 107 mmol/L (98-107); Glucose 105 mg/dL (74-106); Lipase 36 U/L (73-393); Potassium 3.6 mmol/L (3.5-5.1); Sodium 146 mmol/L (136-145); Total Protein 6.7 g/dL (6.4-8.2)
[2021-10-22 19:12] LABS: Bacteria Negative HPF (Negative); C & S Indicated? No/Sq. Contamination; Casts Negative LPF (Negative); Crystals Mod Calcium Oxalate HPF (Negative); Epithelial Cells Moderate HPF (Negative); Mucus Negative (Negative); RBC Negative HPF (0-2)
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
[2021-10-22 20:43] VITALS: BP 144/77; PULSE 78; RESP 18; O2SAT 95
== END 2021-10-22 20:44 | disposition home or self-care (01) ==
PROVIDERS: Emergency Provider Physician Assistant; PCP Family Medicine
DX: R11.2 Nausea with vomiting, unspecified (principal); R19.7 Diarrhea, unspecified
CPT/HCPCS: 36415; 80053; 83690; 96361; 96374; 99284; 81003; 81015; 85025; 99283; J2405

== ENCOUNTER → 2022-01-08 02:52 | Outpatient (CLI) | payer MEDICARE, SELFPAY ==
--- NOTE | 2022-01-08 12:15 | DI.US_ITS ---
Exam(s) US THYROID EXAM: US THYROID CLINICAL HISTORY: LT THYROID NODULE, E04.1. TECHNIQUE: Ultrasound thyroid performed using standard protocol. COMPARISON: CT CT BRAIN NECK CTA from 07/13/2021 FINDINGS: ISTHMUS: 4 mm RIGHT LOBE: Size: 3.7 x 1.6 x 1.3 cm Echogenicity: Normal. Vascularity: Normal. Nodules: There is a 0.9 x 0.9 x 0.9 cm solid isoechoic nodule in the right lobe. It corresponds to t he findings on the CT scan from 07/13/2021. It has smooth margins and a macrocalcification is present . It corresponds to a TIRADS level 4 nodule. No follow-up is recommended based on its size. LEFT LOBE: Size: 3.5 x 1.6 x 1.3 cm Echogenicity: Normal. Vascularity: Normal. Nodules: None. OTHER FINDINGS: None. IMPRESSION: 1. No evidence of a left thyroid nodule. 2. 0.9 cm right thyroid nodule corresponding to the finding seen on the CT scan from 07/13/2021. It c orresponds to a TI rads level 4 nodule. No follow-up is recommended based on its size. DATA REPOSITORY:
== END ==
PROVIDERS: PCP Family Medicine; Visit Provider Family Medicine
DX: E04.1 Nontoxic single thyroid nodule (principal)
CPT/HCPCS: 76536

== ENCOUNTER 2022-04-02 13:52 | Outpatient (REF) | payer MEDICARE, SELFPAY ==
[2022-04-02 15:55] LABS: ALT 15 U/L (14-59); AST 22 U/L (15-37); Albumin 3.7 g/dL (3.4-5.0); Alkaline Phosphatase 94 U/L (46-116); Anion Gap 6.4 mmol/L (3-11); BUN 23 mg/dL (7-18); Bilirubin, Total 0.5 mg/dL (0.2-1.0); CO2 31.6 mmol/L (21.0-32.0); CREATININE 0.8 mg/dL (0.55-1.02); Calcium 8.8 mg/dL (8.5-10.1); Calculated LDL 101 mg/dL (<100); Chloride 104 mmol/L (98-107); Cholesterol 173 mg/dL (<200); Estimated GFR 73.98 (mL/min/1.73m2); Glucose 87 mg/dL (74-106); HDL Cholesterol 57 mg/dL (40-60); Potassium 4.7 mmol/L (3.5-5.1); Sodium 142 mmol/L (136-145); Total Protein 7.2 g/dL (6.4-8.2); Triglyceride 79 mg/dL (<150)
[2022-04-02 16:00] LABS: Hemoglobin A1C 5.7 % (<5.7)
== END 2022-04-02 13:53 | disposition home or self-care (01) ==
LOC: NCHCN 13:52
PROVIDERS: PCP Family Medicine; Visit Provider Family Medicine
DX: I10 Essential (primary) hypertension (principal); E78.5 Hyperlipidemia, unspecified; R73.03 Prediabetes
CPT/HCPCS: 80053; 80061; 83036

== ENCOUNTER 2022-07-24 02:52 | Outpatient (CLI) | payer MEDICARE, SELFPAY ==
--- NOTE | 2022-07-24 12:52 | DI.US_ITS ---
APPROVED REPORT EXAM: Comprehensive 2D, Doppler, and color-flow Echocardiogram Patient Location: Out-Patient Process Trainer: Summer Vallejo RDCS (AE) Indications: Moderate aortic stenosis Other Information Study Quality: Adequate Conclusion Normal left ventricular wall thickness and chamber size. Estimated ejection fraction is 55 to 60%. Wall motion is normal Normal right ventricular size and systolic function Left atrium is mildly dilated. Right atrial size is normal The aortic valve is calcified. Number of aortic valve leaflets cannot be determined. Peak gradien t is 58, mean 34. Calculated aortic valve area is 1.3 cm??. By gradients the stenosis is severe. I calculated aortic valve area it is mild. Suspect that calculated aortic valve area is inaccurate Mitral annular calcification, mild mitral regurgitation Normal tricuspid valve with mild regurgitation. Right ventricular systolic pressure could not be est imated Wall motion Left Ventricle The left ventricle is normal size. The left ventricular systolic function is normal. The left ventric ular ejection fraction is within the normal range. There is normal left ventricular wall thickness. T here is normal LV segmental wall motion. There is no ventricular septal defect visualized. LVEF is 55 -60%. Right Ventricle The right ventricle is normal size. The right ventricular systolic function is normal. Atria Left atrium is mildly dilated. The right atrium size is normal. The interatrial septum is intact with no evidence for an atrial septal defect. Aortic Valve Aortic valve is calcified. Number of aortic valve leaflets could not be assessed. Moderate to severe aortic stenosis. Peak aortic valve gradient is 58.0mmHg. Highest mean aortic valve gradient is 33.8mm Hg. Calculated JERAD by the continuity equation is 1.30cm2. No aortic regurgitation is present. Mitral Valve Moderate mitral annular calcification. No evidence of mitral valve stenosis. Mild mitral regurgitatio n. Tricuspid Valve The tricuspid valve is normal in structure. There is no tricuspid valve stenosis. Mild tricuspid regu rgitation. Unable to assess PA pressure. Pulmonic Valve The pulmonary valve is normal in structure. There is no pulmonic valvular stenosis. Trace pulmonic re gurgitation. Great Vessels The aortic root is normal in size. The ascending aorta is normal in size. Aortic arch is not well vis ualized. IVC is normal in size and collapses >50% with inspiration. Pericardium There is no pericardial effusion. 2D Dimensions IVSD d PLAX 0.98 cm F: 0.6-1.0 LV Vol A2C d MOD 101.3 mL LVPW d PLAX 1.04 cm F: 0.6 - 1.0 LV Vol A4C d MOD 99.9 mL LVID d PLAX 4.50 cm F: 3.8 - 5.2 LA vol/ BSA A2C s A-L 50.8 mL/m2 LVDs 3.25 cm F: 2.2 - 3.5 LA vol/ BSA A4C s A-L 46.0 mL/m2 Ao Root d 2.83 cm F: 2.7 - 3.3 LA Vol/ BSA Biplane s A-L 48.9 mL/m2 RA Area A4C 16.14 cm2 LA Area A4C s MOD 25.01 cm2 RA Vol/ BSA A4C s A-L 22.6 mL/m2 LA Area A2C s MOD 25.95 cm2 LV EF Teichholz 53.4 % LV EF A4C MOD 54.5 % LVEF (Benitez's) 53.80 % F: 54 - 74 LV EF A2C MOD 55.4 % LV Volume 78.67 mL F: 46 - 106 LV EF Biplane MOD 53.8 % LV Volume Index 43.70 mL/m2 F: 29 - 61 SV 54.44 mL LV Vol Biplane MOD 101.2 mL SV Index 30.20 mL/m2 FS 27.35 % M-Mode TAPSE 2.66 cm (M/F) >1.7 LV Diastology MV E' medial 0.054 (>0.07 m/s) E/A Ratio 0.8 LV E/e MED 24.85 (<14) MV E Vmax 1.34 (0.4-1.3 m/s) MV E' lateral 0.076 (>0.1 m/s) MV A Vmax 1.60 (0.4-1.3 m/s) LV E/e LAT 17.65 (<14) MV E/A Ratio 0.83 MV E/E' medial 24.90 MV E/E' lateral 17.67 Aortic Valve LVOT Area 3.15 cm2 AoV Area Vmax 1.30 cm2 LVOT Vmax 1.57 m/s AoV Area/ BSA (Vmax) 0.72 cm2/m2 LVOT Mean Martín. 1.07 m/s JERAD Mean Martín. 1.23 cm2 LVOT Peak Grad 9.9 mmHg JERAD Mean Martín. Index 0.68 cm2/m2 LVOT Mean Grad 5.4 mmHg LVOT VTI 0.386 m LVOT Diam s 2.00 cm AoV Vmax 3.81 m/s Velocity Ratio 0.41 AoV Mean Martín. 2.76 m/s AoV Peak Grad 58.0 mmHg LVOT SV 121.59 mL AoV Mean Grad 33.8 mmHg AoV VTI 0.916 m AoV Area VTI 1.33 cm2 AoV Area/ BSA (VTI) 0.74 cm/m2 Mitral Valve MV DT 290 (160-240 msec) MV PHT 84 msec MV Area PHT 2.62 cm2 MV VTI 0.572 m MV Area VTI 2.13 (4.0-6.0 cm2) Pulmonary Valve PV Vmax 1.32 (0.5-1.5 m/s) RVOT Peak Gr. 5.59 mmHg PV Peak Grad 6.9 mmHg RVOT Mean Gr. 3.00 mmHg PV Mean Grad 4.1 mmHg RVOT VTI 0.231 m PV VTI 0.275 m RVOT Vmax 1.18 m/s
== END 2022-07-24 03:12 ==
PROVIDERS: PCP Family Medicine; Visit Provider Family Medicine
DX: I35.0 Nonrheumatic aortic (valve) stenosis (principal)
CPT/HCPCS: 93306

== ENCOUNTER 2022-08-13 11:35 | Outpatient (CLI) | payer MEDICARE, SELFPAY ==
--- NOTE | 2022-08-13 11:30 | RT.EKG_ITS ---
APPROVED REPORT Exam: Resting ECG Reason for Exam: Patient Location: O HR:72 bpm ECG Measurements Heart Rate 72 AXIS CO 141 P -51 QRSd 140 QRS -55 QT 430 T 109 QTc 471 Conclusion Sinus or ectopic atrial rhythm...P axis (-45,135) Left bundle branch block...QRSd>120, broad/notched R
== END 2022-08-13 11:36 | disposition home or self-care (01) ==
LOC: DI.CARD 11:35
PROVIDERS: PCP Family Medicine; Visit Provider Internal Medicine Cardiovascular Disease
DX: I35.0 Nonrheumatic aortic (valve) stenosis (principal); R94.31 Abnormal electrocardiogram [ECG] [EKG]; I44.7 Left bundle-branch block, unspecified
CPT/HCPCS: 93010

== ENCOUNTER → 2022-08-13 13:37 | Outpatient (BNVA) | payer MEDICARE, SELFPAY | PROVIDERS: PCP Family Medicine; Referring Provider Family Medicine; Visit Provider Internal Medicine Cardiovascular Disease | DX: I35.0 Nonrheumatic aortic (valve) stenosis (principal); I77.819 Aortic ectasia, unspecified site; G70.00 Myasthenia gravis without (acute) exacerbation | CPT/HCPCS: 93005; 99214 ==

== ENCOUNTER 2022-08-16 04:38 | Emergency (ER) | payer MEDICARE, SELFPAY ==
[2022-08-16 04:27] VITALS: BP 115/64; PULSE 99; RESP 16; TEMP 37; O2SAT 91
--- NOTE | 2022-08-16 04:30 | DI.RAD_ITS ---
Exam(s) XR KNEE LT 3V AP,LAT,SARA EXAM: XR KNEE LT 3V AP,LAT,SARA CLINICAL HISTORY: fell, left knee pain, r/o fx. TECHNIQUE: 2D digital imaging was performed. COMPARISON: No exams were available for comparison FINDINGS: 3 views h no evidence of acute fracture but there is a joint effusion signifying internal derangement. Mild degenerative changes. No significant osseous lesions. Vascular calcification incidentally noted. IMPRESSION: No acute fracture. However, there is a joint effusion noted. This signifies internal derangement. DATA REPOSITORY: RADIATION DOSE DELIVERED:
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
[2022-08-16] MEDS: Acetaminophen 500 MG TAB 1000 MG PO (04:48)
--- NOTE | 2022-08-16 07:28 | DI.VRAD_ITS ---
PROCEDURE INFORMATION: Exam: XR Left Knee Exam date and time: 08/16/2022 4:53 AM Age: 81 years old Clinical indication: Injury or trauma; Fall; Blunt trauma; Injury details: Fell, left knee pain, R/O FX TECHNIQUE: Imaging protocol: Radiologic exam of the left knee. Views: 3 views. COMPARISON: No relevant prior studies available. FINDINGS: Bones/joints: There is no acute fracture or dislocation. There is mild medial compartmental joint space narrowing. Lateral compartment is preserved. There is a small suprapatellar effusion. Vascular: There are vascular calcifications seen throughout the distal superficial femoral and popliteal artery. Soft tissues: Normal. IMPRESSION: No acute osseous pathology. Small suprapatellar effusion. Mild degenerative changes. Dictated and Authenticated by: Sylvester Mckenzie MD. Ordering:SOLEDAD Carias MD
[2022-08-16 07:35] VITALS: BP 110/69; PULSE 87; RESP 18; O2SAT 96
--- NOTE | 2022-08-16 07:35 | NUR.NOTE ---
MACIE wrap applied to left knee per MD Ghosh verbal order.
== END 2022-08-16 07:36 | disposition home or self-care (01) ==
PROVIDERS: Emergency Provider Student in an Organized Health Care Education/Training Program; PCP Family Medicine
DX: S83.92XA Sprain of unspecified site of left knee, initial encounter (principal); I10 Essential (primary) hypertension; J45.909 Unspecified asthma, uncomplicated; Z79.82 Long term (current) use of aspirin; Z86.73 Personal history of transient ischemic attack (TIA), and cerebral infarction without residual deficits; X50.9XXA Other and unspecified overexertion or strenuous movements or postures, initial encounter; Y92.009 Unspecified place in unspecified non-institutional (private) residence as the place of occurrence of the external cause; Y93.01 Activity, walking, marching and hiking
CPT/HCPCS: 73562; 99283; 99282

== ENCOUNTER → 2022-08-20 09:02 | Outpatient (BNVA) | payer MEDICARE, SELFPAY | PROVIDERS: PCP Family Medicine; Referring Provider Family Medicine; Visit Provider Nurse Practitioner Adult Health | DX: G43.109 Migraine with aura, not intractable, without status migrainosus (principal); G43.009 Migraine without aura, not intractable, without status migrainosus; R44.2 Other hallucinations; I10 Essential (primary) hypertension | CPT/HCPCS: 99204; 99214 ==

== ENCOUNTER 2022-09-06 03:23 | Outpatient (CLI) | payer MEDICARE, SELFPAY ==
--- NOTE | 2022-09-09 21:45 | PDOC.EEG ---
Neurology EEG EEG: [facility] Department of Neurology LONG-TERM AMBULATORY EEG REPORT Date of Recordin09/06/22 at 10:46:21 to 09/09/22 at 05:11:56 Interpreting Physician: Dr. Tierney Beard PCP/Referring Provider: Dr. Ijeoma Cruz/Ryann Swanson NP Reason for study: Ms. Boggs is an 82 year-old woman with a complicated history with recurrent olfactory hallucinations vs delusions concerning for seizure. Current Medications: Home Medications Medication Instructions Recorded Confirmed Type acetaminophen 325 mg tablet 500 mg PO PRN 11/30/12 08/22/22 History (Tylenol) albuterol sulfate 90 mcg/actuation 2 puff inhalation Q6H PRN 11/30/12 08/22/22 History aerosol inhaler (Ventolin HFA) aspirin 81 mg chewable tablet 81 mg PO DAILY 11/30/12 08/22/22 History (Aspirin Low-Strength) clotrimazole 1 % topical cream 45 gm topical BID 11/30/12 08/22/22 History multivitamin 1 ea PO DAILY 11/30/12 08/22/22 History nitroglycerin 0.4 mg sublingual 0.4 mg sublingual DIRECTED 11/30/12 08/22/22 History tablet (Nitrostat) omega-3 fatty acids-fish oil 396 1 ea PO DAILY 11/30/12 08/22/22 History mg-1,200 mg capsule amlodipine 10 mg tablet (Norvasc) 15 mg PO DAILY 07/15/18 08/22/22 History N-acetyl cysteine PO DAILY 04/09/19 08/22/22 History gabapentin 300 mg capsule 600 mg PO .COMPLEX 04/13/19 08/22/22 History pantoprazole 40 mg tablet,delayed 20 mg PO DAILY 04/13/19 08/22/22 History release cholecalciferol (vitamin D3) 10 1,000 unit PO DAILY 10/12/20 08/22/22 History mcg (400 unit) chewable tablet alprazolam 0.25 mg tablet 0.25 mg PO BID PRN PRN Anxiety #20 01/13/21 08/22/22 Rx tabs cariprazine 1.5 mg (1)-3 mg (6) dose pk PO HS 10/20/21 08/22/22 History capsules in a dose pack (Vraylar) citalopram 40 mg tablet 40 mg PO DAILY 10/20/21 08/22/22 History benztropine 1 mg tablet 1 mg PO BID 08/12/22 08/22/22 History fexofenadine 180 mg tablet 180 mg PO DAILY 08/12/22 08/22/22 History olanzapine 5 mg tablet 5 mg PO DAILY 08/12/22 08/22/22 History pyridostigmine bromide 60 mg tablet 60 mg PO TID 08/12/22 08/22/22 History simvastatin 10 mg tablet 20 mg PO QPM 08/12/22 08/22/22 History deutetrabenazine 9 mg tablet 9 mg PO DAILY 08/13/22 08/22/22 History (Austedo) alprazolam 0.25 mg tablet 0.25 mg PO ONCE #1 tab 08/20/22 08/22/22 Rx METHODS: An 18-channel digitized electroencephalogram was recorded in the ambulatory setting with video. The 10/20 international system of electrode placement was used and bipolar and referential electrode montages were recorded. In addition to EEG the patient was monitored for EKG and by video. Activation procedures of photic stimulation and hyperventilation were performed if applicable. The duration of the recording was ~65 hours. DESCRIPTION OF EEG: Waking background activity: During maximal wakefulness a 9-Hz posterior background rhythm was present which was well-modulated, symmetrical, reactive to eye opening, and of moderate voltage. Faster frequencies were present in the bilateral anterior head regions. There was a normal anterior-posterior voltage gradient. Drowsy and sleeping background activity: During drowsiness, there was attenuation of the posterior dominant background rhythm and vertex waves. Normal stage II and III sleep was present with symmetrical sleep spindles, K-complexes, and vertex waves with slowing of the background rhythm to delta/theta frequencies. REM sleep manifested by rapid lateral eye movements and faster background rhythms was recorded. Arousal was unremarkable. Interictal abnormalities: none. Ictal findings: Event #1 at 0730am (no date given) -Clinical manifestations: Migraine x 1 hour -EEG findings: No abnormal or epileptic EEG changes. Event #2 at 1445 (no date given) -Clinical manifestations: Migraine x 1.5 hour while crocheting -EEG findings: No abnormal or epileptic EEG changes. Event #3 at 1845 (no date given) -Clinical manifestations: Migraine sensory x 2 hour while crocheting -EEG findings: No abnormal or epileptic EEG changes. Activating Procedures: Photic stimulation and hyperventilation were not performed. EKG: EKG revealed normal sinus rhythm. INTERPRETATION: This long-term EEG is normal during the awake and sleep states. Events captured as above, but time of occurrence was not clearly marked. PRIOR EEG: none CLINICAL CORRELATION: No focal regions of cerebral dysfunction or epileptiform activity was present. Events captured as above. Epilepsy remains a clinical diagnosis and a normal EEG does not rule out epilepsy. Clinical correlation is advised. Tierney Beard MD
== END 2022-09-06 03:24 | disposition home or self-care (01) ==
LOC: RT 03:23
PROVIDERS: PCP Family Medicine; Visit Provider Nurse Practitioner Adult Health
DX: R44.2 Other hallucinations (principal)
CPT/HCPCS: 95714; 95724

== ENCOUNTER → 2022-10-01 12:30 | Outpatient (BNVA) | payer MEDICARE, SELFPAY | PROVIDERS: PCP Family Medicine; Referring Provider Family Medicine; Visit Provider Nurse Practitioner Adult Health | DX: G43.109 Migraine with aura, not intractable, without status migrainosus (principal); G47.30 Sleep apnea, unspecified; F39 Unspecified mood [affective] disorder; G52.0 Disorders of olfactory nerve; R44.3 Hallucinations, unspecified | CPT/HCPCS: 99213; 99214 ==

== ENCOUNTER 2022-10-07 00:54 | Outpatient (CLI) | payer MEDICARE, SELFPAY ==
--- NOTE | 2022-10-07 07:48 | DI.MRI_ITS ---
Exam(s) MR BRAIN WO EXAM: MR BRAIN WO CLINICAL HISTORY: New daily migraine,?olfactory hallucination,r44.2,g43.109 TECHNIQUE: Multiplanar multisequence MRI of the brain was performed. COMPARISON: MR MRA NECK WO from 12/25/2017 FINDINGS: VENTRICLES AND EXTRA AXIAL SPACES: Normal in size and morphology for the patient's age. MIDLINE SHIFT: None. CEREBRAL PARENCHYMA: No focus of restricted diffusion to suggest acute infarct. No space-occupying le chay identified. There are areas of hyperintense signal seen in the white matter on the FLAIR and T2 weighted images likely reflecting small vessel ischemic disease. HEMORRHAGE: None. BRAINSTEM/CEREBELLUM: Normal. CALVARIUM: Normal. VISUALIZED PARANASAL SINUSES/MASTOIDS:Clear. [place]: Normal flow void. PITUITARY GLAND: Unremarkable. OTHER FINDINGS: None. IMPRESSION: 1. Age-related cerebral atrophy and small vessel ischemic disease. 2. No evidence of an acute infarct. DATA REPOSITORY:
== END 2022-10-07 01:14 ==
PROVIDERS: PCP Family Medicine; Visit Provider Nurse Practitioner Adult Health
DX: R44.2 Other hallucinations (principal); G43.109 Migraine with aura, not intractable, without status migrainosus
CPT/HCPCS: 70551

== ENCOUNTER → 2022-11-13 13:05 | Outpatient (BNVA) | payer MEDICARE, SELFPAY | PROVIDERS: PCP Family Medicine; Referring Provider Family Medicine; Visit Provider Nurse Practitioner Adult Health | DX: G47.30 Sleep apnea, unspecified (principal); G43.109 Migraine with aura, not intractable, without status migrainosus; R42 Dizziness and giddiness | CPT/HCPCS: 99213 ==

== ENCOUNTER 2022-11-13 14:44 | Outpatient (CLI) | payer MEDICARE, SELFPAY ==
[2022-11-13 14:34] LABS: HCT 42.1 % (36.0-46.0); HGB 13.8 g/dL (11.2-15.7); MCH 31.1 pg (27.0-33.0); MCHC 32.8 % (32.0-36.0); MCV 95 fL (80-95); Platelet Count 276 10^3/uL (130-400); RBC 4.44 10^6/uL (3.93-5.22); RDW 12.7 % (11.7-14.6); RDW-SD 44.6 fL; WBC 6.61 10^3/uL (4.4-10.8)
[2022-11-13 14:43] LABS: Hemoglobin A1C 5.3 % (<5.7)
[2022-11-13 15:40] LABS: ALT 15 U/L (14-59); AST 13 U/L (15-37); Albumin 3.9 g/dL (3.4-5.0); Alkaline Phosphatase 91 U/L (46-116); BUN 24 mg/dL (7-18); Bilirubin, Total 0.7 mg/dL (0.2-1.0); CREATININE 0.9 mg/dL (0.55-1.02); Calcium 8.6 mg/dL (8.5-10.1); Chloride 105 mmol/L (98-107); Estimated GFR 63.83 (mL/min/1.73m2); Glucose 102 mg/dL (74-106); Potassium 4.8 mmol/L (3.5-5.1); Sodium 142 mmol/L (136-145); TSH (W/Ref FT4) 2.71 uIU/mL (0.36-3.74); Total Protein 7.3 g/dL (6.4-8.2)
== END 2022-11-13 14:45 | disposition home or self-care (01) ==
LOC: LBO 14:45
PROVIDERS: PCP Family Medicine; Visit Provider Family Medicine
DX: R73.03 Prediabetes (principal); E04.1 Nontoxic single thyroid nodule; Z91.81 History of falling; I10 Essential (primary) hypertension; E78.5 Hyperlipidemia, unspecified
CPT/HCPCS: 36415; 80053; 85027; 83036; 84443

== ENCOUNTER → 2023-02-12 12:57 | Outpatient (BNVA) | payer MEDICARE, SELFPAY | PROVIDERS: PCP Family Medicine; Visit Provider Nurse Practitioner Adult Health | DX: G43.109 Migraine with aura, not intractable, without status migrainosus (principal); I10 Essential (primary) hypertension | CPT/HCPCS: 99213; 99214 ==

== ENCOUNTER → 2023-02-27 01:38 | Outpatient (CLI) | payer MEDICARE, SELFPAY ==
--- NOTE | 2023-02-27 14:35 | DI.US_ITS ---
APPROVED REPORT EXAM: Comprehensive 2D, Doppler, and color-flow Echocardiogram Patient Location: Out-Patient Craniologist: Summer Vallejo RDCS (AE) Indications: Cardiomegaly, Atrial Fibrillation, HTN Other Information Study Quality: Adequate Conclusion Normal left ventricular wall thickness and chamber size. Ejection fraction is 55%. Wall motion is n ormal Normal right ventricular size and systolic function Both atria are moderately enlarged The aortic valve is heavily calcified. There is moderate to severe aortic stenosis. Peak gradient i s 50, mean is 32 mmHg. There is trace aortic regurgitation. Calculated aortic valve area is 1.2 cm? ? Mitral annular calcification with mild mitral regurgitation Normal tricuspid valve with mild regurgitation. Estimated right ventricular systolic pressure is 31 mmHg Wall motion Left Ventricle The left ventricle is normal size. The left ventricular systolic function is normal. The left ventric ular ejection fraction is within the normal range. Mild concentric left ventricular hypertrophy. Ther e is normal LV segmental wall motion. There is no ventricular septal defect visualized. LVEF is 55%. Right Ventricle The right ventricle is normal size. The right ventricular systolic function is normal. Atria Left atrium is moderately dilated. Right atrium is moderately dilated. The interatrial septum is inta ct with no evidence for an atrial septal defect. Aortic Valve Aortic valve is calcified. Number of aortic valve leaflets could not be assessed. Moderate to severe aortic stenosis. Peak aortic valve gradient is 49.4 mmHg. Highest mean aortic valve gradient is 31.34 mmHg. Calculated JERAD by the continuity equation is1.2_cm2. Trace aortic regurgitation. Mitral Valve Moderate mitral annular calcification. No evidence of mitral valve stenosis. Mild mitral regurgitatio n. Tricuspid Valve The tricuspid valve is normal in structure. There is no tricuspid valve stenosis. Trace to mild tricu spid regurgitation. The RVSP is 31.2 mmHg. Pulmonic Valve Pulmonic valve is not well visualized. There is no pulmonic valvular stenosis. There is no pulmonic v alvular regurgitation. Great Vessels The aortic root is normal in size. The ascending aorta is borderline dilated. Aortic arch is normal i n caliber. IVC is normal in size and collapses >50% with inspiration. Pericardium There is no pericardial effusion. 2D Dimensions IVSD d PLAX 0.99 cm F: 0.6-1.0 Ao Root d 2.82 cm F: 2.7 - 3.3 LVPW d PLAX 0.98 cm F: 0.6 - 1.0 Ao Asc Diam d 3.44 cm F: 2.3 - 3.1 LVID d PLAX 4.80 cm F: 3.8 - 5.2 LVDs 3.44 cm F: 2.2 - 3.5 LV EF Teichholz 54.6 % FS 28.30 % LV EDV (Teich) 107.6 mL LV ESV (Teich) 48.9 mL M-Mode TAPSE 2.15 cm (M/F) >1.7 LV Volumes - Method of Disks ([employer]) Single Plane 2D LV Volumes Biplane 2D LV Volumes LV EDV A4C 104.9 mL LV EDV BP 112.45 mL F: 46 - 106 LV ESV A4C 45.8 mL LV ESV BP 43.7 mL LVEF(%) A4C 56.3 % LVEF(%) BP 61.12 % F: 54 - 74 LV EDV A2C 116.2 mL LV EDV BP Index 62.82 mL/m2 F: 29 - 61 LV ESV A2C 42.7 mL SV BP LVEF(%) A2C 63.3 % SV Index LA Volume LA Length A4C 6.0 cm LA Length A2C 6.0 cm LA Area A4C s 23.16 cm2 LA Area A2C s 21.44 cm2 LA Vol A4C A-L 75.45 mL LA Vol A2C A-L 65.30 mL LA Vol Biplane A-L 70.5 mL LA Vol/BSA A4C A-L LA Vol/BSA A2C A-L LA Vol/BSA BP A-L 39.4 mL/m2 LA Vol A4C MOD 71.3 mL LA Vol A2C MOD 57.7 mL LA Vol BP MOD 64.3 mL RA Volume RA Area A4C 21.4 cm2 RA ESV A4C (A-L) 71.4mL RA Vol/BSA A4C A-L RA Length A4C 5.5 cm RA ESV A4C (MOD) 66.6mL LV Diastology MV E' medial 0.053 (>0.07 m/s) MV E Vmax 1.33 (0.4-1.3 m/s) MV E/E' MED 25.27 (<14) MV A Vmax 1.45 (0.4-1.3 m/s) MV E' lateral 0.078 (>0.1 m/s) E/A Ratio 0.9 MV E/E' LAT 17.13 (<14) MV E' Average 0.065 m/s MV E/E'(average) 20.42 Aortic Valve AoV Vmax 3.51 m/s LVOT Vmax 1.36 m/s AoV Peak Grad 49.4 mmHg LVOT Peak Grad 7.5 mmHg AoV Area (Vmax) 1.19 cm2 LVOT VTI 0.359 m AoV VTI 0.941 m LVOT Mean Grad 4.1 mmHg AoV Mean Martín. 2.69 m/s LVOT SV 110.17 mL AoV Mean Grad 31.3 mmHg LVOT Diam s 1.95 cm AoV Area (VTI) 1.17 cm2 Velocity Ratio 0.39 Mitral Valve MV DT 292 (160-240 msec) MV Vmax TIPS 1.37 m/s MV Mean Grad 2.5 (<2mmHg) MV VTI 0.486 m Pulmonary Valve PV Vmax 1.01 (0.5-1.5 m/s) RVOT Vmax 0.85 m/s PV Peak Grad 4.0 mmHg RVOT Peak Gr. 2.9 mmHg PV Mean Martín 0.76 m/s RVOT VTI 0.180 m PV Mean Grad 2.5 mmHg RVOT Mean Gr. 1.6 mmHg Tricuspid Valve RA Pressure 3.00 mmHg TR Vmax 2.66 m/s TV S' 0.13 m/s TR Peak Grad 28.2 mmHg RVSP (TR) 31.2 mmHg
== END ==
PROVIDERS: PCP Family Medicine; Visit Provider Internal Medicine Cardiovascular Disease
DX: I51.7 Cardiomegaly (principal); I48.91 Unspecified atrial fibrillation; I10 Essential (primary) hypertension
CPT/HCPCS: 93306

== ENCOUNTER → 2023-03-17 10:20 | Outpatient (BNVA) | payer MEDICARE, SELFPAY | PROVIDERS: PCP Family Medicine; Visit Provider Internal Medicine Cardiovascular Disease | DX: I35.0 Nonrheumatic aortic (valve) stenosis (principal) | CPT/HCPCS: 99213 ==

== ENCOUNTER 2023-04-22 15:47 | Outpatient (REF) | payer MEDICARE, SELFPAY ==
[2023-04-22 15:43] LABS: HCT 39.7 % (36.0-46.0); MCH 31.1 pg (27.0-33.0); MCHC 32.7 % (32.0-36.0); MCV 95 fL (80-95); MPV 11.2 fL (8.0-11.0); Platelet Count 237 10^3/uL (130-400); RBC 4.18 10^6/uL (3.93-5.22); RDW 12.5 % (11.7-14.6); RDW-SD 43.9 fL; WBC 6.67 10^3/uL (4.4-10.8)
[2023-04-22 15:52] LABS: ALT 12 U/L (14-59); AST 12 U/L (15-37); Albumin 3.8 g/dL (3.4-5.0); Alkaline Phosphatase 82 U/L (46-116); Anion Gap 5.8 mmol/L (3-11); BUN 24 mg/dL (7-18); Bilirubin, Total 0.8 mg/dL (0.2-1.0); CO2 30.2 mmol/L (21.0-32.0); CREATININE 0.7 mg/dL (0.55-1.02); Chloride 104 mmol/L (98-107); FREE T4 1.08 ng/dL (0.76-1.46); Glucose 87 mg/dL (74-106); Magnesium 2.1 mg/dL (1.8-2.4); Potassium 4.5 mmol/L (3.5-5.1); Sodium 140 mmol/L (136-145); Total Protein 6.5 g/dL (6.4-8.2)
== END 2023-04-22 15:48 | disposition home or self-care (01) ==
LOC: NCHCN 15:47
PROVIDERS: PCP Family Medicine; Visit Provider Family Medicine
DX: R19.7 Diarrhea, unspecified (principal); I10 Essential (primary) hypertension; R63.4 Abnormal weight loss; R41.3 Other amnesia
CPT/HCPCS: 80053; 85027; 83735; 84439

== ENCOUNTER → 2023-05-05 02:49 | Outpatient (CLI) | payer MEDICARE, SELFPAY ==
[2023-05-05] MEDS: Barium Sulfate 2% W/V-Creamy Vanilla Smoothie 450 ML BTL PO (09:04)
[2023-05-05] MEDS: Normal Saline - Diluent 50 ML VIAL IJ (10:58)
[2023-05-05] MEDS: Omnipaque 350 MG/ML 500 ML BTL-Imaging package 100 ML IJ (10:59)
--- NOTE | 2023-05-05 11:10 | DI.CT_ITS ---
Exam(s) CT ABDOMEN PELVIS W EXAM: CT ABDOMEN PELVIS W CLINICAL HISTORY: UNINTENTIONAL WT LOSS, R63.4, DIARRHEA ACUTE/CHRONIC, R19.7. TECHNIQUE: Imaging Protocol: Axial computed tomography images with coronal and sagittal reformatted images were created and reviewed CONTRAST MATERIAL: Intravenous: Omnipaque 350 Contrast volume:100 ml Oral: yes / COMPARISON: CT UPPER ABD WITH CONTRAST (P) from 05/01/2011 FINDINGS: ABDOMEN and PELVIS: Lung Bases: No acute findings. Liver: Normal density. No measurable mass. Gallbladder and biliary tract: Status post cholecystectomy. Stable dilatation of the common bile lorena t. Pancreas: Normal density. No abnormal calcifications or inflammatory process. No evidence of mass. Spleen: Normal. Kidneys: Normal size, contour and axis. No radiodense stones. No obstructive uropathy. No suspicious masses seen. Adrenal glands: No masses seen. Vasculature: Abdominal aorta non-dilated. Show sclerotic changes. Soft tissues: Unremarkable. Bladder: Mostly obscured by artifact from hip prostheses. Bowel: Diverticulosis lower descending and sigmoid. No obstruction. No bowel wall thickening. Peritoneal cavity: No ascites. No focal collection or mesenteric inflammatory response. Bones: Bilateral hip prostheses create artifact in the low pelvis. Scoliosis and degenerative change s. Reproductive organs: Posterior uterine fibroid. Lymph nodes: Unremarkable. IMPRESSION:: no acute abnormality in the abdomen and pelvis. Status post cholecystectomy. Posterior uterine fibroid. Diverticulosis RADIATION DOSE DELIVERED: Total DLP DATA REPOSITORY: All CT scans at this facility are submitted to the National Radiology Data Registry (NRDR) Dose Index Registry (DIR) with the [employer] (ACR). RADIATION OPTIMIZATION: All CT scans at this facility use at least one of these dose optimization te chniques: automated exposure control; mA and/or kV adjustment per patient size (includes targeted exa ms where dose is matched to clinical indication); or iterative reconstruction.
== END ==
PROVIDERS: PCP Family Medicine; Visit Provider Family Medicine
DX: R63.4 Abnormal weight loss (principal); K57.30 Diverticulosis of large intestine without perforation or abscess without bleeding
CPT/HCPCS: 74177

== ENCOUNTER → 2023-08-14 13:08 | Outpatient (BNVA) | payer MEDICARE, SELFPAY | PROVIDERS: PCP Family Medicine; Visit Provider Nurse Practitioner Adult Health | DX: R51.9 Headache, unspecified (principal); R42 Dizziness and giddiness | CPT/HCPCS: 99215 ==

== ENCOUNTER 2023-09-24 11:36 | Emergency (ER) | payer MEDICARE, SELFPAY ==
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
--- NOTE | 2023-09-24 11:45 | RT.EKG_ITS ---
APPROVED REPORT Exam: Resting ECG Reason for Exam: sudden vomitting during exercise Patient Location: E HR:78 bpm ECG Measurements Heart Rate 78 AXIS AZ 160 P 15 QRSd 145 QRS -49 QT 431 T 122 QTc 492 Conclusion Sinus rhythm...normal P axis, V-rate 60- 99 Probable left atrial enlargement...P >50mS, <-0.10mV V1 Left bundle branch block...QRSd>120, broad/notched R ST elevation secondary to IVCD...Multiple VCG criteria Normal sinus rhythm at a rate of 78. Left axis deviation LVH based on voltage criteria in aVL. Left bundle branch block pattern. Not meeting Sgarbossa nor modified Zayas criteria for ischemia. Appea rs similar to prior dated last year.
[2023-09-24 11:46] VITALS: BP 197/89; PULSE 89; RESP 14; TEMP 36.9; O2SAT 94
--- NOTE | 2023-09-24 12:00 | DI.CT_ITS ---
Exam(s) CT ABDOMEN PELVIS W EXAM: CT ABDOMEN PELVIS W CLINICAL HISTORY: Abdominal pain vomiting. TECHNIQUE: Imaging Protocol: Axial computed tomography images with coronal and sagittal reformatted images were created and reviewed CONTRAST MATERIAL: Intravenous: Omnipaque-350 100cc Oral: None COMPARISON: CT CT ABDOMEN PELVIS W from 05/05/2023 FINDINGS: VISUALIZED LUNG BASES: No nodules nor pleural effusions evident. ABDOMEN: There is no ascites. LIVER: There are no focal hepatic lesions evident. There are again noted dilated intrahepatic ducts in both lobes. CBD is also dilated, similar to previous. GALLBLADDER/BILIARY: Gallbladder is again noted be surgically absent. CBD is dilated to diameter 12 mm, similar to previous. There are no calculi nor obvious masses in the lower CBD nor in the pancrea tic head. CBD is not dilated. PANCREAS: No evidence of pancreatic mass nor dilatation of the pancreatic duct. SPLEEN: Spleen is not enlarged. Small benign cyst again noted in the posterior aspect of the spleen. Unchanged.. Splenic and portal veins are patent. ADRENALS: There are no significant adrenal masses. KIDNEYS:No cysts evident. No solid renal masses. No calculi nor hydronephrosis.. ABDOMINAL AORTA: Abdominal aorta is heavily calcified and there is mild fusiform aneurysmal dilatatio n of the infrarenal abdominal aortic with maximum diameter 2.7 cm. There is also mild arterial megal y of the common iliac arteries bilaterally, slightly more so on the left side (1.5 cm). LYMPH NODES:There is no retroperitoneal nor paraaortic adenopathy. ABDOMINAL WALL: No evidence of significant anterior abdominal wall nor inguinal hernia. GI: There is no bowel obstruction. There is extensive sigmoid diverticulosis. No obvious acute dive rticulitis. Appears to be an element of colitis at the splenic flexure and descending colon left-zoila e. PELVIS: GI: No evidence of appendicitis. LYMPH NODES: There is no intrapelvic nor inguinal adenopathy. REPRODUCTIVE: Difficult to evaluate because of beam hardening artifact from hip prosthesis but there is calcified fibroids again noted. URINARY BLADDER: Difficult to evaluate because of beam hardening artifact from bilateral hip prosthes is. Not distended. OSSEOUS: Bilateral hip prostheses noted. Multilevel degenerative disc disease. No listhesis. No significant osseous lesions. IMPRESSION: 1. Extensive sigmoid diverticulosis. No obvious acute diverticulitis, however, please note that a jaquez btle case of diverticulitis can be missed given the extensive involvement of the sigmoid. 2. There appears to be an element of colitis in the distal transverse colon, splenic flexure and desc ending-left colon slight possibly that this may be related to under distension but appears significan tly different than the remainder of the colon. 3. Gallbladder is again noted be surgically absent. The biliary tree is again noted be dilated, both intra and extrahepatic, unchanged from previous. 4. Uterine fibroids again noted. Obvious abnormal adnexal masses. Bilateral hip prostheses. Other findings as above. RADIATION DOSE DELIVERED: Total DLP DATA REPOSITORY: All CT scans at this facility are submitted to the National Radiology Data Registry (NRDR) Dose Index Registry (DIR) with the [employer] (ACR). RADIATION OPTIMIZATION: All CT scans at this facility use at least one of these dose optimization te chniques: automated exposure control; mA and/or kV adjustment per patient size (includes targeted exa ms where dose is matched to clinical indication); or iterative reconstruction.
[2023-09-24] MEDS: Ondansetron 4 MG/2 ML VIAL IVP (12:26)
[2023-09-24] MEDS: Normal Saline 500 ML IV (12:26)
[2023-09-24 12:28] VITALS: BP 197/89; PULSE 89; RESP 14; TEMP 36.9; O2SAT 94
[2023-09-24 12:29] LABS: Lactate 1.4 mmol/L (0.6-1.4)
[2023-09-24 12:30] LABS: Abs Immature Grans 0.02 10^3/uL (0.0-0.06); Absolute Basophil Count 0.02 10^3/uL (0.0-0.2); Absolute Eosinophil Count 0.06 10^3/uL (0.0-0.7); Absolute Lymphocyte Count 0.62 10^3/uL (1.2-3.4); Absolute Neutrophil Count 5.56 10^3/uL (1.2-6.7); Basophils % 0.3; Eosinophils % 0.9; HCT 42.2 % (36.0-46.0); HGB 13.8 g/dL (11.2-15.7); Immature Grans % 0.3; Lymphocytes % 9.4; MCH 31.7 pg (27.0-33.0); MCHC 32.7 % (32.0-36.0); MCV 97 fL (80-95); MPV 10.3 fL (8.0-11.0); Monocytes % 4.6; Neutrophils % 84.5; Platelet Count 202 10^3/uL (130-400); RBC 4.35 10^6/uL (3.93-5.22); RDW 12.2 % (11.7-14.6); RDW-SD 44.3 fL; WBC 6.58 10^3/uL (4.4-10.8)
[2023-09-24 12:56] LABS: ALT 14 U/L (14-59); AST 12 U/L (15-37); Albumin 3.9 g/dL (3.4-5.0); Alkaline Phosphatase 84 U/L (46-116); Anion Gap 9.1 mmol/L (3-11); CO2 30.9 mmol/L (21.0-32.0); CREATININE 0.8 mg/dL (0.55-1.02); Calcium 8.8 mg/dL (8.5-10.1); Chloride 103 mmol/L (98-107); Estimated GFR 73.06 (mL/min/1.73m2); Glucose 144 mg/dL (74-106); Lipase 22 U/L (16-77); Potassium 3.7 mmol/L (3.5-5.1); Sodium 143 mmol/L (136-145); Total Protein 7.2 g/dL (6.4-8.2); Troponin I < 50 ng/L (< or =60)
[2023-09-24] MEDS: Normal Saline - Diluent 50 ML VIAL IJ (13:35)
[2023-09-24] MEDS: Omnipaque 350 MG/ML 500 ML BTL-Imaging package 100 ML IJ (13:36)
[2023-09-24] MEDS: Normal Saline Flush 10 ML SYR IVP (13:37)
[2023-09-24 14:06] LABS: BUN 25 mg/dL (7-18)
[2023-09-24 15:40] LABS: Troponin I < 50 ng/L (< or =60)
== END 2023-09-24 15:54 | disposition home or self-care (01) ==
PROVIDERS: Emergency Provider Emergency Medicine; PCP Family Medicine
DX: R11.2 Nausea with vomiting, unspecified (principal); K57.30 Diverticulosis of large intestine without perforation or abscess without bleeding; I44.7 Left bundle-branch block, unspecified; I10 Essential (primary) hypertension; E78.5 Hyperlipidemia, unspecified; Z90.49 Acquired absence of other specified parts of digestive tract; Z86.73 Personal history of transient ischemic attack (TIA), and cerebral infarction without residual deficits
CPT/HCPCS: 80053; 82962; 83690; 93005; 96361; 96374; 99285; 74177; 83605; 83735; 84484; 85025; 93010; 99284; J2405

== ENCOUNTER → 2023-12-01 13:25 | Outpatient (BNVA) | payer MEDICARE, SELFPAY | PROVIDERS: PCP Family Medicine; Visit Provider Nurse Practitioner Adult Health | DX: R51.9 Headache, unspecified (principal); R42 Dizziness and giddiness | CPT/HCPCS: 99214 ==

== ENCOUNTER → 2023-12-16 02:11 | Outpatient (CLI) | payer MEDICARE, SELFPAY ==
--- NOTE | 2023-12-16 12:30 | DI.US_ITS ---
APPROVED REPORT EXAM: Comprehensive 2D, Doppler, and color-flow Echocardiogram Patient Location: Out-Patient Subgrade Tester: Summer Vallejo RDCS (AE) Indications: Aortic stenosis Other Information Study Quality: Adequate Conclusion Mild concentric left ventricular hypertrophy. Ejection fraction is 55 to 60%. Wall motion is normal Normal right ventricular size and function Both atria are normal in size Aortic valve is calcified. There is moderate aortic stenosis. Peak gradient is 35, mean is 24 mmHg. Calculated aortic valve area is 1.3 cm??. There is trace aortic regurgitation Mitral annular calcification, mild mitral regurgitation Estimated right ventricular systolic pressure is 31 mmHg Wall motion Left Ventricle The left ventricle is normal size. The left ventricular systolic function is normal. The left ventric ular ejection fraction is within the normal range. Mild concentric left ventricular hypertrophy. Ther e is normal LV segmental wall motion. There is no ventricular septal defect visualized. LVEF is 55%. Right Ventricle The right ventricle is normal size. The right ventricular systolic function is normal. Atria The left atrium size is normal. The right atrium size is normal. The interatrial septum is intact wit h no evidence for an atrial septal defect. Aortic Valve Aortic valve is calcified. Number of aortic valve leaflets could not be assessed. Moderate aortic fatmata nosis. Highest mean aortic valve gradient is 24.06mmHg. Peak aortic valve gradient is 35.19mmHg._ Pete culated JERAD by the continuity equation is 1.3cm2. Trace aortic regurgitation. Mitral Valve Moderate to Severe mitral annular calcification. No evidence of mitral valve stenosis. Mild mitral re gurgitation. Tricuspid Valve The tricuspid valve is normal in structure. There is no tricuspid valve stenosis. Mild tricuspid regu rgitation. The RVSP is 31.4mmHg. Pulmonic Valve The pulmonary valve is normal in structure. There is no pulmonic valvular stenosis. There is no pulmo dayanna valvular regurgitation. Great Vessels The aortic root is normal in size. Ascending aorta is not well visualized. Aortic arch is not well vi sualized. IVC is normal in size and collapses >50% with inspiration. Pericardium There is no pericardial effusion. 2D Dimensions IVSD d PLAX 1.12 cm F: 0.6-1.0 Ao Root d 2.63 cm F: 2.7 - 3.3 LVPW d PLAX 1.10 cm F: 0.6 - 1.0 LVID d PLAX 4.49 cm F: 3.8 - 5.2 LVDs 3.22 cm F: 2.2 - 3.5 LV EF Teichholz 54.8 % FS 28.28 % LV EDV (Teich) 91.9 mL LV ESV (Teich) 41.6 mL M-Mode TAPSE 2.61 cm (M/F) >1.7 Auto EF LV EDV A4C 115.0 mL LV EDV A2C 96.8 mL LV EDV BP 105.8 mL LV ESV A4C 50.7 mL LV ESV A2C 43.8 mL LV ESV BP 47.7 mL LVEF(%) A4C 55.9 % LVEF(%) A2C 54.7 % LVEF(%) BP 54.9 % LV SV A4C 64.2 ml LV SV A2C 53.0 ml LV SV BP 58.1 ml LV CO A4C 4.3 L/min LV CO A2C 3.4 L/min LV CO BP 3.9 L/min HR A4C 67.68 BPM HR A2C 64.52 BPM LV EDV Index (BP) LA Volume LA Length A4C 5.4 cm LA Length A2C 5.5 cm LA Area A4C s 23.05 cm2 LA Area A2C s 15.40 cm2 LA Vol A4C A-L 83.22 mL LA Vol A2C A-L 36.58 mL LA Vol Biplane A-L 55.6 mL LA Vol/BSA A4C A-L LA Vol/BSA A2C A-L LA Vol/BSA BP A-L 33.3 mL/m2 LA Vol A4C MOD 76.7 mL LA Vol A2C MOD 32.6 mL LA Vol BP MOD 50.3 mL RA Volume RA Area A4C 19.0 cm2 RA ESV A4C (A-L) 55.8mL RA Vol/BSA A4C A-L RA Length A4C 5.5 cm RA ESV A4C (MOD) 53.5mL LV Diastology MV E' medial 0.063 (>0.07 m/s) MV E Vmax 1.11 (0.4-1.3 m/s) MV E/E' MED 17.74 (<14) MV A Vmax 1.50 (0.4-1.3 m/s) E/A Ratio 0.7 Aortic Valve AoV Vmax 2.97 m/s LVOT Vmax 1.31 m/s AoV Peak Grad 48.0 mmHg LVOT Peak Grad 6.9 mmHg AoV Area (Vmax) 1.27 cm2 LVOT VTI 0.336 m AoV VTI 0.753 m LVOT Mean Grad 4.4 mmHg AoV Mean Martín. 2.38 m/s LVOT SV 96.33 mL AoV Mean Grad 24.1 mmHg LVOT Diam s 1.90 cm AoV Area (VTI) 1.28 cm2 AV Regurg Peak Gr. 60.75 mmHg Velocity Ratio 0.44 AR Decel Cotton 2.0m/sec2 AR DT 1978 msec AR PHT 574 msec AR Vmax 3.90 m/s Mitral Valve MV DT 313 (160-240 msec) MV Vmax TIPS 1.62 m/s MV Mean Grad 3.3 (<2mmHg) MV VTI 0.530 m Pulmonary Valve PV Vmax 0.93 (0.5-1.5 m/s) RVOT Vmax 0.91 m/s PV Peak Grad 3.5 mmHg RVOT Peak Gr. 3.3 mmHg PV Mean Martín 0.64 m/s RVOT VTI 0.198 m PV Mean Grad 1.8 mmHg RVOT Mean Gr. 1.9 mmHg Tricuspid Valve RA Pressure 3.00 mmHg TR Vmax 2.67 m/s TV S' 0.14 m/s TR Peak Grad 28.4 mmHg RVSP (TR) 31.4 mmHg
== END ==
PROVIDERS: PCP Family Medicine; Visit Provider Internal Medicine Cardiovascular Disease
DX: I35.0 Nonrheumatic aortic (valve) stenosis (principal)
CPT/HCPCS: 93306

== ENCOUNTER → 2024-01-26 10:54 | Outpatient (BNVA) | payer MEDICARE, SELFPAY | PROVIDERS: PCP Family Medicine; Visit Provider Internal Medicine Cardiovascular Disease | DX: I35.0 Nonrheumatic aortic (valve) stenosis (principal); I77.819 Aortic ectasia, unspecified site | CPT/HCPCS: 99213 ==

== ENCOUNTER → 2024-06-01 12:56 | Outpatient (BNVA) | payer MEDICARE, SELFPAY | PROVIDERS: PCP Family Medicine; Visit Provider Nurse Practitioner Adult Health | DX: R51.9 Headache, unspecified (principal); R42 Dizziness and giddiness | CPT/HCPCS: 99214 ==

== ENCOUNTER 2024-08-14 14:00 | Observation (INO) | payer MEDICARE, SELFPAY ==
[2024-08-14] VITALS (41 sets, daily range): BP systolic 93–126; BP diastolic 50–72; PULSE 59–90; RESP 11–24; TEMP 36.5–36.9; O2SAT 93–98
--- NOTE | 2024-08-14 13:45 | RT.EKG_ITS ---
APPROVED REPORT Exam: Resting ECG Reason for Exam: chest pain Patient Location: E HR:85 bpm ECG Measurements Heart Rate 85 AXIS PA 156 P 31 QRSd 135 QRS -62 QT 393 T 109 QTc 467 Conclusion Sinus rhythm at a rate of 85 with a LBBB with appropriate ST discordance without acute ischemic moore e
--- NOTE | 2024-08-14 14:00 | DI.RAD_ITS ---
Exam(s) XR PORTABLE CHEST AP EXAM: XR PORTABLE CHEST AP CLINICAL HISTORY: chest pain TECHNIQUE: 2D digital imaging was performed. COMPARISON: CR,XR XR CHEST 2V PA LATERAL from 07/13/2021 FINDINGS: LUNGS: Clear. No pleural abnormality seen. HEART: Enlarged. AORTA: Normal diameter. Calcified. Mildly tortuous. BONES: Scoliosis and degenerative changes. Soft tissues: Unremarkable. IMPRESSION: No acute findings. DATA REPOSITORY: RADIATION DOSE DELIVERED:
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
[2024-08-14 14:16] LABS: Abs Immature Grans 0.02 10^3/uL (0.0-0.06); Absolute Basophil Count 0.04 10^3/uL (0.0-0.2); Absolute Eosinophil Count 0.14 10^3/uL (0.0-0.7); Absolute Monocyte Count 0.52 10^3/uL (0.1-0.8); Absolute Neutrophil Count 6.36 10^3/uL (1.2-6.7); Basophils % 0.5 %; Eosinophils % 1.7 %; HCT 43.1 % (36.0-46.0); HGB 14.1 g/dL (11.2-15.7); Immature Grans % 0.2 %; Lymphocytes % 15.5 %; MCH 32.4 pg (27.0-33.0); MCHC 32.7 % (32.0-36.0); MCV 99 fL (80-95); MPV 10.3 fL (8.0-11.0); Monocytes % 6.2 %; Neutrophils % 75.9 %; Platelet Count 268 10^3/uL (130-400); RBC 4.35 10^6/uL (3.93-5.22); RDW 12.1 % (11.7-14.6); RDW-SD 44.4 fL; WBC 8.38 10^3/uL (4.4-10.8)
[2024-08-14 14:41] LABS: ALT 18 U/L (14-59); AST 12 U/L (15-37); Albumin 3.8 g/dL (3.4-5.0); Alkaline Phosphatase 94 U/L (46-116); Anion Gap 8.2 mmol/L (3-11); BUN 19 mg/dL (7-18); Bilirubin, Total 0.82 mg/dL (0.2-1.0); CO2 31.8 mmol/L (21.0-32.0); CREATININE 0.8 mg/dL (0.55-1.02); Calcium 8.8 mg/dL (8.5-10.1); Chloride 104 mmol/L (98-107); Estimated GFR 73.06 (mL/min/1.73m2); Glucose 131 mg/dL (74-106); Potassium 3.5 mmol/L (3.5-5.1); Sodium 144 mmol/L (136-145); Troponin I 31 ng/L (<or=51)
[2024-08-14] MEDS: nitroGLYcerin 0.4 MG TAB SL (15:15)
[2024-08-14 15:19] LABS: Troponin I 35 ng/L (<or=51)
[2024-08-14] MEDS: nitroGLYcerin 2% 1 INCH/1 GM PKT TP (15:28)
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
--- NOTE | 2024-08-14 16:24 | DI.VRAD_ITS ---
PROCEDURE INFORMATION: Exam: XR Chest Exam date and time: 08/14/2024 3:05 PM Age: 83 years old Clinical indication: Other: Chest pain TECHNIQUE: Imaging protocol: Radiologic exam of the chest. Views: 1 view. COMPARISON: CR XR CHEST 2V PA LATERAL 07/13/2021 7:34 PM FINDINGS: Lungs: Unremarkable. No consolidation. Pleural spaces: Unremarkable. No pleural effusion. No pneumothorax. Heart/Mediastinum: Unremarkable. No cardiomegaly. Bones/joints: Distal left clavicle has been removed. Thoracic dextroscoliosis. IMPRESSION: No acute findings. Dictated and Authenticated by: Radha Deluna MD. Orderin Genaro Roberts MD
[2024-08-14 17:15] LABS: Troponin I 37 ng/L (<or=51)
--- NOTE | 2024-08-14 18:27 | W.PC.ACHO ---
Registration Status: Primary Language: Preferred Language: ED Information & Data Chief Complaint Chest Pain 08/14/24 14:16 Triage Note cp started yesterday, on and 08/14/24 14:00 off, worse today, x2 nitro by ems reduced pain. Medical / Surgical History (Last Reviewed 06/01/24 @ 13:35 by Ryann Swanson) Bipolar 1 disorder Aphthous ulcer Arthritis UTI (urinary tract infection) Ascending aorta dilation Diarrhea Reaction, situational Blood glucose elevated Abnormal vaginal bleeding in postmenopausal patient Muscle strain History of prediabetes Chest pain Urinary incontinence Blepharitis Eye tearing Dyspnea on exertion Acute diarrhea Postmenopausal bleeding Peripheral vascular disease Prediabetes Seasonal allergies Vertigo Myasthenia gravis Thyroid nodule Migraine headache with aura Light-headed Skin lesion Weight loss Facial basal cell cancer Palliative care patient Helicobacter pylori (H. pylori) infection Exercise induced bronchospasm Tinnitus Myalgia and myositis Diverticulosis of colon Dysphagia Balance problem Carpal tunnel syndrome, bilateral Fibromyalgia Left leg numbness Dizziness Cervicalgia Seasonal affective disorder Anemia Skin tag Bicuspid aortic valve Unintentional weight loss Memory deficit Fatigue CVA (cerebral vascular accident) (~1999) SHIELA treated with BiPAP GERD (gastroesophageal reflux disease) Hyperlipidemia Hypertension Diastolic dysfunction Abnormal auditory perception (12/12/14) Carpal tunnel syndrome of left wrist (01/06/18) No known problems (12/08/12) Sensorineural hearing loss, asymmetrical (02/24/15) Tinnitus, bilateral (02/24/15) Reactive airway disease (Last Reviewed 06/01/24 @ 13:35 by Ryann Swanson) S/P cholecystectomy (~2001) History of hip replacement Hx of tonsillectomy Most Recent Vital Signs Temperature 36.5 C 08/14/24 18:03 Temperature Source Temporal Artery Scan 08/14/24 18:03 Pulse 82 08/14/24 18:03 Pulse 74 08/14/24 17:10 Respiratory Rate 17 08/14/24 18:03 Blood Pressure 126/72 08/14/24 18:03 Blood Pressure Mean 74 08/14/24 17:01 Pulse Oximetry 97 08/14/24 18:03 Oxygen Delivery Method Room Air 08/14/24 18:03 Oxygen Flow Rate 0 08/14/24 18:03 Pain Level 0 08/14/24 18:03 Allergies lisinopril Allergy (Severe, Verified 08/14/24 14:02) Throat Sweilling aripiprazole (From Abilify) Allergy (Intermediate, Verified 08/14/24 14:02) Other (See Comment) latex Allergy (Intermediate, Verified 08/14/24 14:02) Topical Irritation lurasidone (From Latuda) Allergy (Verified 08/14/24 14:02) Other (See Comment) mupirocin Allergy (Verified 08/14/24 14:02) Other (See Comment) strawberry Allergy (Verified 08/14/24 14:02) Hives amitriptyline Adverse Reaction (Intermediate, Verified 08/14/24 14:02) Burning Sensation pregabalin Adverse Reaction (Mild, Verified 08/14/24 14:02) Visual Disturbances hydrochlorothiazide Adverse Reaction (Unknown, Verified 08/14/24 14:02) Unknown Environmental Allergy (Intermediate, Uncoded 08/14/24 14:02) Rhinitis amytriptyline Allergy (Mild, Uncoded 08/14/24 14:02) Other (See Comment) PCP list 03/17/23 RH adhesive bandages Adverse Reaction (Intermediate, Uncoded 08/14/24 14:02) Itching, Skinn Irritation IV IV Catheter Type [Left Forearm Saline Lock ] IV Catheter Gauge [Left 18 Forearm] Diet Orders Category Date Time Status Heart Healthy Eating [DIET] Nutrition 08/14/24 Dinner Active Diagnostics 08/14/24 08/14/24 08/14/24 Range/Units 19:28 18:15 17:09 WBC (4.4-10.8) 10^3/uL RBC (3.93-5.22) 10^6/uL Hgb (11.2-15.7) g/dL Hct (36.0-46.0) % MCV (80-95) fL MCH (27.0-33.0) pg MCHC (32.0-36.0) % RDW (11.7-14.6) % Plt Count (130-400) 10^3/uL MPV (8.0-11.0) fL Immature Gran % % Neutrophils % % Lymphocytes % % Monocytes % % Eosinophils % % Basophils % % Nucleated RBC % (0.0-0.3) % Absolute Neutrophils (1.2-6.7) 10^3/uL Absolute Lymphocytes (1.2-3.4) 10^3/uL Absolute Monocytes (0.1-0.8) 10^3/uL Absolute Eosinophils (0.0-0.7) 10^3/uL Absolute Basophils (0.0-0.2) 10^3/uL Sodium (136-145) mmol/L Potassium (3.5-5.1) mmol/L Chloride (98-107) mmol/L Carbon Dioxide (21.0-32.0) mmol/L Anion Gap (3-11) mmol/L BUN (7-18) mg/dL Creatinine (0.55-1.02) mg/dL Est GFR (CKD-EPI 2020) (mL/min/1.73m2) Glucose (74-106) mg/dL Calcium (8.5-10.1) mg/dL Total Bilirubin (0.2-1.0) mg/dL AST (15-37) U/L ALT (14-59) U/L Alkaline Phosphatase (46-116) U/L Troponin I Pending Pending Cancelled (<or=51) ng/L Total Protein (6.4-8.2) g/dL Albumin (3.4-5.0) g/dL 08/14/24 08/14/24 08/14/24 Range/Units 16:50 14:55 14:01 WBC 8.38 (4.4-10.8) 10^3/uL RBC 4.35 (3.93-5.22) 10^6/uL Hgb 14.1 (11.2-15.7) g/dL Hct 43.1 (36.0-46.0) % MCV 99 H (80-95) fL MCH 32.4 (27.0-33.0) pg MCHC 32.7 (32.0-36.0) % RDW 12.1 (11.7-14.6) % Plt Count 268 (130-400) 10^3/uL MPV 10.3 (8.0-11.0) fL Immature Gran % 0.2 % Neutrophils % 75.9 % Lymphocytes % 15.5 % Monocytes % 6.2 % Eosinophils % 1.7 % Basophils % 0.5 % Nucleated RBC % 0.0 (0.0-0.3) % Absolute Neutrophils 6.36 (1.2-6.7) 10^3/uL Absolute Lymphocytes 1.30 (1.2-3.4) 10^3/uL Absolute Monocytes 0.52 (0.1-0.8) 10^3/uL Absolute Eosinophils 0.14 (0.0-0.7) 10^3/uL Absolute Basophils 0.04 (0.0-0.2) 10^3/uL Sodium 144 (136-145) mmol/L Potassium 3.5 (3.5-5.1) mmol/L Chloride 104 (98-107) mmol/L Carbon Dioxide 31.8 (21.0-32.0) mmol/L Anion Gap 8.2 (3-11) mmol/L BUN 19 H (7-18) mg/dL Creatinine 0.8 (0.55-1.02) mg/dL Est GFR (CKD-EPI 2020) 73.06 (mL/min/1.73m2) Glucose 131 H (74-106) mg/dL Calcium 8.8 (8.5-10.1) mg/dL Total Bilirubin 0.82 (0.2-1.0) mg/dL AST 12 L (15-37) U/L ALT 18 (14-59) U/L Alkaline Phosphatase 94 (46-116) U/L Troponin I 37 35 31 (<or=51) ng/L Total Protein 7.0 (6.4-8.2) g/dL Albumin 3.8 (3.4-5.0) g/dL Intake and Output - 24 Hour Total 08/14/24 13:44 thru 08/14/24 18:12 Intake Total 204 Balance 204 Weight 61.1 kg Intake: Oral 204 Other: Urine Color Yellow Comment upon admission Falls Risk Assessment History of Falls No History 08/14/24 17:45 Contributing Factors No Factors 08/14/24 14:14 Ambulatory Aids Independent 08/14/24 17:45 Tubes/Lines None 08/14/24 17:45 Gait Evaluation No gait disturbance 08/14/24 17:45 Cognition No cognitive impairment 08/14/24 17:45 Fall Total Score 0 08/14/24 17:45 Level of Risk Standard/Low Risk 08/14/24 17:45 Problems (Last Reviewed 06/01/24 @ 13:35 by Ryann Swansno) Chest pain (Acute) Schizoaffective disorder (Acute) v v v v v v v v v Sending and/or Receiving Nurses: Please use comment section below to note any information pertinent to the patient hand-off not included above. Information / Comments: Report received from:SEBASTIÁN Shelley ED @ 17:25
[2024-08-14 18:36] LABS: Troponin I 43 ng/L (<or=51)
--- NOTE | 2024-08-14 18:45 | RESPIRATORY ---
Pt states that she wears BiPAP overnight at home for SHIELA. She is unsure of her home settings, but thinks that her DME is [facility]. Pt has only had machine now for about 7 months, and states she is fine spending the night tonight without use of a machine. Her daughter is coming up from [place] tomorrow, and pt states she will have her daughter bring the machine in then. Pt does not use any O2 at home at baseline.
[2024-08-14 19:33] LABS: Troponin I 42 ng/L (<or=51)
[2024-08-14] MEDS: Benztropine 1 MG TAB PO (22:21)
[2024-08-14] MEDS: ALPRAZolam 0.25 MG TAB PO (22:21)
[2024-08-14] MEDS: Simvastatin 10 MG TAB 20 MG PO (22:21)
[2024-08-15] VITALS (8 sets, daily range): BP systolic 101–141; BP diastolic 43–64; PULSE 50–74; RESP 12–18; TEMP 36.6–36.8; O2SAT 93–98
[2024-08-15 07:02] LABS: Calculated LDL 89 mg/dL (<100); Cholesterol 153 mg/dL (<200); HDL Cholesterol 53 mg/dL (>or=50); Triglyceride 58 mg/dL (<150)
[2024-08-15] MEDS: amLODIPine 10 MG TAB PO (08:16)
[2024-08-15] MEDS: Magnesium Oxide 400 MG TAB PO (08:16)
[2024-08-15] MEDS: Aspirin 81 MG CHEW PO (08:16)
[2024-08-15] MEDS: Pantoprazole 40 MG TABCR PO (08:16)
[2024-08-15] MEDS: OLANZapine 5 MG TAB PO (08:17)
[2024-08-15] MEDS: Benztropine 1 MG TAB PO ×2 (08:17→20:18)
[2024-08-15] MEDS: Cholecalciferol (Vitamin D3) 1,000 UNIT TAB 1000 UNITS PO (08:17)
[2024-08-15] MEDS: Famotidine 20 MG TAB 40 MG PO (08:18)
[2024-08-15] MEDS: Citalopram 20 MG TAB 40 MG PO (08:18)
[2024-08-15] MEDS: Normal Saline Flush 10 ML SYR IVP ×2 (09:24→20:19)
--- NOTE | 2024-08-15 12:30 | RT.EKG_ITS ---
APPROVED REPORT Exam: Resting ECG Reason for Exam: Increasing St segment elevation on Tele ?? Patient Location: I HR:59 bpm ECG Measurements Heart Rate 59 AXIS VT 133 P -60 QRSd 138 QRS -49 QT 474 T 118 QTc 470 Conclusion Sinus or ectopic atrial rhythm...P axis (-45,135) Left bundle branch block...QRSd>120, broad/notched R
--- NOTE | 2024-08-15 12:37 | PGE_ITS ---
Date of Service Date of service: 08/15/24 Time of Service: 12:38 Assessment and Plan Assessment and plan (1) Chest pain: Status: Acute Assessment and plan: - atypical chest pain with hx per cardiology notes. Still some SOB and chest discomfort with activity, repeat EKG without change. - added ASA 81mg - troponins negative/flat - stress/MPI for 3/3. Echo also indicated but could consider doing this as an outpatient if she is feeling better. - if patient has any change in condition suggestive of unstable angina, will need immediate transfer to tertiary center (2) GERD (gastroesophageal reflux disease): Assessment and plan: - esophageal spasm also possible diagnosis - continue famotidine, protonix as per outpatient regimen (3) Schizoaffective disorder: Status: Acute Assessment and plan: - continue current psych regimen (4) Hyperlipidemia: Assessment and plan: - fasting lipids show LDL 89 on simvastatin. Jewett <70, change to atorvastatin 40mg, also avoids amlodipine interaction. (5) Hypertension: Assessment and plan: - continue outpatient regimen (amlodipine) Subjective Subjective Patient reports: no new complaints, tolerating a regular diet and voiding w/o difficulty; denies vomiting or fever Interval history since last seen: No pain currently. She still gets a little substernal pressure and shortness of breath with activity. She lives alone and takes care of herself typically. Exam Narrative Exam Narrative: Alert and oriented, NAD, sitting up in bed. Lungs CTAb, normal effort. CV: RRR, no m/g/r. Abd: soft, NT/ND. Ext: spider veins/bruising left popliteal fossa Objective Last Vital Signs Temp 36.8 C 08/15/24 11:13 Pulse 74 08/15/24 11:13 Resp 16 08/15/24 11:13 BP 105/59 L 08/15/24 11:13 Pulse Ox 96 08/15/24 11:13 Laboratory Results - last 24 hr 08/14/24 08/14/24 08/14/24 14:01 14:55 16:50 WBC 8.38 RBC 4.35 Hgb 14.1 Hct 43.1 MCV 99 H MCH 32.4 MCHC 32.7 RDW 12.1 Plt Count 268 MPV 10.3 Immature Gran % 0.2 Neutrophils % 75.9 Lymphocytes % 15.5 Monocytes % 6.2 Eosinophils % 1.7 Basophils % 0.5 Nucleated RBC % 0.0 Absolute Neutrophils 6.36 Absolute Lymphocytes 1.30 Absolute Monocytes 0.52 Absolute Eosinophils 0.14 Absolute Basophils 0.04 Sodium 144 Potassium 3.5 Chloride 104 Carbon Dioxide 31.8 Anion Gap 8.2 BUN 19 H Creatinine 0.8 Est GFR (CKD-EPI 2020) 73.06 Glucose 131 H Calcium 8.8 Total Bilirubin 0.82 AST 12 L ALT 18 Alkaline Phosphatase 94 Troponin I 31 35 37 Total Protein 7.0 Albumin 3.8 Triglycerides Total Cholesterol LDL Cholesterol, Calc HDL Cholesterol 08/14/24 08/14/24 08/14/24 17:09 18:15 19:08 WBC RBC Hgb Hct MCV MCH MCHC RDW Plt Count MPV Immature Gran % Neutrophils % Lymphocytes % Monocytes % Eosinophils % Basophils % Nucleated RBC % Absolute Neutrophils Absolute Lymphocytes Absolute Monocytes Absolute Eosinophils Absolute Basophils Sodium Potassium Chloride Carbon Dioxide Anion Gap BUN Creatinine Est GFR (CKD-EPI 2020) Glucose Calcium Total Bilirubin AST ALT Alkaline Phosphatase Troponin I Cancelled 43 42 Total Protein Albumin Triglycerides Total Cholesterol LDL Cholesterol, Calc HDL Cholesterol 08/15/24 06:00 WBC RBC Hgb Hct MCV MCH MCHC RDW Plt Count MPV Immature Gran % Neutrophils % Lymphocytes % Monocytes % Eosinophils % Basophils % Nucleated RBC % Absolute Neutrophils Absolute Lymphocytes Absolute Monocytes Absolute Eosinophils Absolute Basophils Sodium Potassium Chloride Carbon Dioxide Anion Gap BUN Creatinine Est GFR (CKD-EPI 2020) Glucose Calcium Total Bilirubin AST ALT Alkaline Phosphatase Troponin I Total Protein Albumin Triglycerides 58 Total Cholesterol 153 LDL Cholesterol, Calc 89 HDL Cholesterol 53 H Time Spent with Patient Time Spent with Patient: 35-49 minutes Time was spent: preparing to see the patient(eg.review tests), obtaining and/or reviewing separately otained hiistory, ordering medications,tests, procedures, referring, communicating with other health residential care officer, indepentently interpreting results, counseling the patient and care coordination
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
[2024-08-15] MEDS: Nystatin POWDER 60 GM JAR TP ×2 (14:08→20:19)
--- NOTE | 2024-08-15 18:22 | RESPIRATORY ---
Pt's own ResMed [id number] V-Auto BiPAP Max IPAP: 12 Min EPAP: 4 PS: 5 TiMax: 2 Ti Min: 0.3 No O2 bleed in Mouth mask with integrated nasal pillow (Medium) DME: [employer] [facility]
[2024-08-15] MEDS: Atorvastatin 40 MG TAB PO (20:18)
[2024-08-15] MEDS: ALPRAZolam 0.25 MG TAB PO (20:18)
[2024-08-16 03:47] VITALS: BP 110/61; PULSE 48; RESP 18; TEMP 36.2; O2SAT 96
[2024-08-16 06:39] VITALS: BP 118/55; PULSE 102; RESP 18; TEMP 36.4; O2SAT 96
[2024-08-16] MEDS: Nystatin POWDER 60 GM JAR TP ×3 (09:15→19:52)
[2024-08-16] MEDS: Normal Saline Flush 10 ML SYR IVP ×3 (09:15→19:52)
[2024-08-16] MEDS: OLANZapine 5 MG TAB PO (09:16)
[2024-08-16] MEDS: Famotidine 20 MG TAB 40 MG PO (09:16)
[2024-08-16] MEDS: amLODIPine 10 MG TAB PO (09:16)
[2024-08-16] MEDS: Pantoprazole 40 MG TABCR PO (09:16)
[2024-08-16] MEDS: Magnesium Oxide 400 MG TAB PO (09:16)
[2024-08-16] MEDS: Aspirin 81 MG CHEW PO (09:16)
[2024-08-16] MEDS: Cholecalciferol (Vitamin D3) 1,000 UNIT TAB 1000 UNITS PO (09:16)
[2024-08-16] MEDS: Citalopram 20 MG TAB 40 MG PO (09:16)
[2024-08-16] MEDS: Benztropine 1 MG TAB PO ×2 (09:16→19:44)
[2024-08-16 10:46] VITALS: PULSE 62; RESP 16; TEMP 36.1; O2SAT 96
[2024-08-16 11:07] VITALS: BP 107/54
--- NOTE | 2024-08-16 11:26 | CMPROGNOTE_ITS ---
Date of service: 08/16/24 Time of Service: 11:26 Care Management Progress Note Progress Note Text Progress Note Text: Maite was lying in bed when CM met with her. She stated that she is feeling much better today, and that her chest pain has resolved. Per report, MD would like her to stay for an echo and stress test, which are scheduled for Friday and Friday, respectively. Maite is happy with this plan. CM discussed the option of HH nursing for med management, which Maite continues to be hesitant about. CM spoke to Raquel today, who expressed concerns about her mother's memory changes, noting that her house was not kept well, and that she isn't eating well; she stated that her mother weighed over 200lbs about two years ago. Raquel reported that she spent hours cleaning her mother's house yesterday, and expressed understanding about her discharge plan, which will be for Maite to return home. Raquel will also talk to her mother about accepting the help from HH. PT is recommending O/P PT. CM will continue to follow. Discharge Potential Discharge Needs: PCP F/U Appt Anticipated Barriers to Discharge: None Identified Patient/Family Education Needs: Review discharge instructions, discuss Ask Me Three Transportation: Private vehicle Plan: Anticipate Maite will return home once medically cleared. She may benefit from HH RN for med management and general oversight at home. She will transport home via private vehicle by family. She will follow up with her PCP and discharge plan of care. CM will continue to follow. Social Determinants of Health Screening Social Determinants of Health last assessed: 08/16/24 Will the Patient Participate in the Screening?: Yes Do you worry about having a steady place to live?: no Problems where you live: no known problems In the past 12 months, have you had to go without electric, gas, oil or water in your home?: no Have you or anyone in your house had to go without enough food to eat?: no Has lack of transportation kept you from medical appointments or from doing things needed for daily living?: no Has anyone in your life made you feel unsafe or unsupported?: no How hard is it for you to pay for the very basics like food, housing, medical care, and heating? Would you say it is:: Not hard at all Do you want help finding or keeping work or a job?: I do not need or want help If for any reason you need help with day-to-day activities such as bathing, preparing meals, shopping, managing finances, etc., do you get the help you need?: I could use a little more help How often do you feel lonely or isolated from those around you?: Often Do you speak a language other than Greenlandic at home?: No Does the patient want assistance with any of the above?: Yes Health Related Social Needs Health related social needs: problems with daily activities (Z73.9) and feeling lonely/isolated (Z60.8)
--- NOTE | 2024-08-16 11:33 | TELEP.MEDREC ---
Date of service: 08/16/24 Time of Service: 11:34 [facility] Allergies Allergies: lisinopril Allergy (Severe, Verified 08/14/24 14:02) Throat Sweilling aripiprazole (From Abilify) Allergy (Intermediate, Verified 08/14/24 14:02) Other (See Comment) latex Allergy (Intermediate, Verified 08/14/24 14:02) Topical Irritation lurasidone (From Latuda) Allergy (Verified 08/14/24 14:02) Other (See Comment) mupirocin Allergy (Verified 08/14/24 14:02) Other (See Comment) strawberry Allergy (Verified 08/14/24 14:02) Hives amitriptyline Adverse Reaction (Intermediate, Verified 08/14/24 14:02) Burning Sensation pregabalin Adverse Reaction (Mild, Verified 08/14/24 14:02) Visual Disturbances hydrochlorothiazide Adverse Reaction (Unknown, Verified 08/14/24 14:02) Unknown Environmental Allergy (Intermediate, Uncoded 08/14/24 14:02) Rhinitis amytriptyline Allergy (Mild, Uncoded 08/14/24 14:02) Other (See Comment) adhesive bandages Adverse Reaction (Intermediate, Uncoded 08/14/24 14:02) Itching, Skinn Irritation Interview Person Interviewed: [facility] Quality Quality of Interview/Accuracy of Medication List: Good Changes made to Home Medication List: ADDITIONS: escitalopram 10mg NAC famotidine 20mg DELETIONS: alprazolam benztropine citalopram clotrimazole famotidine 40mg magnesium oxide olanzapine Additional Notes Additional Notes: Patient did not know the names of her meds, I called [facility] who sent a list of patient's current meds. Patient reports she last took her medications at home on Sunday 08/13. Recommended Changes Attestation: The home medication list is now updated to the best of my knowledge and is ready to be reconciled by the provider. Please contact the [facility] Medication Reconciliation Pharmacist at for any questions.
--- NOTE | 2024-08-16 13:41 | NUR.NOTE ---
Documentation reviewed and I agree with documentation provided by Wendie Castro, JUAN JOSE Student. Key Garcia, MSN, RNC-OB (clinical instructor)
[2024-08-16 14:55] VITALS: BP 116/75; PULSE 51; RESP 16; TEMP 36.5; O2SAT 98
--- NOTE | 2024-08-16 15:20 | PT.INTREAT ---
PT Notes Visit Reasons: Chest Pain Inpatient Physical Therapy Treatment Note Date: 08/16/2024 Precautions: Standard, fall, activity as tolerated Subjective: Denied headache, chest pain, and lightheadedness throughout session. Fatigued after activity but with symptom resolution with rest. [place] safe using the FWW for both sessions. Objective: General Observation: Telemetry in place Mental Status: Alert and oriented x 4 Pain: Denied Vital Signs: Monitor via telemetry Bed Mobility/Transfers: Minimal cueing provided for use of B hands as needed for support, movement sequence, AD management, and posture to reduce fall risk and minimize pain report Supine to sit: stand by assist Sit?stand: stand by assist with FWW Stand?sit: stand by assist with FWW Gait: Facilitated for correct performance of level surface ambulation covering a distance of 200 feet +150 feet in the morning and 350 feet +150 feet in the afternoon using front wheeled walker with reciprocal heel toe gait pattern requiring only standby assist. BP 148/67 mmHg, HR 78 bpm, and SaO2 98% on RA. Balance: Static Sitting: Normal Dynamic Sitting: Normal Static Standing: Good Dynamic Standing: Fair THERA EX: Worked on increasing step height doing stepping exercises using 6-inch high steps x 20 for 2 sets in the morning and 1 set in the afternoon with added sidestepping onto L around practice steps while holding with both hands onto rails, stand by assist only. Assessment: Improved activity tolerance and independence using front-wheeled walker with vital signs within normal limits. NO new complaints of pain for both sessions. Was tired atfer morning session but was okay with rest. Plan of Care/Treatment Plan: 1-2x/day, 7 days/week x 1 week. Plan of care has been reviewed with the STRUCTURAL ANALYSIS ENGINEER providing the service under Physical Therapy direction. Initiate Physical Therapy intervention for strengthening, bed mobility, transfers, gait, stairs, balance training, use of assistive device. DISCHARGE RECOMMENDATIONS: [] Home with no services [] [] Home with services [specify] [X] Home with outpatient PT to maximize lower extremity strength, cardiovascular condition [] SNF for continued rehabilitation [] [] [facility] [] [] SNF versus LTC based on ability to participate and progress [] TREATMENT CODE/TIME: Session 1-- 19332 x 15 minutes for 1 unit, [id number] x 12 minutes for 1 unit (11;16-11:43). Session 2-- [id number] x 22 minutes for 1 unit (15:20-15:42).
--- NOTE | 2024-08-16 16:44 | PGE_ITS ---
Date of Service Date of service: 08/16/24 Time of Service: 16:45 Assessment and Plan Assessment and plan (1) Chest pain: Status: Acute Assessment and plan: - atypical chest pain with hx per cardiology notes. Anginal symtoms have resovled - added ASA 81mg - troponins negative/flat - stress/MPI was ordered for today, but severe is contraindication, so deferred to after echo. 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 [place] <70, changed to atorvastatin 40mg, also avoids amlodipine interaction. (5) Hypertension: Assessment and plan: - continue outpatient regimen (amlodipine) Subjective Subjective Patient reports: no new complaints, feels better, tolerating a regular diet and voiding w/o difficulty; denies nausea, vomiting or fever Interval history since last seen: events: MPI cancelled this morning She is feeling better. No longer getting chest pain/pressure, even with walking. Gets tired with walking, but not really short of breath. Exam Narrative Exam Narrative: Alert and oriented, NAD, sitting up in bed. Lungs CTAb, normal effort. CV: RRR, 3/6 systolic murmur at LUSB to neck, no g/r. Abd: soft, NT/ND. Ext: spider veins, non tender, no edema Objective Last Vital Signs Temp 36.5 C 08/16/24 14:55 Pulse 51 L 08/16/24 14:55 Resp 16 08/16/24 14:55 BP 116/75 08/16/24 14:55 Pulse Ox 98 08/16/24 14:55 Time Spent with Patient Time Spent with Patient: 35-49 minutes Time was spent: preparing to see the patient(eg.review tests), obtaining and/or reviewing separately otained hiistory, ordering medications,tests, procedures, referring, communicating with other health director of career services, indepentently interpreting results, counseling the patient and care coordination
[2024-08-16] MEDS: Atorvastatin 40 MG TAB PO (19:44)
[2024-08-16] MEDS: ALPRAZolam 0.25 MG TAB PO (19:44)
[2024-08-16 23:16] VITALS: BP 103/77; PULSE 51; TEMP 36.4; O2SAT 93
[2024-08-17 07:27] VITALS: BP 140/78; PULSE 56; RESP 12; TEMP 36.7; O2SAT 97
--- NOTE | 2024-08-17 09:27 | PT.INTREAT ---
PT Notes Visit Reasons: Chest Pain Inpatient Physical Therapy Treatment Note Date: 08/17/2024 Precautions: Standard, fall, activity as tolerated Subjective: Denied headache, chest pain, and lightheadedness throughout session. [place] safe using the FWW for both sessions. Objective: General Observation: Telemetry in place Mental Status: Alert and oriented x 4 Pain: Denied Vital Signs: Monitor via telemetry Bed Mobility/Transfers: Minimal cueing provided for use of B hands as needed for support, movement sequence, AD management, and posture to reduce fall risk and minimize pain report Supine to sit: stand by assist Sit?stand: stand by assist with FWW Stand?sit: stand by assist with FWW Gait: Facilitated correct performance of level surface ambulation covering a distance of 200 feet +150 feet in the morning and 350 feet +150 feet in the afternoon using front wheeled walker with reciprocal heel toe gait pattern requiring only standby assist. BP 148/67 mmHg, HR 78 bpm, and SaO2 98% on RA. THERA EX: Worked on increasing stability of walking by performaing standing level balance exercises while holding onto window pane in room for support: Bilateral heel raises x 10 Partial knee bends x 10 Sidestepping x 5 for 2 sets Balance: Static Sitting: Normal Dynamic Sitting: Normal Static Standing: Good Dynamic Standing: Fair THERA EX: Worked on increasing step height doing stepping exercises using 6-inch high steps x 20 for 2 sets in the morning and 1 set in the afternoon with added sidestepping onto L around practice steps while holding with both hands onto rails, stand by assist only. Assessment: Improved activity tolerance and independence using front-wheeled walker with vital signs within normal limits. No new complaints of pain for both sessions. Was tired atfer morning session but was okay with rest. Plan of Care/Treatment Plan: 1-2x/day, 7 days/week x 1 week. Plan of care has been reviewed with the DEWATERING FILTERING SUPERVISOR providing the service under Physical Therapy direction. Initiate Physical Therapy intervention for strengthening, bed mobility, transfers, gait, stairs, balance training, use of assistive device. DISCHARGE RECOMMENDATIONS: [] Home with no services [] [] Home with services [specify] [X] Home with outpatient PT to maximize lower extremity strength, cardiovascular condition [] SNF for continued rehabilitation [] [] [facility] [] [] SNF versus LTC based on ability to participate and progress [] TREATMENT CODE/TIME: Session 1-- [id number] x 20 minutes for 1 unit, [id number] x 12 minutes for 1 unit (09:27-09:47). Session 2-- [id number] x 23 minutes for 2 unit (14:21-14:44).
--- NOTE | 2024-08-17 09:30 | DI.US_ITS ---
APPROVED REPORT EXAM: Comprehensive 2D, Doppler, and color-flow Echocardiogram Patient Location: In-Patient Brick Machine Operator: Rosalia Mosley RT (R) (CT) [facility] Rhythm: Bradycardia Indications: Chest pain. Conclusion Moderate concentric left ventricular hypertrophy. Ejection fraction is 65 to 70%. Diastolic functio n is normal for age. There are no segmental wall motion abnormalities Normal right ventricular size and function Both atria are normal in size Aortic valve is sclerotic and trileaflet with moderate to severe regurgitation. Peak gradient is 66, mean 37 mmHg. Calculated aortic valve area is 1 cm??. There is trace aortic regurgitation Mitral annular calcification with trace mitral regurgitation Estimated right ventricular systolic pressure is 31 mmHg Wall motion Left Ventricle The left ventricle is normal size. The left ventricular systolic function is normal. The left ventric ular ejection fraction is within the normal range. Moderate concentric left ventricular hypertrophy. There is no evidience of LVOT obstruction. Wall motion scoring is all normal. Grade I diastolic dysfu nction. There is no ventricular septal defect visualized. LVEF is 65-70%. Right Ventricle The right ventricle is normal size. The right ventricular systolic function is normal. There is svetlana l right ventricular wall thickness. Atria The left atrium size is normal. The right atrium size is normal. Small PFO is noted. Aortic Valve Aortic valve is probably trileaflet. Aortic valve leaflets are mild to moderately thickened. There is decreased leaflet excursion. Moderate to severe aortic stenosis. Calculated JERAD by the continuity e quation is 1.1 cm2. Peak aortic valve gradient is 65.89 mmHg. Highest mean aortic valve gradient is 3 6.84 mmHg. Gradients have increased since prior 02/27/2023. Trace aortic regurgitation. Mitral Valve Mitral valve leaflets are thickened with annular calcification. No evidence of mitral valve stenosis. Trace mitral regurgitation. Tricuspid Valve The tricuspid valve is normal in structure. There is no tricuspid valve stenosis. Trace tricuspid reg urgitation. The RVSP is 31 mmHg. Pulmonic Valve The pulmonary valve is normal in structure. There is no pulmonic valvular stenosis. There is no pulmo dayanna valvular regurgitation. Great Vessels The aortic root is normal in size. The pulmonary artery is normal. The ascending aorta is normal in s ize. IVC is normal in size and collapses >50% with inspiration. Pericardium There is no pericardial effusion. There is no pleural effusion.
[2024-08-17] MEDS: Citalopram 20 MG TAB 40 MG PO (09:53)
[2024-08-17] MEDS: Pantoprazole 40 MG TABCR PO (09:54)
[2024-08-17] MEDS: Famotidine 20 MG TAB 40 MG PO (09:54)
[2024-08-17] MEDS: amLODIPine 10 MG TAB PO (09:55)
[2024-08-17] MEDS: Magnesium Oxide 400 MG TAB PO (09:55)
[2024-08-17] MEDS: Benztropine 1 MG TAB PO (09:55)
[2024-08-17] MEDS: Aspirin 81 MG CHEW PO (09:55)
[2024-08-17] MEDS: OLANZapine 5 MG TAB PO (09:55)
[2024-08-17] MEDS: Cholecalciferol (Vitamin D3) 1,000 UNIT TAB 1000 UNITS PO (09:55)
[2024-08-17] MEDS: Normal Saline Flush 10 ML SYR IVP (09:56)
[2024-08-17] MEDS: Nystatin POWDER 60 GM JAR TP ×2 (09:59→14:11)
--- NOTE | 2024-08-17 10:04 | PDOC.CMPRO ---
Date of service: 08/17/24 Time of Service: 10:04 Care Management Progress Note Discharge Potential Discharge Needs: PCP F/U Appt Anticipated Barriers to Discharge: Treatment delay Patient/Family Education Needs: Review discharge instructions, discuss Ask Me Three Transportation: Private vehicle Plan: Anticipate Maite will return home once medically cleared. She may benefit from HH RN for med management and general oversight at home. She will transport home via private vehicle by family. She will follow up with her PCP and discharge plan of care. CM will continue to follow. Social Determinants of Health Screening Social Determinants of Health last assessed: 08/17/24 Will the Patient Participate in the Screening?: Yes Do you worry about having a steady place to live?: no Problems where you live: no known problems In the past 12 months, have you had to go without electric, gas, oil or water in your home?: no Have you or anyone in your house had to go without enough food to eat?: no Has lack of transportation kept you from medical appointments or from doing things needed for daily living?: no Has anyone in your life made you feel unsafe or unsupported?: no How hard is it for you to pay for the very basics like food, housing, medical care, and heating? Would you say it is:: Not hard at all Do you want help finding or keeping work or a job?: I do not need or want help If for any reason you need help with day-to-day activities such as bathing, preparing meals, shopping, managing finances, etc., do you get the help you need?: I could use a little more help How often do you feel lonely or isolated from those around you?: Often Do you speak a language other than [place] at home?: No Does the patient want assistance with any of the above?: Yes Health Related Social Needs Health related social needs: problems with daily activities (Z73.9) and feeling lonely/isolated (Z60.8)
[2024-08-17] MEDS: Acetaminophen 500 MG TAB PO (11:09)
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
[2024-08-17 16:12] VITALS: BP 106/53; PULSE 54; RESP 18; TEMP 37; O2SAT 97
--- NOTE | 2024-08-17 16:22 | CMDISCH_ITS ---
Date of service: 08/17/24 Time of Service: 16:22 LACE Index Scoring Tool Questions: Length of Stay (in days): 3 Was the patient admitted via the E.D.?: Yes Comorbidities: Cerebrovascular Disease and Congestive Heart Failure E.D. Visits: 1 Answers: Total Score: 10 Risk of Readmission: High Risk Care Management Discharge Plan Reason for Hospitalization: chest pain Discharge Plan: Maite will return home once with no new services. Per PT, she may benefit from outpatient PT. She will transport home via private vehicle by via RCT and will follow up with her PCP and discharge plan of care. Patient/Family Education Needs: review of discharge instructions, limitations, follow up plan, discuss Ask Me Three. Services Needed at Discharge: Physical Therapy SDOH Health Related Social Needs: Health related social needs problems with daily activi ties (Z73.9), feeling lonely/isolated (Z60.8)
== END 2024-08-17 17:20 | disposition home or self-care (01) ==
LOC: ER 16:53 → MS 17:39
PROVIDERS: Admitting Provider Hospitalist; Emergency Provider Emergency Medicine; PCP Family Medicine; Responsible Provider Family Medicine; Visit Provider Hospitalist
DX: R07.89 Other chest pain (principal); K21.9 Gastro-esophageal reflux disease without esophagitis; F25.9 Schizoaffective disorder, unspecified; E78.5 Hyperlipidemia, unspecified; Z79.899 Other long term (current) drug therapy; I44.7 Left bundle-branch block, unspecified; I11.0 Hypertensive heart disease with heart failure; I50.30 Unspecified diastolic (congestive) heart failure; I35.0 Nonrheumatic aortic (valve) stenosis; F41.9 Anxiety disorder, unspecified; F31.9 Bipolar disorder, unspecified; G47.30 Sleep apnea, unspecified; K52.9 Noninfective gastroenteritis and colitis, unspecified; H90.3 Sensorineural hearing loss, bilateral; R06.02 Shortness of breath
CPT/HCPCS: 00123; 36415; 80053; 80061; 93005; 93306; 97110; 97161; 97530; 99285; 71045; 84484; 85025; 93010; 99223; 99232; 99239; G0378

== ENCOUNTER 2024-08-23 13:58 | Emergency (ER) | payer MEDICARE, SELFPAY ==
[2024-08-23] VITALS (12 sets, daily range): BP systolic 131–132; BP diastolic 67–74; PULSE 65–75; RESP 18–20; TEMP 36.6–37.1; O2SAT 93–95
--- NOTE | 2024-08-23 13:45 | RT.EKG_ITS ---
APPROVED REPORT Exam: Resting ECG Reason for Exam: chest pain Patient Location: E HR:68 bpm ECG Measurements Heart Rate 68 AXIS [place] 178 P 26 QRSd 135 QRS -57 QT 440 T 109 QTc 469 Conclusion Sinus rhythm...normal P axis, V-rate 60- 99 Left bundle branch block...QRSd>120, broad/notched R ST elevation secondary to IVCD...Multiple VCG criteria
[2024-08-23 14:21] LABS: Abs Immature Grans 0.03 10^3/uL (0.0-0.06); Absolute Basophil Count 0.03 10^3/uL (0.0-0.2); Absolute Eosinophil Count 0.11 10^3/uL (0.0-0.7); Absolute Lymphocyte Count 1.15 10^3/uL (1.2-3.4); Absolute Monocyte Count 0.44 10^3/uL (0.1-0.8); Absolute Neutrophil Count 6.95 10^3/uL (1.2-6.7); Basophils % 0.3 %; Eosinophils % 1.3 %; HCT 44.2 % (36.0-46.0); HGB 14.2 g/dL (11.2-15.7); Immature Grans % 0.3 %; Lymphocytes % 13.2 %; MCH 31.8 pg (27.0-33.0); MCHC 32.1 % (32.0-36.0); MCV 99 fL (80-95); MPV 10.7 fL (8.0-11.0); Monocytes % 5.1 %; Neutrophils % 79.8 %; Platelet Count 234 10^3/uL (130-400); RBC 4.46 10^6/uL (3.93-5.22); RDW-SD 44.4 fL; WBC 8.71 10^3/uL (4.4-10.8)
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
--- NOTE | 2024-08-23 14:30 | DI.RAD_ITS ---
Exam(s) XR CHEST 1V IN DI DEPT EXAM: XR CHEST 1V IN DI DEPT CLINICAL HISTORY: chest pain. TECHNIQUE: 2D digital imaging was performed. COMPARISON: CR,XR XR PORTABLE CHEST AP from 08/14/2024 FINDINGS: Single AP portable view. Heart size is upper normal. The mediastinum is not widened. Lungs are clear. No infiltrates nor obvious pleural effusions. IMPRESSION: No acute pulmonary findings on this single AP portable view of the chest.Heart size appears minimally prominent. No new radiographic findings when compared to prior image of 08/14/2024 DATA REPOSITORY: RADIATION DOSE DELIVERED:
[2024-08-23 14:32] LABS: PTT Activated 22.3 sec (20.6-30.2); Prothrombin Time 10.4 sec (9.1-11.1)
[2024-08-23 14:47] LABS: ALT 19 U/L (14-59); AST 18 U/L (15-37); Albumin 3.8 g/dL (3.4-5.0); Alkaline Phosphatase 100 U/L (46-116); Anion Gap 7.6 mmol/L (3-11); BUN 20 mg/dL (7-18); Bilirubin, Total 0.6 mg/dL (0.2-1.0); CO2 29.4 mmol/L (21.0-32.0); CREATININE 0.8 mg/dL (0.55-1.02); Calcium 8.8 mg/dL (8.5-10.1); Chloride 107 mmol/L (98-107); Estimated GFR 72.61 (mL/min/1.73m2); Glucose 134 mg/dL (74-106); Magnesium 2.2 mg/dL (1.8-2.4); NT-proBNP 368 pg/mL (<300); Potassium 4.3 mmol/L (3.5-5.1); Sodium 144 mmol/L (136-145); Total Protein 7.2 g/dL (6.4-8.2); Troponin I 22 ng/L (<or=51)
[2024-08-23 15:20] LABS: Troponin I 25 ng/L (<or=51)
== END 2024-08-23 15:54 | disposition home or self-care (01) ==
PROVIDERS: Emergency Provider Emergency Medicine; PCP Family Medicine
DX: R07.9 Chest pain, unspecified (principal); I35.0 Nonrheumatic aortic (valve) stenosis; I44.7 Left bundle-branch block, unspecified; I11.0 Hypertensive heart disease with heart failure; I50.32 Chronic diastolic (congestive) heart failure; E78.5 Hyperlipidemia, unspecified; Z86.73 Personal history of transient ischemic attack (TIA), and cerebral infarction without residual deficits; Z87.891 Personal history of nicotine dependence
CPT/HCPCS: 36415; 80053; 93005; 99285; 71045; 83735; 83880; 84484; 85025; 85610; 85730; 93010

== ENCOUNTER → 2024-08-24 09:43 | Outpatient (BNVA) | payer MEDICARE, SELFPAY | PROVIDERS: PCP Family Medicine; Referring Provider Family Medicine; Visit Provider Internal Medicine Cardiovascular Disease | DX: I35.0 Nonrheumatic aortic (valve) stenosis (principal) | CPT/HCPCS: 99214 ==

== ENCOUNTER → 2024-09-02 13:44 | Outpatient (BNVA) | payer MEDICARE, SELFPAY | PROVIDERS: PCP Family Medicine; Visit Provider Nurse Practitioner Adult Health | DX: G43.109 Migraine with aura, not intractable, without status migrainosus (principal); I10 Essential (primary) hypertension | CPT/HCPCS: 99214 ==